=== PATIENT | female | born 1960 | race Caucasian/White ===

== ENCOUNTER 2017-01-11 11:29 | Inpatient (IN) | payer MEDICARE, MEDICAID ==
[~2017-01-11] VITALS: Ht 162.6 cm; Wt 76.8 kg
[~2017-01-11 11:29] MED LIST: AMYL1CAP45 PO; ARIP10TA14 PO; DULO60CA44 PO; GABA-531 PO; INSU100V12 SQ; LISI40TA4 PO; LOPE2 PO; OMEP20 PO
[2017-01-11] MEDS ORDERED: CLON.5 PO (11:43)
[2017-01-11] MEDS ORDERED: SODIUM CHLORIDE 0.9% 1,000 ML IV ONE (11:45)
[2017-01-11 12:40] LABS: APPEARANCE,URINE CLEAR (CLEAR); GLUCOSE, URINE (UA) >=1000 mg/dL (NEGATIVE); KETONES,URINE NEGATIVE (NEGATIVE); LEUKOCYTE ESTERASE ,URINE NEGATIVE (NEGATIVE); OCCULT BLOOD,URINE NEGATIVE (NEGATIVE); PH,URINE 5.5 (5.0-8.0); PROTEIN,URINE NEGATIVE (NEGATIVE)
[2017-01-11 12:42] LABS: ADD UA MICROSCOPIC YES
[2017-01-11 12:50] LABS: RBC,URINE 0-2 /HPF (0-2); SQUAMOUS EPITHELIAL CELL,UR Few /LPF (None Seen); WBC,URINE 0-2 /HPF (0-5)
[2017-01-11 13:03] LABS: BASOPHILS # (AUTO) 0.02 K/uL (0.00-0.20); BASOPHILS % (AUTO) 0.5 % (0.0-2.0); EOSINOPHILS # (AUTO) 0.04 K/uL (0.00-0.70); EOSINOPHILS % (AUTO) 1.09 % (1.0-6.0); HEMOGLOBIN 9.5 g/dL (12.0-16.0); LYMPHOCYTES # (AUTO) 1.4 K/uL (1.0-4.8); LYMPHOCYTES % (AUTO) 35.4 % (22.0-44.0); MEAN CORPUSCULAR HEMOGLOBIN 27.4 pg (26.0-34.0); MEAN CORPUSCULAR HGB CONC 32.9 G/dL (31.0-37.0); MEAN CORPUSCULAR VOLUME 83 fL (80-100); MONOCYTES # (AUTO) 0.5 K/uL (0.1-1.0); PLATELET COUNT (AUTO) 244 K/uL (150-450); RED BLOOD CELL COUNT(AUTO) 3.47 MIL/uL (4.00-5.20); RED CELL DISTRIBUTION WIDTH 15.7 % (11.5-14.5)
[2017-01-11 13:24] LABS: ANION GAP 7 mmol/L (8-16); CALCIUM, TOTAL 9.3 mg/dL (8.8-10.5); CARBON DIOXIDE 27 mmol/L (22-29); CHLORIDE 103 mmol/L (98-107); CREATININE 1.75 mg/dL (0.60-1.30); GLOMERULAR FILTR. RATE CALC 30 mL/min (>60); POTASSIUM 4.4 mmol/L (3.5-5.1); SODIUM SERUM 137 mmol/L (136-145); UREA NITROGEN, BLOOD 29 mg/dL (7-18)
[2017-01-11 13:30] LABS: ALANINE AMINOTRANSFERASE 38 U/L (12-78); ASPARTATE AMINOTRANSFERASE 72 U/L (15-37); BILIRUBIN,TOTAL 0.3 mg/dL (0.1-1.0); TOTAL PROTEIN, SERUM 7.1 g/dL (6.4-8.2)
[2017-01-11 13:40] LABS: ACETAMINOPHEN < 2 mcg/mL (10-30)
[2017-01-11 13:43] LABS: SALICYLATE < 2.8 mg/dL (2.8-20.0)
[2017-01-11 15:50] LABS: SALICYLATE < 2.8 mg/dL (2.8-20.0)
[2017-01-11 16:08] LABS: ACETAMINOPHEN < 2 mcg/mL (10-30)
[2017-01-11] MEDS ORDERED: ZOLPIDEM TARTRATE 10 MG TABLET PO PRN (18:15)
[2017-01-11] MEDS ORDERED: LORazepam 2 MG TABLET PO PRN (18:15)
[2017-01-11] MEDS ORDERED: QUEtiapine FUMARATE 100 MG TABLET PO PRN (18:15)
[2017-01-11] MEDS: GABAPENTIN 300 MG CAPSULE PO SCH (20:51)
[2017-01-11 20:57] LABS: GLUCOSE COMMENT 1 Received Meds; GLUCOSE,POINT OF CARE 387 MG/DL (70-110)
[2017-01-11] MEDS ORDERED: PNEUMOCOCCAL VACCINE POLYVALENT 0.5 ML VIAL [PPSV23] IM ONE (21:45)
[2017-01-11] MEDS ORDERED: INFLUENZA VIRUS VACCINE QVS 2016-17 (3YR+)/PF 60 MCG/0.5 ML SYRINGE IM ONE (21:45)
[2017-01-11 21:49] VITALS: BP 155/85
[2017-01-11] MEDS ORDERED: GLUCAGON,HUMAN RECOMBINANT 1 MG VIAL IM PRN (22:00)
[2017-01-11] MEDS ORDERED: ACETAMINOPHEN 325 MG TABLET PO PRN (22:00)
[2017-01-11] MEDS: LISINOPRIL 20 MG TABLET PO SCH (22:14)
[2017-01-11] MEDS ORDERED: INSULIN ASPART 100 UNITS/ML SQ ONE (22:15)
[2017-01-12] MEDS ORDERED: INSULIN GLARGINE,HUM.REC.ANLOG 100 UNITS/ML SQ ONE (05:30)
[2017-01-12 06:30] VITALS: BP 116/67
[2017-01-12] MEDS: INSULIN ASPART 100 UNITS/ML SQ PRN ×4 (07:07→20:42)
[2017-01-12 07:12] LABS: GLUCOSE,POINT OF CARE 272 MG/DL (70-110)
[2017-01-12 08:22] VITALS: BP 107/70
[2017-01-12] MEDS ORDERED: INSULIN DETEMIR 100 UNITS/ML SQ SCH (09:00)
[2017-01-12] MEDS: ARIPiprazole 10 MG TABLET PO SCH (09:43)
[2017-01-12] MEDS: OMEPRAZOLE 20 MG CAPSULE PO SCH ×2 (09:44→16:48)
[2017-01-12] MEDS: LISINOPRIL 20 MG TABLET PO SCH (09:44)
[2017-01-12] MEDS: AMYLASE/LIPASE/PROTEASE 30/6/19 MU DR CAPSULE PO SCH (09:44)
[2017-01-12] MEDS: DULoxetine HCL 20 MG CAPSULE PO SCH (09:44)
[2017-01-12] MEDS: MULTIVITAMINS WITH IRON TABLET PO SCH (09:45)
[2017-01-12] MEDS: GABAPENTIN 300 MG CAPSULE PO SCH ×4 (09:47→20:43)
[2017-01-12 10:57] LABS: GLUCOSE,POINT OF CARE 386 MG/DL (70-110)
[2017-01-12 16:54] VITALS: BP 110/66
[2017-01-12] MEDS ORDERED: INSULIN GLARGINE,HUM.REC.ANLOG 100 UNITS/ML SQ SCH (21:00)
[2017-01-13 00:10] VITALS: BP 101/66
[2017-01-13] MEDS: INSULIN ASPART 100 UNITS/ML SQ PRN ×4 (07:01→20:46)
[2017-01-13 08:24] LABS: HEMOGLOBIN A1C 11.8 % (4.5-6.2)
[2017-01-13 08:34] LABS: CHOL/HDL RATIO 2.8 (3.9-5.7); THYROID STIMULATING HORMONE 0.59 uIU/mL (0.36-3.74)
[2017-01-13 08:53] VITALS: BP 116/71
[2017-01-13 09:22] LABS: GLUCOSE,POINT OF CARE 229 MG/DL (70-110)
[2017-01-13 09:22] LABS: GLUCOSE,POINT OF CARE 254 MG/DL (70-110)
[2017-01-13 09:22] LABS: GLUCOSE,POINT OF CARE 269 MG/DL (70-110)
[2017-01-13] MEDS: ARIPiprazole 10 MG TABLET PO SCH (09:27)
[2017-01-13] MEDS: LISINOPRIL 20 MG TABLET PO SCH (09:27)
[2017-01-13] MEDS: GABAPENTIN 300 MG CAPSULE PO SCH ×4 (09:27→20:36)
[2017-01-13] MEDS: OMEPRAZOLE 20 MG CAPSULE PO SCH ×2 (09:27→16:37)
[2017-01-13] MEDS: MULTIVITAMINS WITH IRON TABLET PO SCH (09:27)
[2017-01-13] MEDS: DULoxetine HCL 20 MG CAPSULE PO SCH (09:27)
[2017-01-13] MEDS: AMYLASE/LIPASE/PROTEASE 30/6/19 MU DR CAPSULE PO SCH (09:28)
[2017-01-13] MEDS: INSULIN DETEMIR 100 UNITS/ML SQ SCH (09:52)
[2017-01-13 10:01] LABS: GLUCOSE,POINT OF CARE 318 MG/DL (70-110)
[2017-01-13 11:32] LABS: GLUCOSE,POINT OF CARE 339 MG/DL (70-110)
[2017-01-13] MEDS: GEMFIBROZIL 600 MG TABLET PO SCH (16:37)
[2017-01-13 16:38] VITALS: BP 106/73
[2017-01-13 16:52] LABS: GLUCOSE,POINT OF CARE 383 MG/DL (70-110)
[2017-01-13 20:52] LABS: GLUCOSE,POINT OF CARE 303 MG/DL (70-110)
[2017-01-14 06:12] VITALS: BP 140/76
[2017-01-14] MEDS: GEMFIBROZIL 600 MG TABLET PO SCH ×2 (06:41→16:11)
[2017-01-14] MEDS: INSULIN ASPART 100 UNITS/ML SQ PRN ×3 (06:43→16:30)
[2017-01-14] MEDS ORDERED: FERROUS SULFATE 325 MG EC TABLET PO SCH (07:00)
[2017-01-14 09:00] VITALS: BP 132/75
[2017-01-14] MEDS: GABAPENTIN 300 MG CAPSULE PO SCH ×3 (09:32→16:36)
[2017-01-14] MEDS: LISINOPRIL 20 MG TABLET PO SCH (09:32)
[2017-01-14] MEDS: MULTIVITAMINS WITH IRON TABLET PO SCH (09:32)
[2017-01-14] MEDS: ARIPiprazole 10 MG TABLET PO SCH (09:32)
[2017-01-14] MEDS: OMEPRAZOLE 20 MG CAPSULE PO SCH ×2 (09:32→16:36)
[2017-01-14] MEDS: DULoxetine HCL 20 MG CAPSULE PO SCH (09:33)
[2017-01-14] MEDS: AMYLASE/LIPASE/PROTEASE 30/6/19 MU DR CAPSULE PO SCH (09:33)
[2017-01-14] MEDS: INSULIN DETEMIR 100 UNITS/ML SQ SCH (09:44)
[2017-01-14 10:27] LABS: GLUCOSE,POINT OF CARE 271 MG/DL (70-110)
[2017-01-14 11:37] LABS: GLUCOSE,POINT OF CARE 294 MG/DL (70-110)
[2017-01-14 11:37] LABS: GLUCOSE,POINT OF CARE 271 MG/DL (70-110)
[2017-01-14] MEDS ORDERED: ACETAMINOPHEN 325 MG TABLET PO PRN (12:45)
[2017-01-14] MEDS ORDERED: PROMETHAZINE HCL 25 MG TABLET PO PRN (12:45)
[2017-01-14] MEDS ORDERED: MAGNESIUM HYDROXIDE SUSPENSION 30 ML UDCUP PO PRN (12:45)
[2017-01-14] MEDS ORDERED: MAG HYDROX/AL HYDROX/SIMETH ES 30 ML SUSPENSION UDCUP PO PRN (12:45)
[2017-01-14] MEDS ORDERED: LOPERAMIDE HCL 2 MG CAPSULE PO PRN (12:45)
[2017-01-14] MEDS ORDERED: DULO20CA30 PO (14:38)
[2017-01-14] MEDS ORDERED: GABA-531 PO (14:38)
[2017-01-14] MEDS ORDERED: ARIP10TA14 PO (14:38)
[2017-01-14] MEDS ORDERED: MVITFE PO (14:55)
[2017-01-14] MEDS ORDERED: GEMF600T3 PO (14:55)
[2017-01-14] MEDS ORDERED: FERR-89 PO (14:55)
[2017-01-14 16:24] LABS: GLUCOSE,POINT OF CARE 370 MG/DL (70-110)
[2017-01-14 16:36] VITALS: BP 136/83
[2017-01-15 14:37] LABS: HEPATITIS Bs ANTIGEN SCREEN P Negative (Negative); HEPATITIS C AB SCREEN 0.1 s/co ratio (0.0-0.9)
== END 2017-01-14 17:15 | disposition home or self-care (01) | DRG 885 ==
LOC: EMS 11:33 → B2S 19:30 → B2X 01-14 11:20
PROVIDERS: ADMIT Psychiatry & Neurology Psychiatry; ATTEND Psychiatry & Neurology Psychiatry
DX: F33.3 Major depressive disorder, recurrent, severe with psychotic symptoms (principal); D64.9 Anemia, unspecified; E11.42 Type 2 diabetes mellitus with diabetic polyneuropathy; E78.5 Hyperlipidemia, unspecified; F20.9 Schizophrenia, unspecified; I10 Essential (primary) hypertension; K21.9 Gastro-esophageal reflux disease without esophagitis; E11.649 Type 2 diabetes mellitus with hypoglycemia without coma; T42.4X1A Poisoning by benzodiazepines, accidental (unintentional), initial encounter; Z91.19 Patient's noncompliance with other medical treatment and regimen; Y92.89 Other specified places as the place of occurrence of the external cause; Y93.89 Activity, other specified; Y99.8 Other external cause status; Z88.5 Allergy status to narcotic agent; Z90.49 Acquired absence of other specified parts of digestive tract; Z90.710 Acquired absence of both cervix and uterus; Z79.899 Other long term (current) drug therapy; Z98.890 Other specified postprocedural states; Z28.21 Immunization not carried out because of patient refusal; Z84.89 Family history of other specified conditions; Z83.3 Family history of diabetes mellitus
CPT/HCPCS: 70450; 80074; 82962; 83036; 84439; 84443; 87081; 93005; 96360; 99285; G0480; G0481; J1815; J7030

== ENCOUNTER 2017-07-09 21:20 | Emergency (ER) | payer MEDICARE, MEDICAID ==
[~2017-07-09] VITALS: Ht 162.6 cm; Wt 68.0 kg
[~2017-07-09 21:20] MED LIST changes: +DULO20CA30 PO; -DULO60CA44 PO; +FERR-89 PO; +GEMF600T3 PO; -LOPE2 PO; +MVITFE PO
[2017-07-09] MEDS ORDERED: INSU100C14 SQ (21:22)
[2017-07-09 21:51] LABS: BASOPHILS % (AUTO) 0.8 % (0.0-2.0); EOSINOPHILS % (AUTO) 0.4 % (1.0-6.0); HEMATOCRIT 30.8 % (36-46); HEMOGLOBIN 10.1 g/dL (12.0-16.0); LYMPHOCYTES # (AUTO) 2.2 K/uL (1.0-4.8); LYMPHOCYTES % (AUTO) 52.6 % (22.0-44.0); MEAN CORPUSCULAR HEMOGLOBIN 26.3 pg (26.0-34.0); MEAN CORPUSCULAR HGB CONC 32.7 G/dL (31.0-37.0); MEAN CORPUSCULAR VOLUME 81 fL (80-100); MONOCYTES # (AUTO) 0.4 K/uL (0.1-1.0); MONOCYTES % (AUTO) 9.3 % (2.0-9.0); NEUTROPHILS # (AUTO) 1.6 K/uL (1.8-7.7); NEUTROPHILS % (AUTO) 36.9 % (40.0-70.0); PLATELET COUNT (AUTO) 201 K/uL (150-450); RED BLOOD CELL COUNT(AUTO) 3.83 MIL/uL (4.00-5.20); WHITE BLOOD COUNT (AUTO) 4.2 K/uL (4.5-11.0)
[2017-07-09 22:06] LABS: APPEARANCE,URINE CLEAR (CLEAR); GLUCOSE, URINE (UA) >=1000 mg/dL (NEGATIVE); KETONES,URINE NEGATIVE (NEGATIVE); LEUKOCYTE ESTERASE ,URINE NEGATIVE (NEGATIVE); OCCULT BLOOD,URINE NEGATIVE (NEGATIVE); PROTEIN,URINE NEGATIVE (NEGATIVE)
[2017-07-09 22:08] LABS: BILIRUBIN,TOTAL 0.5 mg/dL (0.1-1.0); CALCIUM, TOTAL 9.7 mg/dL (8.8-10.5); CREATININE 2.09 mg/dL (0.60-1.30); POTASSIUM 4.1 mmol/L (3.5-5.1); TOTAL PROTEIN, SERUM 8.1 g/dL (6.4-8.2)
[2017-07-09 22:10] LABS: ADD UA MICROSCOPIC YES
[2017-07-09 22:13] LABS: GLUCOSE,POINT OF CARE > 600 MG/DL (70-110)
[2017-07-09] MEDS ORDERED: SODIUM CHLORIDE 0.9% 1,000 ML IV ONE (22:15)
[2017-07-09 22:16] LABS: RBC MORPHOLOGY COMMENT ABNORMAL RBC MORPH
[2017-07-09 22:18] LABS: RBC,URINE 0-2 /HPF (0-2); SQUAMOUS EPITHELIAL CELL,UR Few /LPF (None Seen); WBC,URINE 0-2 /HPF (0-5)
[2017-07-09 23:32] LABS: GLUCOSE,POINT OF CARE 551 MG/DL (70-110)
[2017-07-10] MEDS ORDERED: ACETAMINOPHEN 500 MG TABLET PO ONE
[2017-07-10] MEDS ORDERED: SODIUM CHLORIDE 0.9% 2,000 ML IV ONE
[2017-07-10] MEDS ORDERED: INSULIN REGULAR, HUMAN 100 UNITS/ML IVP ONE
[2017-07-10] MEDS ORDERED: ONDANSETRON HCL 4 MG/2 ML VIAL IVP ONE
[2017-07-10] MEDS ORDERED: DIPHENOXYLATE/ATROP 2.5-0.025 MG TABLET PO ONE
[2017-07-10 01:17] LABS: GLUCOSE,POINT OF CARE 210 MG/DL (70-110)
[2017-07-10 02:32] LABS: GLUCOSE,POINT OF CARE 169 MG/DL (70-110)
[2017-07-10 03:17] VITALS: BP 157/78
== END 2017-07-10 04:00 | disposition home or self-care (01) ==
LOC: EMS 21:23
DX: K52.9 Noninfective gastroenteritis and colitis, unspecified (principal); E11.65 Type 2 diabetes mellitus with hyperglycemia; E86.0 Dehydration; F17.210 Nicotine dependence, cigarettes, uncomplicated; Z79.4 Long term (current) use of insulin; Z88.5 Allergy status to narcotic agent; Z88.6 Allergy status to analgesic agent
CPT/HCPCS: 36415; 80053; 81001; 82009; 82150; 82962; 85025; 96361; 96374; 96375; 99285; 99406; J1815; J2405; J7030

== ENCOUNTER → 2017-10-22 | Outpatient (CLI) | payer MEDICARE, OTHER ==
[~2017-10-22] MED LIST changes: -ARIP10TA14 PO; +ARIP10TA8 PO; +INSU100C14 SQ
== END | disposition home or self-care (01) ==
LOC: RADPV 15:06
PROVIDERS: ATTEND Internal Medicine Geriatric Medicine
DX: M47.812 Spondylosis without myelopathy or radiculopathy, cervical region (principal); M43.12 Spondylolisthesis, cervical region; M43.16 Spondylolisthesis, lumbar region; M54.6 Pain in thoracic spine
CPT/HCPCS: 72040; 72070; 72100

== ENCOUNTER → 2017-11-15 | Outpatient (CLI) | payer MEDICARE, OTHER | END | disposition home or self-care (01) | LOC: RADPV 12:55 | PROVIDERS: ATTEND Internal Medicine Geriatric Medicine | DX: M41.84 Other forms of scoliosis, thoracic region (principal); M43.16 Spondylolisthesis, lumbar region; M46.82 Other specified inflammatory spondylopathies, cervical region; M25.78 Osteophyte, vertebrae | CPT/HCPCS: 72040; 72072; 72100 ==

== ENCOUNTER 2018-03-14 11:59 | Inpatient (IN) | payer MEDICARE, OTHER ==
[~2018-03-14] VITALS: Ht 162.6 cm; Wt 67.3 kg
[2018-03-14] MEDS ORDERED: LISI-662 PO (12:26)
[2018-03-14] MEDS ORDERED: CALC-1017 PO (12:26)
[2018-03-14] MEDS ORDERED: PREG50 PO (12:26)
[2018-03-14] MEDS ORDERED: OMEP20 PO (12:26)
[2018-03-14] MEDS ORDERED: CARI350 PO (12:26)
[2018-03-14] MEDS ORDERED: DULO60CA44 PO (12:26)
[2018-03-14 12:33] LABS: GLUCOSE,POINT OF CARE 404 MG/DL (70-110)
[2018-03-14] MEDS ORDERED: SODIUM CHLORIDE 0.9% 1,000 ML IV ONE ×2 (13:15→13:30)
[2018-03-14] MEDS ORDERED: MAGNESIUM HYDROXIDE SUSPENSION 30 ML UDCUP PO PRN (13:30)
[2018-03-14] MEDS ORDERED: IPRATROPIUM BROMIDE 0.5 MG/2.5 ML NEB SOLUTION NEB PRN (13:30)
[2018-03-14] MEDS ORDERED: BISACODYL 10 MG RECTAL RECTAL SUPPOSITORY PR PRN (13:30)
[2018-03-14] MEDS ORDERED: DEXTROSE 50%-WATER 25 GM/50 ML SYRINGE IVP PRN ×2 (13:30→17:45)
[2018-03-14] MEDS ORDERED: ONDANSETRON HCL 4 MG/2 ML VIAL IVP PRN (13:30)
[2018-03-14] MEDS ORDERED: ALBUTEROL SULFATE 2.5 MG/0.5 ML NEB SOLUTION NEB PRN (13:30)
[2018-03-14] MEDS ORDERED: ZOLPIDEM TARTRATE 5 MG TABLET PO PRN (13:30)
[2018-03-14] MEDS ORDERED: INSULIN LISPRO 100 UNITS/ML SQ PRN (13:30)
[2018-03-14] MEDS ORDERED: HYDROmorphone 2 MG/ML SYRINGE IVP PRN (13:30)
[2018-03-14 13:41] LABS: BASOPHILS % (AUTO) 0.8 % (0.0-2.0); EOSINOPHILS % (AUTO) 0.6 % (1.0-6.0); HEMATOCRIT 32.9 % (36-46); HEMOGLOBIN 10.7 g/dL (12.0-16.0); LYMPHOCYTES # (AUTO) 1.4 K/uL (1.0-4.8); LYMPHOCYTES % (AUTO) 42.1 % (22.0-44.0); MEAN CORPUSCULAR HEMOGLOBIN 27.1 pg (26.0-34.0); MEAN CORPUSCULAR HGB CONC 32.6 G/dL (31.0-37.0); MEAN CORPUSCULAR VOLUME 83 fL (80-100); MONOCYTES # (AUTO) 0.3 K/uL (0.1-1.0); MONOCYTES % (AUTO) 8.1 % (2.0-9.0); NEUTROPHILS # (AUTO) 1.6 K/uL (1.8-7.7); NEUTROPHILS % (AUTO) 48.4 % (40.0-70.0); PLATELET COUNT (AUTO) 186 K/uL (150-450); RED BLOOD CELL COUNT(AUTO) 3.96 MIL/uL (4.00-5.20); RED CELL DISTRIBUTION WIDTH 15.2 % (11.5-14.5)
[2018-03-14 14:11] LABS: ALBUMIN 3.8 g/dL (3.4-5.0); BILIRUBIN,TOTAL 0.4 mg/dL (0.1-1.0); CALCIUM, TOTAL 10.2 mg/dL (8.8-10.5); CREATININE 1.66 mg/dL (0.60-1.30); POTASSIUM 3.8 mmol/L (3.5-5.1); TOTAL PROTEIN, SERUM 8.3 g/dL (6.4-8.2)
[2018-03-14] MEDS: HEPARIN SODIUM,PORCINE 5,000 UNITS/ML VIAL SQ SCH (14:12)
[2018-03-14 14:16] LABS: BILIRUBIN,URINE NEGATIVE (NEGATIVE); GLUCOSE, URINE (UA) >=1000 mg/dL (NEGATIVE); KETONES,URINE TRACE mg/dL (NEGATIVE); LEUKOCYTE ESTERASE ,URINE NEGATIVE (NEGATIVE); NITRATE,URINE NEGATIVE (NEGATIVE); OCCULT BLOOD,URINE NEGATIVE (NEGATIVE); PROTEIN,URINE NEGATIVE (NEGATIVE); UROBILINOGEN,URINE 0.2 mg/dL (<=1.0)
[2018-03-14] MEDS: SODIUM CHLORIDE 0.45% 1,000 ML IV SCH (14:34)
[2018-03-14 14:56] LABS: APPEARANCE,URINE HAZY (CLEAR); BACTERIA,URINE None Seen /HPF (None Seen); RBC,URINE None Seen /HPF (0-2); SQUAMOUS EPITHELIAL CELL,UR Many /LPF (None Seen); WBC,URINE None Seen /HPF (0-5)
[2018-03-14] MEDS ORDERED: INSULIN LISPRO 100 UNITS/ML SQ SCH (15:00)
[2018-03-14 15:33] LABS: GLUCOMETER DEV NAME(LOC) 6N 2D; GLUCOSE,POINT OF CARE 350 MG/DL (70-110)
[2018-03-14 15:36] VITALS: BP 135/79
[2018-03-14] MEDS: HYDROmorphone 2 MG/ML SYRINGE IVP PRN ×2 (17:01→23:59)
[2018-03-14 17:23] LABS: GLUCOMETER DEV NAME(LOC) 6N 2D; GLUCOSE,POINT OF CARE 322 MG/DL (70-110)
[2018-03-14] MEDS: ONDANSETRON HCL 4 MG/2 ML VIAL IVP PRN (17:42)
[2018-03-14] MEDS: INSULIN LISPRO 100 UNITS/ML SQ PRN (18:00)
[2018-03-14] MEDS ORDERED: PNEUMOCOCCAL VACCINE POLYVALENT 0.5 ML VIAL [PPSV23] IM ONE (18:45)
[2018-03-14 20:20] VITALS: BP 160/75
[2018-03-14] MEDS: DULoxetine HCL 60 MG CAPSULE PO SCH (20:36)
[2018-03-14] MEDS: PREGABALIN 75 MG CAPSULE PO SCH (20:36)
[2018-03-14] MEDS ORDERED: PREGABALIN 50 MG CAPSULE PO SCH (21:00)
[2018-03-14] MEDS: LISINOPRIL 20 MG TABLET PO SCH (21:08)
[2018-03-14] MEDS ORDERED: CloNIDine HCL 0.1 MG TABLET PO PRN (21:30)
[2018-03-14 22:22] LABS: GLUCOMETER DEV NAME(LOC) 6N 1E; GLUCOSE,POINT OF CARE 95 MG/DL (70-110)
[2018-03-14] MEDS: INSULIN GLARGINE,HUM.REC.ANLOG 100 UNITS/ML SQ SCH (22:49)
[2018-03-14] MEDS: CIPROFLOXACIN 400 MG/D5% WATER 200 ML IV SCH (22:55)
[2018-03-14 23:37] VITALS: BP 164/95
[2018-03-15] VITALS (7 sets, daily range): BP systolic 94–159; BP diastolic 59–85
[2018-03-15] MEDS: MetroNIDAZOLE 500 MG/NACL 100 ML IV SCH ×3 (00:04→15:23)
[2018-03-15] MEDS: ONDANSETRON HCL 4 MG/2 ML VIAL IVP PRN ×3 (00:14→18:04)
[2018-03-15] MEDS: HEPARIN SODIUM,PORCINE 5,000 UNITS/ML VIAL SQ SCH ×2 (02:56→15:23)
[2018-03-15 05:52] LABS: GLUCOMETER DEV NAME(LOC) 6N 1E; GLUCOSE,POINT OF CARE 207 MG/DL (70-110)
[2018-03-15] MEDS: INSULIN LISPRO 100 UNITS/ML SQ PRN ×3 (06:20→17:53)
[2018-03-15 06:42] LABS: BASOPHILS % (AUTO) 0.6 % (0.0-2.0); EOSINOPHILS % (AUTO) 0.3 % (1.0-6.0); HEMATOCRIT 29.7 % (36-46); HEMOGLOBIN 9.6 g/dL (12.0-16.0); LYMPHOCYTES # (AUTO) 1.9 K/uL (1.0-4.8); MEAN CORPUSCULAR HEMOGLOBIN 27.1 pg (26.0-34.0); MEAN CORPUSCULAR HGB CONC 32.2 G/dL (31.0-37.0); MEAN CORPUSCULAR VOLUME 84 fL (80-100); MONOCYTES # (AUTO) 0.3 K/uL (0.1-1.0); MONOCYTES % (AUTO) 6.5 % (2.0-9.0); NEUTROPHILS # (AUTO) 2.5 K/uL (1.8-7.7); NEUTROPHILS % (AUTO) 52.6 % (40.0-70.0); PLATELET COUNT (AUTO) 190 K/uL (150-450); RED BLOOD CELL COUNT(AUTO) 3.53 MIL/uL (4.00-5.20); RED CELL DISTRIBUTION WIDTH 15.3 % (11.5-14.5)
[2018-03-15 07:28] LABS: AMYLASE 63 U/L (25-115); ANION GAP 7 mmol/L (8-16); CALCIUM, TOTAL 9.3 mg/dL (8.8-10.5); CARBON DIOXIDE 28 mmol/L (22-29); CHLORIDE 100 mmol/L (98-107); CHOL/HDL RATIO 2.9 (3.9-5.7); CHOLESTEROL 209 mg/dL (131-200); CREATINE KINASE, TOTAL 72 U/L (26-192); CREATININE 1.42 mg/dL (0.60-1.30); FREE T4 (FREE THYROXINE) 1.02 ng/dL (0.76-1.46); GLOMERULAR FILTR. RATE CALC 38 mL/min (>60); GLUCOSE,RANDOM 219 mg/dL (70-110); HDL CHOLESTEROL 73 mg/dL (40-60); LDL CHOL (CALC.) 99 mg/dL (0-130); LIPASE 169 U/L (73-393); POTASSIUM 3.8 mmol/L (3.5-5.1); SODIUM SERUM 135 mmol/L (136-145); THYROID STIMULATING HORMONE 5.18 uIU/mL (0.36-3.74); TRIGLYCERIDES 186 mg/dL (15-150); UREA NITROGEN, BLOOD 21 mg/dL (7-18)
[2018-03-15 07:34] LABS: LACTIC ACID 0.9 mmol/L (0.4-2.0)
[2018-03-15 07:44] LABS: HEMOGLOBIN A1C 10.9 % (4.5-6.2)
[2018-03-15] MEDS: PANTOPRAZOLE SODIUM 40 MG/VIAL IVP SCH (08:00)
[2018-03-15] MEDS: DULoxetine HCL 60 MG CAPSULE PO SCH ×2 (08:01→21:38)
[2018-03-15] MEDS: PREGABALIN 75 MG CAPSULE PO SCH ×2 (08:01→21:38)
[2018-03-15] MEDS: LISINOPRIL 20 MG TABLET PO SCH (08:01)
[2018-03-15 09:27] LABS: FOLATE SERUM 11.4 ng/mL (5.4-)
[2018-03-15] MEDS: CIPROFLOXACIN 400 MG/D5% WATER 200 ML IV SCH ×2 (10:37→23:35)
[2018-03-15] MEDS: SODIUM CHLORIDE 0.45% 1,000 ML IV SCH ×2 (10:45→18:06)
[2018-03-15] MEDS ORDERED: MAGNESIUM SULFATE 2 GM in DEXTROSE 5%-WATER 50 ML IV ONE (10:45)
[2018-03-15] MEDS: HYDROmorphone 2 MG/ML SYRINGE IVP PRN ×2 (11:03→18:04)
[2018-03-15 11:57] LABS: GLUCOMETER DEV NAME(LOC) 6N 2D; GLUCOSE,POINT OF CARE 205 MG/DL (70-110)
[2018-03-15 13:40] LABS: CREATININE,URINE RANDOM 66.5 mg/dL (30.0-125.0)
[2018-03-15 19:37] LABS: GLUCOMETER DEV NAME(LOC) 6N 1E; GLUCOSE,POINT OF CARE 154 MG/DL (70-110)
[2018-03-15] MEDS: INSULIN GLARGINE,HUM.REC.ANLOG 100 UNITS/ML SQ SCH (21:00)
[2018-03-15 23:07] LABS: GLUCOMETER DEV NAME(LOC) 6N 2D; GLUCOSE,POINT OF CARE 142 MG/DL (70-110)
[2018-03-16] VITALS (7 sets, daily range): BP systolic 99–133; BP diastolic 56–79
[2018-03-16] MEDS: MetroNIDAZOLE 500 MG/NACL 100 ML IV SCH ×4 (00:45→23:16)
[2018-03-16] MEDS: HEPARIN SODIUM,PORCINE 5,000 UNITS/ML VIAL SQ SCH ×3 (00:46→23:14)
[2018-03-16] MEDS: HYDROmorphone 2 MG/ML SYRINGE IVP PRN ×3 (03:43→19:50)
[2018-03-16] MEDS: ONDANSETRON HCL 4 MG/2 ML VIAL IVP PRN ×3 (03:47→19:50)
[2018-03-16] MEDS: INSULIN LISPRO 100 UNITS/ML SQ PRN ×4 (05:08→20:22)
[2018-03-16 05:54] LABS: BASOPHILS % (AUTO) 0.7 % (0.0-2.0); EOSINOPHILS % (AUTO) 0.5 % (1.0-6.0); HEMATOCRIT 27.8 % (36-46); HEMOGLOBIN 9.2 g/dL (12.0-16.0); LYMPHOCYTES # (AUTO) 1.5 K/uL (1.0-4.8); LYMPHOCYTES % (AUTO) 33.3 % (22.0-44.0); MEAN CORPUSCULAR HEMOGLOBIN 27.8 pg (26.0-34.0); MEAN CORPUSCULAR VOLUME 84 fL (80-100); MONOCYTES # (AUTO) 0.3 K/uL (0.1-1.0); MONOCYTES % (AUTO) 6.7 % (2.0-9.0); NEUTROPHILS # (AUTO) 2.7 K/uL (1.8-7.7); NEUTROPHILS % (AUTO) 58.8 % (40.0-70.0); PLATELET COUNT (AUTO) 184 K/uL (150-450); RED CELL DISTRIBUTION WIDTH 15.4 % (11.5-14.5)
[2018-03-16 06:15] LABS: PROTHROMBIN TIME 10.2 SEC (9.4-11.6)
[2018-03-16 06:21] LABS: CALCIUM, TOTAL 9.2 mg/dL (8.8-10.5); CREATININE 2.14 mg/dL (0.60-1.30); MAGNESIUM 1.9 mg/dL (1.80-2.40); POTASSIUM 3.6 mmol/L (3.5-5.1)
[2018-03-16 06:28] LABS: GLUCOMETER DEV NAME(LOC) 6N 1E; GLUCOSE,POINT OF CARE 180 MG/DL (70-110)
[2018-03-16 06:43] LABS: PHOSPHORUS 3.9 mg/dL (2.5-4.9)
[2018-03-16] MEDS: PREGABALIN 75 MG CAPSULE PO SCH ×2 (08:07→19:49)
[2018-03-16] MEDS: LISINOPRIL 20 MG TABLET PO SCH (08:07)
[2018-03-16] MEDS: DULoxetine HCL 60 MG CAPSULE PO SCH ×2 (08:07→20:21)
[2018-03-16] MEDS: CARISOPRODOL 350 MG TABLET PO PRN (08:08)
[2018-03-16] MEDS: PANTOPRAZOLE SODIUM 40 MG/VIAL IVP SCH (08:08)
[2018-03-16] MEDS: CIPROFLOXACIN 400 MG/D5% WATER 200 ML IV SCH ×2 (11:13→23:14)
[2018-03-16] MEDS: SODIUM CHLORIDE 0.45% 1,000 ML IV SCH (11:15)
[2018-03-16 11:53] LABS: GLUCOMETER DEV NAME(LOC) 6N 1E; GLUCOSE,POINT OF CARE 214 MG/DL (70-110)
[2018-03-16 18:12] LABS: GLUCOMETER DEV NAME(LOC) 6N 1E; GLUCOSE,POINT OF CARE 199 MG/DL (70-110)
[2018-03-16] MEDS: INSULIN GLARGINE,HUM.REC.ANLOG 100 UNITS/ML SQ SCH (20:22)
[2018-03-16 23:37] LABS: GLUCOMETER DEV NAME(LOC) 6N 2D; GLUCOSE,POINT OF CARE 189 MG/DL (70-110)
[2018-03-17 04:10] VITALS: BP 143/82
[2018-03-17] MEDS: CARISOPRODOL 350 MG TABLET PO PRN (04:32)
[2018-03-17] MEDS: INSULIN LISPRO 100 UNITS/ML SQ PRN ×3 (05:57→17:04)
[2018-03-17] MEDS: SODIUM CHLORIDE 0.45% 1,000 ML IV SCH ×2 (05:57→23:22)
[2018-03-17 06:20] LABS: BASOPHILS % (AUTO) 0.9 % (0.0-2.0); EOSINOPHILS % (AUTO) 2.3 % (1.0-6.0); HEMATOCRIT 25.6 % (36-46); HEMOGLOBIN 8.5 g/dL (12.0-16.0); LYMPHOCYTES # (AUTO) 0.9 K/uL (1.0-4.8); LYMPHOCYTES % (AUTO) 32.5 % (22.0-44.0); MEAN CORPUSCULAR HEMOGLOBIN 27.9 pg (26.0-34.0); MEAN CORPUSCULAR HGB CONC 33.2 G/dL (31.0-37.0); MEAN CORPUSCULAR VOLUME 84 fL (80-100); MONOCYTES # (AUTO) 0.3 K/uL (0.1-1.0); NEUTROPHILS # (AUTO) 1.5 K/uL (1.8-7.7); NEUTROPHILS % (AUTO) 52.3 % (40.0-70.0); PLATELET COUNT (AUTO) 152 K/uL (150-450); RED BLOOD CELL COUNT(AUTO) 3.05 MIL/uL (4.00-5.20)
[2018-03-17 06:26] LABS: BILIRUBIN,TOTAL 0.3 mg/dL (0.1-1.0); CALCIUM, TOTAL 9.1 mg/dL (8.8-10.5); CREATININE 2.26 mg/dL (0.60-1.30); POTASSIUM 3.6 mmol/L (3.5-5.1); TOTAL PROTEIN, SERUM 6.5 g/dL (6.4-8.2)
[2018-03-17 06:37] LABS: GLUCOMETER DEV NAME(LOC) 6N 1E; GLUCOSE,POINT OF CARE 132 MG/DL (70-110)
[2018-03-17] MEDS: HYDROmorphone 2 MG/ML SYRINGE IVP PRN ×3 (07:49→20:00)
[2018-03-17] MEDS: PREGABALIN 75 MG CAPSULE PO SCH ×2 (07:55→23:23)
[2018-03-17] MEDS: ONDANSETRON HCL 4 MG/2 ML VIAL IVP PRN ×3 (07:55→20:01)
[2018-03-17] MEDS: MetroNIDAZOLE 500 MG/NACL 100 ML IV SCH ×2 (07:55→15:48)
[2018-03-17] MEDS: DULoxetine HCL 60 MG CAPSULE PO SCH ×2 (07:55→23:22)
[2018-03-17] MEDS: PANTOPRAZOLE SODIUM 40 MG/VIAL IVP SCH (07:55)
[2018-03-17 08:00] VITALS: BP 137/71
[2018-03-17] MEDS: CIPROFLOXACIN 400 MG/D5% WATER 200 ML IV SCH ×2 (11:06→23:23)
[2018-03-17 11:20] VITALS: BP 147/83
[2018-03-17] MEDS ORDERED: HYDROmorphone 2 MG/ML SYRINGE IVP PRN ×2 (13:30)
[2018-03-17] MEDS: HEPARIN SODIUM,PORCINE 5,000 UNITS/ML VIAL SQ SCH ×2 (14:19→23:23)
[2018-03-17 15:26] VITALS: BP 135/82
[2018-03-17 18:03] LABS: GLUCOMETER DEV NAME(LOC) 6N 1E; GLUCOSE,POINT OF CARE 136 MG/DL (70-110)
[2018-03-17 19:41] VITALS: BP 117/71
[2018-03-17] MEDS: INSULIN GLARGINE,HUM.REC.ANLOG 100 UNITS/ML SQ SCH (21:00)
[2018-03-18 00:08] LABS: GLUCOMETER DEV NAME(LOC) 6N 1E; GLUCOSE,POINT OF CARE 130 MG/DL (70-110)
[2018-03-18] MEDS: MetroNIDAZOLE 500 MG/NACL 100 ML IV SCH ×4 (00:28→23:53)
[2018-03-18 00:49] VITALS: BP 122/72
[2018-03-18] MEDS: ONDANSETRON HCL 4 MG/2 ML VIAL IVP PRN ×2 (03:08→12:15)
[2018-03-18] MEDS: HYDROmorphone 2 MG/ML SYRINGE IVP PRN ×4 (03:08→19:31)
[2018-03-18] MEDS: SODIUM CHLORIDE 0.45% 1,000 ML IV SCH ×2 (03:18→17:36)
[2018-03-18 05:02] LABS: GLUCOMETER DEV NAME(LOC) 6N 2D; GLUCOSE,POINT OF CARE 136 MG/DL (70-110)
[2018-03-18 05:11] VITALS: BP 105/63
[2018-03-18 05:57] LABS: GLUCOMETER DEV NAME(LOC) 6N 2D; GLUCOSE,POINT OF CARE 186 MG/DL (70-110)
[2018-03-18 07:20] VITALS: BP 114/73
[2018-03-18 08:07] LABS: % IRON SATURATION 16.2 % (22-44)
[2018-03-18] MEDS: PANTOPRAZOLE SODIUM 40 MG/VIAL IVP SCH (08:34)
[2018-03-18] MEDS: DULoxetine HCL 60 MG CAPSULE PO SCH ×2 (08:34→19:32)
[2018-03-18] MEDS: HEPARIN SODIUM,PORCINE 5,000 UNITS/ML VIAL SQ SCH ×2 (08:34→19:31)
[2018-03-18] MEDS: PREGABALIN 75 MG CAPSULE PO SCH ×2 (08:34→19:31)
[2018-03-18] MEDS ORDERED: SODIUM CHLORIDE 0.9% 1,000 ML IV ONE ×2 (11:28→14:30)
[2018-03-18] MEDS: CIPROFLOXACIN 400 MG/D5% WATER 200 ML IV SCH ×2 (11:29→22:17)
[2018-03-18 11:37] VITALS: BP 120/73
[2018-03-18] MEDS ORDERED: SOD FERRIC GLUC COMPLX/SUCROSE 125 MG in SODIUM CHLORIDE 0.9% 100 ML IV SCH (12:00)
[2018-03-18 13:43] LABS: GLUCOMETER DEV NAME(LOC) 6N 1E; GLUCOSE,POINT OF CARE 188 MG/DL (70-110)
[2018-03-18 17:27] LABS: GLUCOMETER DEV NAME(LOC) PV 4E2; GLUCOSE,POINT OF CARE 161 MG/DL (70-110)
[2018-03-18] MEDS: INSULIN LISPRO 100 UNITS/ML SQ PRN ×2 (17:39→19:51)
[2018-03-18] MEDS: CARISOPRODOL 350 MG TABLET PO PRN (19:32)
[2018-03-18] MEDS: INSULIN GLARGINE,HUM.REC.ANLOG 100 UNITS/ML SQ SCH (19:51)
[2018-03-18 19:52] VITALS: BP 106/68
[2018-03-18 23:50] VITALS: BP 105/62
[2018-03-19 03:57] LABS: GLUCOMETER DEV NAME(LOC) PV 4E2; GLUCOSE,POINT OF CARE 162 MG/DL (70-110)
[2018-03-19] MEDS: HYDROmorphone 2 MG/ML SYRINGE IVP PRN ×2 (04:55→09:45)
[2018-03-19] MEDS: INSULIN LISPRO 100 UNITS/ML SQ PRN (05:00)
[2018-03-19 05:03] LABS: GLUCOMETER DEV NAME(LOC) PV 4E2; GLUCOSE,POINT OF CARE 123 MG/DL (70-110)
[2018-03-19 05:11] VITALS: BP 128/74
[2018-03-19 06:28] LABS: BASOPHILS % (AUTO) 1.4 % (0.0-2.0); EOSINOPHILS % (AUTO) 4.8 % (1.0-6.0); HEMATOCRIT 25.5 % (36-46); HEMOGLOBIN 8.5 g/dL (12.0-16.0); LYMPHOCYTES # (AUTO) 0.9 K/uL (1.0-4.8); LYMPHOCYTES % (AUTO) 38.3 % (22.0-44.0); MEAN CORPUSCULAR HEMOGLOBIN 28.2 pg (26.0-34.0); MEAN CORPUSCULAR HGB CONC 33.5 G/dL (31.0-37.0); MEAN CORPUSCULAR VOLUME 84 fL (80-100); MONOCYTES # (AUTO) 0.4 K/uL (0.1-1.0); NEUTROPHILS # (AUTO) 0.9 K/uL (1.8-7.7); NEUTROPHILS % (AUTO) 39.5 % (40.0-70.0); PLATELET COUNT (AUTO) 157 K/uL (150-450); RED BLOOD CELL COUNT(AUTO) 3.04 MIL/uL (4.00-5.20)
[2018-03-19 07:12] LABS: CALCIUM, TOTAL 9.1 mg/dL (8.8-10.5); CREATININE 2.17 mg/dL (0.60-1.30); MAGNESIUM 1.6 mg/dL (1.80-2.40); PHOSPHORUS 3.3 mg/dL (2.5-4.9); POTASSIUM 3.9 mmol/L (3.5-5.1)
[2018-03-19 07:50] VITALS: BP 118/63
[2018-03-19] MEDS: MetroNIDAZOLE 500 MG/NACL 100 ML IV SCH (08:00)
[2018-03-19] MEDS ORDERED: MAGNESIUM SULFATE 3 GM in DEXTROSE 5%-WATER 100 ML IV ONE (09:30)
[2018-03-19] MEDS: SODIUM CHLORIDE 0.45% 1,000 ML IV SCH (09:33)
[2018-03-19] MEDS: DULoxetine HCL 60 MG CAPSULE PO SCH (09:33)
[2018-03-19] MEDS: PREGABALIN 75 MG CAPSULE PO SCH (09:33)
[2018-03-19] MEDS: PANTOPRAZOLE SODIUM 40 MG/VIAL IVP SCH (09:33)
[2018-03-19] MEDS: HEPARIN SODIUM,PORCINE 5,000 UNITS/ML VIAL SQ SCH (09:33)
[2018-03-19] MEDS: ONDANSETRON HCL 4 MG/2 ML VIAL IVP PRN (09:45)
[2018-03-19 11:33] VITALS: BP 98/59
[2018-03-19] MEDS ORDERED: PANT40TA25 PO (11:57)
[2018-03-19] MEDS ORDERED: CIPR-278 PO (11:58)
[2018-03-19] MEDS ORDERED: METR500 PO (11:58)
== END 2018-03-19 13:05 | disposition home or self-care (01) | DRG 682 ==
LOC: EMS 12:00 → 6N 13:52 → 4E 03-18 07:58
PROVIDERS: ADMIT Internal Medicine Geriatric Medicine; ATTEND Internal Medicine Geriatric Medicine
PROC: 0DB68ZX Excision of Stomach, Via Natural or Artificial Opening Endoscopic, Diagnostic (ICD-10-PCS; principal; 2018-03-18 15:30)
DX: N17.9 Acute kidney failure, unspecified (principal); E11.00 Type 2 diabetes mellitus with hyperosmolarity without nonketotic hyperglycemic-hyperosmolar coma (NKHHC); F11.20 Opioid dependence, uncomplicated; E11.22 Type 2 diabetes mellitus with diabetic chronic kidney disease; F25.9 Schizoaffective disorder, unspecified; E83.42 Hypomagnesemia; F33.9 Major depressive disorder, recurrent, unspecified; K52.9 Noninfective gastroenteritis and colitis, unspecified; I12.9 Hypertensive chronic kidney disease with stage 1 through stage 4 chronic kidney disease, or unspecified chronic kidney disease; K29.70 Gastritis, unspecified, without bleeding; N18.9 Chronic kidney disease, unspecified; D50.9 Iron deficiency anemia, unspecified; G89.29 Other chronic pain; D72.819 Decreased white blood cell count, unspecified; F43.10 Post-traumatic stress disorder, unspecified; F17.210 Nicotine dependence, cigarettes, uncomplicated; Z91.19 Patient's noncompliance with other medical treatment and regimen; Z90.49 Acquired absence of other specified parts of digestive tract; Z90.710 Acquired absence of both cervix and uterus; Z88.8 Allergy status to other drugs, medicaments and biological substances; Z88.6 Allergy status to analgesic agent; Z79.899 Other long term (current) drug therapy; Z79.4 Long term (current) use of insulin; Z98.891 History of uterine scar from previous surgery; Z80.0 Family history of malignant neoplasm of digestive organs; Z83.3 Family history of diabetes mellitus
CPT/HCPCS: 74176; 76700; 80074; 82270; 82306; 82570; 82607; 82728; 82746; 83036; 83540; 83550; 83605; 83735; 84100; 84156; 84300; 84439; 84443; 84540; 88305; 88312; 93005; 96360; 96361; 96372; 99285; C9113; J0744; J1170; J1644; J1815; J2405; J2916; J3475; J3490; J7030; J7050; J7060

== ENCOUNTER 2018-04-13 21:17 | Inpatient (IN) | payer MEDICARE, OTHER ==
[~2018-04-13] VITALS: Ht 165.1 cm; Wt 67.2 kg
[~2018-04-13 21:17] MED LIST changes: -AMYL1CAP45 PO; -ARIP10TA8 PO; +CALC-1017 PO; +CARI350 PO; +CIPR-278 PO; -DULO20CA30 PO; +DULO60CA44 PO; -FERR-89 PO; -GABA-531 PO; -GEMF600T3 PO; -INSU100C14 SQ; -INSU100V12 SQ; +LISI-662 PO; -LISI40TA4 PO; +METR500 PO; -MVITFE PO; -OMEP20 PO; +PANT40TA25 PO; +PREG50 PO
[2018-04-13 22:43] LABS: GLUCOSE,POINT OF CARE 396 MG/DL (70-110)
[2018-04-13 22:48] LABS: BASOPHILS % (AUTO) 0.8 % (0.0-2.0); EOSINOPHILS % (AUTO) 0.9 % (1.0-6.0); HEMATOCRIT 29.5 % (36-46); HEMOGLOBIN 9.5 g/dL (12.0-16.0); LYMPHOCYTES # (AUTO) 1.6 K/uL (1.0-4.8); LYMPHOCYTES % (AUTO) 40.5 % (22.0-44.0); MEAN CORPUSCULAR HEMOGLOBIN 27.4 pg (26.0-34.0); MEAN CORPUSCULAR HGB CONC 32.3 G/dL (31.0-37.0); MEAN CORPUSCULAR VOLUME 85 fL (80-100); MONOCYTES # (AUTO) 0.4 K/uL (0.1-1.0); MONOCYTES % (AUTO) 8.9 % (2.0-9.0); NEUTROPHILS % (AUTO) 48.9 % (40.0-70.0); PLATELET COUNT (AUTO) 151 K/uL (150-450); RED BLOOD CELL COUNT(AUTO) 3.47 MIL/uL (4.00-5.20)
[2018-04-13] MEDS ORDERED: INSU100V12 SQ (23:01)
[2018-04-13] MEDS ORDERED: INSLAN SQ (23:01)
[2018-04-13 23:04] LABS: ALANINE AMINOTRANSFERASE 39 U/L (12-78); ALBUMIN 3.6 g/dL (3.4-5.0); ALKALINE PHOSPHATASE 327 U/L (46-116); ANION GAP 5 mmol/L (8-16); BILIRUBIN,TOTAL 0.3 mg/dL (0.1-1.0); CALCIUM, TOTAL 9.2 mg/dL (8.8-10.5); CARBON DIOXIDE 27 mmol/L (22-29); CHLORIDE 102 mmol/L (98-107); GLOMERULAR FILTR. RATE CALC 17 mL/min (>60); POTASSIUM 5.9 mmol/L (3.5-5.1); SODIUM SERUM 134 mmol/L (136-145); TOTAL PROTEIN, SERUM 7.9 g/dL (6.4-8.2); UREA NITROGEN, BLOOD 42 mg/dL (7-18)
[2018-04-13 23:09] LABS: GLUCOSE,RANDOM 453 mg/dL (70-110)
[2018-04-13 23:18] LABS: ASPARTATE AMINOTRANSFERASE 36 U/L (15-37)
[2018-04-13] MEDS ORDERED: 0.9% SODIUM CHLORIDE 10 ML SYRINGE IVP PRN (23:30)
[2018-04-13] MEDS ORDERED: IPRATROPIUM BROMIDE 0.5 MG/2.5 ML NEB SOLUTION NEB PRN (23:30)
[2018-04-13] MEDS ORDERED: ONDANSETRON HCL 4 MG/2 ML VIAL IVP PRN ×2 (23:30)
[2018-04-13] MEDS ORDERED: ACETAMINOPHEN 325 MG TABLET PO PRN (23:30)
[2018-04-13] MEDS ORDERED: DEXTROSE 50%-WATER 25 GM/50 ML SYRINGE IVP PRN (23:30)
[2018-04-13] MEDS ORDERED: HEPARIN SODIUM,PORCINE 5,000 UNITS/ML VIAL SQ SCH (23:30)
[2018-04-13] MEDS ORDERED: BISACODYL 10 MG RECTAL RECTAL SUPPOSITORY PR PRN (23:30)
[2018-04-13] MEDS ORDERED: INSULIN GLARGINE,HUM.REC.ANLOG 100 UNITS/ML SQ ONE (23:30)
[2018-04-13] MEDS ORDERED: MAGNESIUM HYDROXIDE SUSPENSION 30 ML UDCUP PO PRN (23:30)
[2018-04-13] MEDS ORDERED: ZOLPIDEM TARTRATE 5 MG TABLET PO PRN (23:30)
[2018-04-13] MEDS ORDERED: ALBUTEROL SULFATE 2.5 MG/0.5 ML NEB SOLUTION NEB PRN (23:30)
[2018-04-13] MEDS ORDERED: SODIUM BICARBONATE [ADULT] 8.4% 50 MEQ/50 ML SYRINGE IVP ONE (23:30)
[2018-04-13] MEDS ORDERED: INSULIN REGULAR, HUMAN 100 UNITS/ML IVP ONE (23:30)
[2018-04-13] MEDS ORDERED: SODIUM POLYSTYRENE SULFONATE 15 GM/60 ML SUSPENSION BOTTLE PO ONE (23:30)
[2018-04-14] VITALS (7 sets, daily range): BP systolic 108–167; BP diastolic 60–98
[2018-04-14] MEDS: INSULIN LISPRO 100 UNITS/ML SQ PRN ×4 (05:42→20:56)
[2018-04-14 06:08] LABS: BASOPHILS % (AUTO) 0.5 % (0.0-2.0); EOSINOPHILS % (AUTO) 0.9 % (1.0-6.0); HEMATOCRIT 27.4 % (36-46); HEMOGLOBIN 9.2 g/dL (12.0-16.0); LYMPHOCYTES # (AUTO) 2.4 K/uL (1.0-4.8); LYMPHOCYTES % (AUTO) 50.1 % (22.0-44.0); MEAN CORPUSCULAR HEMOGLOBIN 28.1 pg (26.0-34.0); MEAN CORPUSCULAR HGB CONC 33.4 G/dL (31.0-37.0); MEAN CORPUSCULAR VOLUME 84 fL (80-100); MONOCYTES # (AUTO) 0.4 K/uL (0.1-1.0); MONOCYTES % (AUTO) 8.4 % (2.0-9.0); NEUTROPHILS # (AUTO) 1.9 K/uL (1.8-7.7); NEUTROPHILS % (AUTO) 40.1 % (40.0-70.0); PLATELET COUNT (AUTO) 140 K/uL (150-450); RED BLOOD CELL COUNT(AUTO) 3.26 MIL/uL (4.00-5.20); RED CELL DISTRIBUTION WIDTH 14.7 % (11.5-14.5)
[2018-04-14 06:56] LABS: ALANINE AMINOTRANSFERASE 42 U/L (12-78); ALBUMIN 3.3 g/dL (3.4-5.0); ALKALINE PHOSPHATASE 214 U/L (46-116); AMYLASE 128 U/L (25-115); ANION GAP 8 mmol/L (8-16); BILIRUBIN,TOTAL 0.3 mg/dL (0.1-1.0); CALCIUM, TOTAL 8.9 mg/dL (8.8-10.5); CARBON DIOXIDE 27 mmol/L (22-29); CHLORIDE 106 mmol/L (98-107); CHOL/HDL RATIO 3.3 (3.9-5.7); CHOLESTEROL 195 mg/dL (131-200); CREATINE KINASE, TOTAL 89 U/L (26-192); CREATININE 2.44 mg/dL (0.60-1.30); FREE T4 (FREE THYROXINE) 0.94 ng/dL (0.76-1.46); GLOMERULAR FILTR. RATE CALC 20 mL/min (>60); GLUCOSE,RANDOM 272 mg/dL (70-110); HDL CHOLESTEROL 59 mg/dL (40-60); LDL CHOL (CALC.) 81 mg/dL (0-130); LIPASE 1003 U/L (73-393); POTASSIUM 4.3 mmol/L (3.5-5.1); SODIUM SERUM 141 mmol/L (136-145); TOTAL PROTEIN, SERUM 7.2 g/dL (6.4-8.2); TRIGLYCERIDES 276 mg/dL (15-150); UREA NITROGEN, BLOOD 38 mg/dL (7-18)
[2018-04-14 07:15] LABS: ASPARTATE AMINOTRANSFERASE 53 U/L (15-37)
[2018-04-14] MEDS ORDERED: LORazepam 1 MG TABLET PO PRN (09:00)
[2018-04-14] MEDS: DULoxetine HCL 60 MG CAPSULE PO SCH ×2 (09:31→23:00)
[2018-04-14] MEDS: HEPARIN SODIUM,PORCINE 5,000 UNITS/ML VIAL SQ SCH ×2 (09:32→20:50)
[2018-04-14] MEDS: PANTOPRAZOLE SODIUM 40 MG DR TABLET PO SCH (09:32)
[2018-04-14] MEDS: SOD FERRIC GLUC COMPLX/SUCROSE 125 MG in SODIUM CHLORIDE 0.9% 100 ML IV SCH (12:00)
[2018-04-14] MEDS ORDERED: MAGNESIUM SULFATE 3 GM in DEXTROSE 5%-WATER 100 ML IV ONE (12:00)
[2018-04-14] MEDS: SODIUM CHLORIDE 0.9% 1,000 ML IV SCH (12:25)
[2018-04-14 14:09] LABS: APPEARANCE,URINE CLEAR (CLEAR); BILIRUBIN,URINE NEGATIVE (NEGATIVE); GLUCOSE, URINE (UA) >=1000 mg/dL (NEGATIVE); KETONES,URINE NEGATIVE (NEGATIVE); LEUKOCYTE ESTERASE ,URINE NEGATIVE (NEGATIVE); NITRATE,URINE NEGATIVE (NEGATIVE); OCCULT BLOOD,URINE NEGATIVE (NEGATIVE); PROTEIN,URINE TRACE (NEGATIVE); UROBILINOGEN,URINE 0.2 mg/dL (<=1.0)
[2018-04-14 14:10] LABS: CREATININE,URINE RANDOM 44.6 mg/dL (30.0-125.0); SODIUM,URINE RANDOM 106 mmol/l (20-110); UREA NITROGEN,URINE RANDOM 386 mg/dL (350-1000)
[2018-04-14 14:17] LABS: BACTERIA,URINE None Seen /HPF (None Seen); RBC,URINE None Seen /HPF (0-2); SQUAMOUS EPITHELIAL CELL,UR Rare /LPF (None Seen); WBC,URINE 0-2 /HPF (0-5)
[2018-04-14 15:13] LABS: GLUCOMETER DEV NAME(LOC) 6N 1E; GLUCOSE,POINT OF CARE 299 MG/DL (70-110)
[2018-04-14 15:13] LABS: GLUCOMETER DEV NAME(LOC) 6N 2D; GLUCOSE,POINT OF CARE 282 MG/DL (70-110)
[2018-04-14] MEDS: LORazepam 2 MG TABLET PO PRN (17:55)
[2018-04-14 20:12] LABS: GLUCOMETER DEV NAME(LOC) 6N 2D; GLUCOSE,POINT OF CARE 342 MG/DL (70-110)
[2018-04-14] MEDS: PREGABALIN 25 MG CAPSULE PO SCH (20:50)
[2018-04-14] MEDS ORDERED: INSULIN GLARGINE,HUM.REC.ANLOG 100 UNITS/ML SQ SCH (21:00)
[2018-04-14 22:08] LABS: GLUCOMETER DEV NAME(LOC) 6N 2D; GLUCOSE,POINT OF CARE 345 MG/DL (70-110)
[2018-04-15 04:45] VITALS: BP 137/77
[2018-04-15] MEDS: INSULIN LISPRO 100 UNITS/ML SQ PRN ×4 (05:38→22:41)
[2018-04-15 06:21] LABS: GLUCOMETER DEV NAME(LOC) 6N 2D; GLUCOSE,POINT OF CARE 249 MG/DL (70-110)
[2018-04-15 08:20] LABS: BASOPHILS % (AUTO) 0.8 % (0.0-2.0); EOSINOPHILS % (AUTO) 1.4 % (1.0-6.0); HEMATOCRIT 27.5 % (36-46); HEMOGLOBIN 9.2 g/dL (12.0-16.0); LYMPHOCYTES # (AUTO) 1.9 K/uL (1.0-4.8); LYMPHOCYTES % (AUTO) 65.2 % (22.0-44.0); MEAN CORPUSCULAR HGB CONC 33.4 G/dL (31.0-37.0); MEAN CORPUSCULAR VOLUME 84 fL (80-100); MONOCYTES # (AUTO) 0.2 K/uL (0.1-1.0); MONOCYTES % (AUTO) 8.4 % (2.0-9.0); NEUTROPHILS # (AUTO) 0.7 K/uL (1.8-7.7); NEUTROPHILS % (AUTO) 24.2 % (40.0-70.0); PLATELET COUNT (AUTO) 141 K/uL (150-450); RED BLOOD CELL COUNT(AUTO) 3.27 MIL/uL (4.00-5.20); RED CELL DISTRIBUTION WIDTH 14.4 % (11.5-14.5)
[2018-04-15] MEDS: PANTOPRAZOLE SODIUM 40 MG DR TABLET PO SCH (08:39)
[2018-04-15] MEDS: HEPARIN SODIUM,PORCINE 5,000 UNITS/ML VIAL SQ SCH ×2 (08:39→22:36)
[2018-04-15 08:40] LABS: CREATININE 1.79 mg/dL (0.60-1.30); POTASSIUM 4.4 mmol/L (3.5-5.1)
[2018-04-15] MEDS: LORazepam 2 MG TABLET PO PRN (08:44)
[2018-04-15] MEDS: DULoxetine HCL 60 MG CAPSULE PO SCH ×2 (09:31→22:36)
[2018-04-15] MEDS: PREGABALIN 25 MG CAPSULE PO SCH ×3 (09:32→22:36)
[2018-04-15 09:49] VITALS: BP 135/85
[2018-04-15 11:35] VITALS: BP 133/77
[2018-04-15] MEDS: SOD FERRIC GLUC COMPLX/SUCROSE 125 MG in SODIUM CHLORIDE 0.9% 100 ML IV SCH (11:53)
[2018-04-15 12:08] LABS: GLUCOMETER DEV NAME(LOC) 6N 1E; GLUCOSE,POINT OF CARE 242 MG/DL (70-110)
[2018-04-15 16:00] VITALS: BP 158/91
[2018-04-15] MEDS: CARISOPRODOL 350 MG TABLET PO PRN ×2 (16:12→23:52)
[2018-04-15 17:18] LABS: GLUCOMETER DEV NAME(LOC) 6N 1E; GLUCOSE,POINT OF CARE 276 MG/DL (70-110)
[2018-04-15] MEDS: SODIUM CHLORIDE 0.9% 1,000 ML IV SCH (18:08)
[2018-04-15 20:38] VITALS: BP 160/95
[2018-04-15 23:43] VITALS: BP 147/86
[2018-04-16] LABS: GLUCOMETER DEV NAME(LOC) 6N 1E; GLUCOSE,POINT OF CARE 142 MG/DL (70-110)
[2018-04-16 04:51] VITALS: BP 116/70
[2018-04-16] MEDS: INSULIN LISPRO 100 UNITS/ML SQ PRN ×3 (06:14→20:42)
[2018-04-16 06:30] LABS: BASOPHILS % (AUTO) 0.6 % (0.0-2.0); EOSINOPHILS % (AUTO) 0.9 % (1.0-6.0); HEMATOCRIT 24.9 % (36-46); HEMOGLOBIN 8.6 g/dL (12.0-16.0); LYMPHOCYTES # (AUTO) 1.6 K/uL (1.0-4.8); LYMPHOCYTES % (AUTO) 48.7 % (22.0-44.0); MEAN CORPUSCULAR HEMOGLOBIN 29.2 pg (26.0-34.0); MEAN CORPUSCULAR HGB CONC 34.6 G/dL (31.0-37.0); MEAN CORPUSCULAR VOLUME 84 fL (80-100); MONOCYTES # (AUTO) 0.3 K/uL (0.1-1.0); MONOCYTES % (AUTO) 8.6 % (2.0-9.0); NEUTROPHILS # (AUTO) 1.4 K/uL (1.8-7.7); NEUTROPHILS % (AUTO) 41.2 % (40.0-70.0); PLATELET COUNT (AUTO) 122 K/uL (150-450); RED BLOOD CELL COUNT(AUTO) 2.96 MIL/uL (4.00-5.20); RED CELL DISTRIBUTION WIDTH 14.4 % (11.5-14.5)
[2018-04-16 06:47] LABS: CALCIUM, TOTAL 8.7 mg/dL (8.8-10.5); CREATININE 1.61 mg/dL (0.60-1.30); POTASSIUM 3.9 mmol/L (3.5-5.1)
[2018-04-16 07:08] LABS: GLUCOMETER DEV NAME(LOC) 6N 2D; GLUCOSE,POINT OF CARE 344 MG/DL (70-110)
[2018-04-16 07:13] VITALS: BP 129/78
[2018-04-16] MEDS: PANTOPRAZOLE SODIUM 40 MG DR TABLET PO SCH (08:25)
[2018-04-16] MEDS: HEPARIN SODIUM,PORCINE 5,000 UNITS/ML VIAL SQ SCH ×2 (08:25→20:22)
[2018-04-16] MEDS: DULoxetine HCL 60 MG CAPSULE PO SCH ×2 (08:25→20:22)
[2018-04-16] MEDS: PREGABALIN 25 MG CAPSULE PO SCH ×3 (08:25→20:21)
[2018-04-16] MEDS: INSULIN GLARGINE,HUM.REC.ANLOG 100 UNITS/ML SQ SCH (08:26)
[2018-04-16 11:53] LABS: GLUCOMETER DEV NAME(LOC) 6N 2D; GLUCOSE,POINT OF CARE 254 MG/DL (70-110)
[2018-04-16] MEDS: LORazepam 2 MG TABLET PO PRN ×2 (11:55→20:22)
[2018-04-16] MEDS: SOD FERRIC GLUC COMPLX/SUCROSE 125 MG in SODIUM CHLORIDE 0.9% 100 ML IV SCH (11:55)
[2018-04-16 12:49] VITALS: BP 122/80
[2018-04-16] MEDS ORDERED: PREG25 PO (13:23)
[2018-04-16 15:15] VITALS: BP 136/83
[2018-04-16 16:58] LABS: GLUCOMETER DEV NAME(LOC) 6N 1E; GLUCOSE,POINT OF CARE 100 MG/DL (70-110)
[2018-04-16 20:06] VITALS: BP 139/83
[2018-04-16 20:43] LABS: GLUCOMETER DEV NAME(LOC) 6N 1E; GLUCOSE,POINT OF CARE 182 MG/DL (70-110)
[2018-04-17 00:16] VITALS: BP 124/76
[2018-04-17 04:30] VITALS: BP 131/79
[2018-04-17] MEDS: INSULIN LISPRO 100 UNITS/ML SQ PRN ×3 (06:23→17:42)
[2018-04-17 06:49] LABS: AMYLASE 80 U/L (25-115); LIPASE 541 U/L (73-393)
[2018-04-17 06:57] LABS: GLUCOMETER DEV NAME(LOC) 6N 2D; GLUCOSE,POINT OF CARE 300 MG/DL (70-110)
[2018-04-17 07:09] VITALS: BP 127/77
[2018-04-17] MEDS ORDERED: GADOBUTROL 1 MMOL/ML 10 ML VIAL IVP ONE (08:36)
[2018-04-17] MEDS: HEPARIN SODIUM,PORCINE 5,000 UNITS/ML VIAL SQ SCH (09:23)
[2018-04-17] MEDS: DULoxetine HCL 60 MG CAPSULE PO SCH (09:23)
[2018-04-17] MEDS: PREGABALIN 25 MG CAPSULE PO SCH ×2 (09:23→16:00)
[2018-04-17] MEDS: PANTOPRAZOLE SODIUM 40 MG DR TABLET PO SCH (09:23)
[2018-04-17] MEDS: LORazepam 2 MG TABLET PO PRN (09:28)
[2018-04-17] MEDS: INSULIN GLARGINE,HUM.REC.ANLOG 100 UNITS/ML SQ SCH (09:31)
[2018-04-17] MEDS: SOD FERRIC GLUC COMPLX/SUCROSE 125 MG in SODIUM CHLORIDE 0.9% 100 ML IV SCH (11:17)
[2018-04-17 11:28] LABS: GLUCOMETER DEV NAME(LOC) 6N 1E; GLUCOSE,POINT OF CARE 296 MG/DL (70-110)
[2018-04-17 12:08] VITALS: BP 129/73
[2018-04-17] MEDS: CARISOPRODOL 350 MG TABLET PO PRN (12:12)
[2018-04-17 15:11] VITALS: BP 125/86
[2018-04-17 19:43] LABS: GLUCOMETER DEV NAME(LOC) 6N 2D; GLUCOSE,POINT OF CARE 249 MG/DL (70-110)
== END 2018-04-17 19:40 | disposition home or self-care (01) | DRG 637 ==
LOC: EMS 21:17 → 6N 23:57 → UNDOADMIN 23:58 → 5N 23:58
PROVIDERS: ADMIT Internal Medicine; ATTEND Internal Medicine Geriatric Medicine
DX: E11.65 Type 2 diabetes mellitus with hyperglycemia (principal); K85.90 Acute pancreatitis without necrosis or infection, unspecified; N17.9 Acute kidney failure, unspecified; D61.818 Other pancytopenia; N18.9 Chronic kidney disease, unspecified; I12.9 Hypertensive chronic kidney disease with stage 1 through stage 4 chronic kidney disease, or unspecified chronic kidney disease; E87.5 Hyperkalemia; E83.42 Hypomagnesemia; E11.22 Type 2 diabetes mellitus with diabetic chronic kidney disease; F31.9 Bipolar disorder, unspecified; S20.219A Contusion of unspecified front wall of thorax, initial encounter; S40.012A Contusion of left shoulder, initial encounter; E78.00 Pure hypercholesterolemia, unspecified; F25.9 Schizoaffective disorder, unspecified; F43.10 Post-traumatic stress disorder, unspecified; S50.812A Abrasion of left forearm, initial encounter; S80.212A Abrasion, left knee, initial encounter; X58.XXXA Exposure to other specified factors, initial encounter; Z59.0 Homelessness; Z91.19 Patient's noncompliance with other medical treatment and regimen; Z90.710 Acquired absence of both cervix and uterus; F17.210 Nicotine dependence, cigarettes, uncomplicated; Z79.899 Other long term (current) drug therapy; Z79.4 Long term (current) use of insulin; Z88.5 Allergy status to narcotic agent; Z88.8 Allergy status to other drugs, medicaments and biological substances; Z91.5 Personal history of self-harm; Y93.89 Activity, other specified; Y92.89 Other specified places as the place of occurrence of the external cause; Y99.8 Other external cause status
CPT/HCPCS: 71101; 74183; 76700; 82306; 82570; 82607; 82746; 83036; 83735; 84300; 84439; 84540; 87081; 96372; 96374; 96375; 99285; 99406; A9585; G0480; J1644; J1815; J2916; J3475; J3490; J7030; J7050; J7060

== ENCOUNTER → 2018-04-18 | Outpatient (CLI) | payer MEDICARE, OTHER ==
[~2018-04-18] MED LIST changes: -CALC-1017 PO; -CARI350 PO; -CIPR-278 PO; +INSLAN SQ; -LISI-662 PO; -METR500 PO; +PREG25 PO; -PREG50 PO
== END | disposition home or self-care (01) ==
LOC: RADPV 11:28
PROVIDERS: ATTEND Internal Medicine Geriatric Medicine
DX: M47.894 Other spondylosis, thoracic region (principal); M50.823 Other cervical disc disorders at C6-C7 level; M47.896 Other spondylosis, lumbar region
CPT/HCPCS: 72040; 72070; 72100

== ENCOUNTER → 2018-07-09 | Outpatient (CLI) | payer MEDICARE, OTHER | END | disposition home or self-care (01) | LOC: RADPV 15:13 | PROVIDERS: ATTEND Internal Medicine Geriatric Medicine | DX: M47.894 Other spondylosis, thoracic region (principal); I10 Essential (primary) hypertension; E11.9 Type 2 diabetes mellitus without complications | CPT/HCPCS: 72070; 72100 ==

== ENCOUNTER 2019-04-04 09:18 | Emergency (ER) | payer MEDICARE, OTHER ==
[~2019-04-04] VITALS: Ht 162.6 cm; Wt 47.7 kg
[~2019-04-04 09:18] MED LIST changes: +CARI350 PO; -PANT40TA25 PO; -PREG25 PO
[2019-04-04] MEDS ORDERED: AMLO-511 PO (09:32)
[2019-04-04 09:44] LABS: GLUCOSE,POINT OF CARE 292 MG/DL (70-110)
[2019-04-04 10:00] VITALS: BP 143/99
[2019-04-04] MEDS ORDERED: OxyCODONE HCL/ACETAMINOPHEN 5-325 MG TABLET PO ONE (10:00)
== END 2019-04-04 10:29 | disposition home or self-care (01) ==
LOC: EMS 09:20
DX: H66.91 Otitis media, unspecified, right ear (principal); E11.9 Type 2 diabetes mellitus without complications; F32.9 Major depressive disorder, single episode, unspecified; F20.9 Schizophrenia, unspecified; F17.210 Nicotine dependence, cigarettes, uncomplicated; Z88.5 Allergy status to narcotic agent; Z88.6 Allergy status to analgesic agent; Z79.4 Long term (current) use of insulin
CPT/HCPCS: 99406

== ENCOUNTER 2019-05-19 13:26 | Emergency (ER) | payer MEDICARE, OTHER ==
[~2019-05-19] VITALS: Ht 160 cm; Wt 61.4 kg
[~2019-05-19 13:26] MED LIST changes: +AMLO5TAB9 PO; -CARI350 PO
[2019-05-19] MEDS ORDERED: TRAZ150 PO (14:17)
[2019-05-19] MEDS ORDERED: INSU100V12 SQ (14:17)
[2019-05-19] MEDS ORDERED: CARI350 PO (14:17)
[2019-05-19 14:19] LABS: GLUCOSE,POINT OF CARE 311 MG/DL (70-110)
[2019-05-19 15:34] LABS: BASOPHILS % (AUTO) 0.7 % (0.0-2.0); EOSINOPHILS % (AUTO) 0.6 % (1.0-6.0); HEMATOCRIT 29.3 % (36-46); HEMOGLOBIN 9.5 g/dL (12.0-16.0); LYMPHOCYTES # (AUTO) 1.1 K/uL (1.0-4.8); LYMPHOCYTES % (AUTO) 37.8 % (22.0-44.0); MEAN CORPUSCULAR HEMOGLOBIN 28.8 pg (26.0-34.0); MEAN CORPUSCULAR HGB CONC 32.4 G/dL (31.0-37.0); MEAN CORPUSCULAR VOLUME 89 fL (80-100); MONOCYTES # (AUTO) 0.3 K/uL (0.1-1.0); MONOCYTES % (AUTO) 9.7 % (2.0-9.0); NEUTROPHILS # (AUTO) 1.4 K/uL (1.8-7.7); NEUTROPHILS % (AUTO) 51.2 % (40.0-70.0); PLATELET COUNT (AUTO) 147 K/uL (150-450); RED CELL DISTRIBUTION WIDTH 13.8 % (11.5-14.5)
[2019-05-19 15:36] LABS: ANION GAP 6 mmol/L (8-16); CALCIUM, TOTAL 9.6 mg/dL (8.8-10.5); CARBON DIOXIDE 26 mmol/L (22-29); CHLORIDE 103 mmol/L (98-107); CREATININE 1.81 mg/dL (0.60-1.30); GLOMERULAR FILTR. RATE CALC 29 mL/min (>60); GLUCOSE,RANDOM 302 mg/dL (70-110); POTASSIUM 3.1 mmol/L (3.5-5.1); SODIUM SERUM 135 mmol/L (136-145); UREA NITROGEN, BLOOD 18 mg/dL (7-18)
[2019-05-19 15:45] LABS: ALANINE AMINOTRANSFERASE 28 U/L (12-78); ALBUMIN 3.2 g/dL (3.4-5.0); ALKALINE PHOSPHATASE 125 U/L (46-116); ASPARTATE AMINOTRANSFERASE 25 U/L (15-37); BILIRUBIN,TOTAL 0.3 mg/dL (0.1-1.0); TOTAL PROTEIN, SERUM 7.3 g/dL (6.4-8.2)
[2019-05-19 15:50] LABS: SALICYLATE < 2.8 mg/dL (2.8-20.0)
[2019-05-19 16:02] LABS: ACETAMINOPHEN < 2 mcg/mL (10-30)
[2019-05-19 16:29] VITALS: BP 151/85
== END 2019-05-19 16:45 | disposition home or self-care (01) ==
LOC: EMS 13:32
DX: F32.9 Major depressive disorder, single episode, unspecified (principal); E11.9 Type 2 diabetes mellitus without complications; F20.9 Schizophrenia, unspecified; F17.210 Nicotine dependence, cigarettes, uncomplicated; Z90.49 Acquired absence of other specified parts of digestive tract; Z90.710 Acquired absence of both cervix and uterus; Z88.6 Allergy status to analgesic agent; Z88.5 Allergy status to narcotic agent; Z79.4 Long term (current) use of insulin
CPT/HCPCS: 36415; 80053; 82962; 85025; 99284; 99406; G0480; G0481

== ENCOUNTER 2019-08-25 11:16 | Emergency (ER) | payer MEDICARE, OTHER ==
[~2019-08-25] VITALS: Ht 162.6 cm; Wt 54.5 kg
[~2019-08-25 11:16] MED LIST changes: +CARI350T26 PO; +INSU100V12 SQ; +TRAZ150 PO
[2019-08-25 11:31] LABS: GLUCOSE,POINT OF CARE 134 MG/DL (70-110)
[2019-08-25] MEDS ORDERED: METOCLOPRAMIDE HCL 5 MG/ML 2 ML VIAL IVP ONE (12:00)
[2019-08-25] MEDS ORDERED: DICYCLOMINE HCL 20 MG TABLET PO ONE (12:00)
[2019-08-25 12:49] LABS: BASOPHILS % (AUTO) 0.8 % (0.0-2.0); EOSINOPHILS % (AUTO) 0.8 % (1.0-6.0); HEMOGLOBIN 10.1 g/dL (12.0-16.0); LYMPHOCYTES # (AUTO) 1.8 K/uL (1.0-4.8); LYMPHOCYTES % (AUTO) 48.9 % (22.0-44.0); MEAN CORPUSCULAR HEMOGLOBIN 28.3 pg (26.0-34.0); MEAN CORPUSCULAR HGB CONC 32.6 G/dL (31.0-37.0); MEAN CORPUSCULAR VOLUME 87 fL (80-100); MONOCYTES # (AUTO) 0.3 K/uL (0.1-1.0); MONOCYTES % (AUTO) 9.6 % (2.0-9.0); NEUTROPHILS # (AUTO) 1.4 K/uL (1.8-7.7); NEUTROPHILS % (AUTO) 39.9 % (40.0-70.0); PLATELET COUNT (AUTO) 201 K/uL (150-450); RED BLOOD CELL COUNT(AUTO) 3.57 MIL/uL (4.00-5.20); RED CELL DISTRIBUTION WIDTH 14.7 % (11.5-14.5)
[2019-08-25 12:50] LABS: CALCIUM, TOTAL 9.5 mg/dL (8.8-10.5); CREATININE 1.84 mg/dL (0.60-1.30); POTASSIUM 4.6 mmol/L (3.5-5.1)
[2019-08-25] MEDS ORDERED: SODIUM CHLORIDE 0.9% 0 ML ONE (12:55)
[2019-08-25 12:56] LABS: ALBUMIN 3.3 g/dL (3.4-5.0); BILIRUBIN,TOTAL 0.5 mg/dL (0.1-1.0); TOTAL PROTEIN, SERUM 7.4 g/dL (6.4-8.2)
[2019-08-25] MEDS ORDERED: IOVERSOL 320 MG/ML 100 ML VIAL ONE (12:56)
[2019-08-25] MEDS ORDERED: CIPROFLOXACIN HCL 500 MG PO ONE (13:45)
[2019-08-25] MEDS ORDERED: MetroNIDAZOLE 250 MG TABLET PO ONE (13:45)
[2019-08-25] MEDS ORDERED: CIPROFLOXACIN HCL 250 MG TABLET PO ONE (14:00)
[2019-08-25 14:06] VITALS: BP 124/74
== END 2019-08-25 14:12 | disposition home or self-care (01) ==
LOC: EMS 11:17
DX: K52.9 Noninfective gastroenteritis and colitis, unspecified (principal); E11.22 Type 2 diabetes mellitus with diabetic chronic kidney disease; N18.9 Chronic kidney disease, unspecified; F32.9 Major depressive disorder, single episode, unspecified; F20.9 Schizophrenia, unspecified; F17.210 Nicotine dependence, cigarettes, uncomplicated; Z90.710 Acquired absence of both cervix and uterus; Z90.49 Acquired absence of other specified parts of digestive tract; Z88.6 Allergy status to analgesic agent; Z88.5 Allergy status to narcotic agent; Z88.8 Allergy status to other drugs, medicaments and biological substances; Z79.4 Long term (current) use of insulin
CPT/HCPCS: 36415; 74176; 80053; 82962; 83690; 84484; 85025; 93005; 96374; 99284; J2765; J7050

== ENCOUNTER 2019-08-28 10:42 | Inpatient (IN) | payer MEDICARE, OTHER ==
[~2019-08-28] VITALS: Ht 165.1 cm; Wt 56.8 kg
[2019-08-28] MEDS ORDERED: LISI-660 PO (10:58)
[2019-08-28] MEDS ORDERED: CIPR-278 PO (10:58)
[2019-08-28] MEDS ORDERED: METR500 PO (10:58)
[2019-08-28] MEDS ORDERED: SODIUM CHLORIDE 0.9% 1,000 ML IV ONE (11:15)
[2019-08-28] MEDS ORDERED: ONDANSETRON HCL 4 MG/2 ML VIAL IVP ONE (11:15)
[2019-08-28] MEDS ORDERED: FAMOTIDINE 10 MG/ML 2 ML VIAL IVP ONE (11:15)
[2019-08-28] MEDS ORDERED: ACETAMINOPHEN 1000 MG/ISO-OSM 100 ML IV ONE (11:15)
[2019-08-28 11:16] LABS: GLUCOSE,POINT OF CARE 116 MG/DL (70-110)
[2019-08-28] MEDS ORDERED: CIPROFLOXACIN 400 MG/D5% WATER 200 ML IV ONE (11:30)
[2019-08-28] MEDS ORDERED: MetroNIDAZOLE 500 MG/NACL 100 ML IV ONE (11:30)
[2019-08-28 11:40] LABS: BASOPHILS % (AUTO) 1.3 % (0.0-2.0); EOSINOPHILS % (AUTO) 1.4 % (1.0-6.0); HEMATOCRIT 30.1 % (36-46); HEMOGLOBIN 9.9 g/dL (12.0-16.0); LYMPHOCYTES # (AUTO) 0.9 K/uL (1.0-4.8); LYMPHOCYTES % (AUTO) 38.9 % (22.0-44.0); MEAN CORPUSCULAR HEMOGLOBIN 28.6 pg (26.0-34.0); MEAN CORPUSCULAR HGB CONC 32.7 G/dL (31.0-37.0); MEAN CORPUSCULAR VOLUME 87 fL (80-100); MONOCYTES # (AUTO) 0.3 K/uL (0.1-1.0); MONOCYTES % (AUTO) 15.2 % (2.0-9.0); NEUTROPHILS % (AUTO) 43.2 % (40.0-70.0); PLATELET COUNT (AUTO) 173 K/uL (150-450); RED BLOOD CELL COUNT(AUTO) 3.44 MIL/uL (4.00-5.20)
[2019-08-28 11:50] LABS: ANION GAP 11 mmol/L (8-16); CALCIUM, TOTAL 9.4 mg/dL (8.8-10.5); CARBON DIOXIDE 26 mmol/L (22-29); CHLORIDE 104 mmol/L (98-107); CREATININE 3.18 mg/dL (0.60-1.30); GLOMERULAR FILTR. RATE CALC 15 mL/min (>60); GLUCOSE,RANDOM 117 mg/dL (70-110); POTASSIUM 3.8 mmol/L (3.5-5.1); SODIUM SERUM 141 mmol/L (136-145); UREA NITROGEN, BLOOD 29 mg/dL (7-18)
[2019-08-28 11:54] LABS: INR 1.1 (0.9-1.1); PROTHROMBIN TIME 10.7 SEC (9.4-11.6)
[2019-08-28 11:56] LABS: ALANINE AMINOTRANSFERASE 25 U/L (12-78); ALBUMIN 3.9 g/dL (3.4-5.0); ALKALINE PHOSPHATASE 87 U/L (46-116); ASPARTATE AMINOTRANSFERASE 24 U/L (15-37); BILIRUBIN,TOTAL 0.5 mg/dL (0.1-1.0)
[2019-08-28 12:04] LABS: LIPASE 4016 U/L (73-393)
[2019-08-28 12:11] LABS: APPEARANCE,URINE CLEAR (CLEAR); BILIRUBIN,URINE NEGATIVE (NEGATIVE); GLUCOSE, URINE (UA) NEGATIVE (NEGATIVE); KETONES,URINE NEGATIVE (NEGATIVE); LEUKOCYTE ESTERASE ,URINE TRACE (NEGATIVE); NITRATE,URINE NEGATIVE (NEGATIVE); OCCULT BLOOD,URINE NEGATIVE (NEGATIVE); PROTEIN,URINE NEGATIVE (NEGATIVE); UROBILINOGEN,URINE 0.2 mg/dL (<=1.0)
[2019-08-28] MEDS ORDERED: MORPHINE SULFATE 4 MG/ML SYRINGE IVP ONE (12:15)
[2019-08-28 12:23] LABS: AMPHET/METH SCREEN,URINE NEGATIVE (NEGATIVE); BARBITURATE SCREEN, URINE NEGATIVE (NEGATIVE); BENZODIAZEPINES SCREEN,URINE NEGATIVE (NEGATIVE); CANNABINOID SCREEN,URINE POSITIVE (NEGATIVE); COCAINE SCREEN,URINE NEGATIVE (NEGATIVE); METHADONE SCREEN, URINE NEGATIVE (NEGATIVE); OPIATE SCREEN,URINE NEGATIVE (NEGATIVE)
[2019-08-28 12:26] LABS: PHENCYCLIDINE SCREEN,URINE NEGATIVE (NEGATIVE)
[2019-08-28 12:37] LABS: BACTERIA,URINE None Seen /HPF (None Seen); RBC,URINE None Seen /HPF (0-2); SQUAMOUS EPITHELIAL CELL,UR Few /LPF (None Seen); WBC,URINE 0-2 /HPF (0-5)
[2019-08-28 12:38] LABS: CALCIUM OXALATE CRYSTALS,UR Rare /LPF (None Seen)
[2019-08-28] MEDS ORDERED: 0.9% SODIUM CHLORIDE 10 ML SYRINGE IVP PRN (13:00)
[2019-08-28] MEDS ORDERED: ACETAMINOPHEN 325 MG TABLET PO PRN (13:00)
[2019-08-28] MEDS ORDERED: BISACODYL 10 MG RECTAL RECTAL SUPPOSITORY PR PRN (13:30)
[2019-08-28] MEDS ORDERED: MAGNESIUM HYDROXIDE SUSPENSION 30 ML UDCUP PO PRN (13:30)
[2019-08-28] MEDS ORDERED: DEXTROSE 50%-WATER 25 GM/50 ML SYRINGE IVP PRN (13:30)
[2019-08-28] MEDS ORDERED: IPRATROPIUM BROMIDE 0.5 MG/2.5 ML NEB SOLUTION NEB PRN (13:30)
[2019-08-28] MEDS ORDERED: ZOLPIDEM TARTRATE 5 MG TABLET PO PRN (13:30)
[2019-08-28] MEDS ORDERED: ALBUTEROL SULFATE 2.5 MG/0.5 ML NEB SOLUTION NEB PRN (13:30)
[2019-08-28] MEDS ORDERED: LORazepam 2 MG/ML VIAL IVP PRN (13:45)
[2019-08-28] MEDS: SODIUM CHLORIDE 0.45% 1,000 ML IV SCH (13:55)
[2019-08-28] MEDS ORDERED: METOCLOPRAMIDE HCL 5 MG/ML 2 ML VIAL IVP ONE (14:30)
[2019-08-28] MEDS: HYDROmorphone 2 MG/ML SYRINGE IVP PRN ×2 (14:45→21:02)
[2019-08-28 16:34] VITALS: BP 138/81
[2019-08-28 18:37] LABS: GLUCOMETER DEV NAME(LOC) 6N.2; GLUCOSE,POINT OF CARE 111 MG/DL (70-110)
[2019-08-28 20:25] VITALS: BP 105/63
[2019-08-28] MEDS: DULoxetine HCL 60 MG CAPSULE PO SCH (20:56)
[2019-08-28] MEDS: HEPARIN SODIUM,PORCINE 5,000 UNITS/ML VIAL SQ SCH (20:56)
[2019-08-28] MEDS: MetroNIDAZOLE 500 MG/NACL 100 ML IV SCH (20:57)
[2019-08-28] MEDS ORDERED: INSULIN GLARGINE,HUM.REC.ANLOG 100 UNITS/ML SQ SCH (21:00)
[2019-08-28] MEDS: ONDANSETRON HCL 4 MG/2 ML VIAL IVP PRN (21:04)
[2019-08-28] MEDS: CIPROFLOXACIN 200 MG/D5% WATER 100 ML IV SCH (23:46)
[2019-08-29] MEDS ORDERED: CIPROFLOXACIN 400 MG/D5% WATER 200 ML IV SCH
[2019-08-29 00:04] VITALS: BP 93/57
[2019-08-29 01:55] LABS: GLUCOMETER DEV NAME(LOC) 6N.2; GLUCOSE,POINT OF CARE 124 MG/DL (70-110)
[2019-08-29] MEDS: MetroNIDAZOLE 500 MG/NACL 100 ML IV SCH ×3 (05:20→20:02)
[2019-08-29 05:43] VITALS: BP 104/67
[2019-08-29] MEDS: ONDANSETRON HCL 4 MG/2 ML VIAL IVP PRN ×2 (05:58→16:47)
[2019-08-29] MEDS: HYDROmorphone 2 MG/ML SYRINGE IVP PRN ×3 (05:59→17:45)
[2019-08-29 06:31] LABS: GLUCOMETER DEV NAME(LOC) 4E.2; GLUCOSE,POINT OF CARE 96 MG/DL (70-110)
[2019-08-29 07:48] LABS: BASOPHILS % (AUTO) 0.9 % (0.0-2.0); EOSINOPHILS % (AUTO) 1.1 % (1.0-6.0); HEMATOCRIT 25.8 % (36-46); HEMOGLOBIN 8.5 g/dL (12.0-16.0); LYMPHOCYTES # (AUTO) 1.1 K/uL (1.0-4.8); MEAN CORPUSCULAR HEMOGLOBIN 29.2 pg (26.0-34.0); MEAN CORPUSCULAR HGB CONC 32.9 G/dL (31.0-37.0); MEAN CORPUSCULAR VOLUME 89 fL (80-100); MONOCYTES # (AUTO) 0.3 K/uL (0.1-1.0); MONOCYTES % (AUTO) 12.4 % (2.0-9.0); NEUTROPHILS # (AUTO) 1.2 K/uL (1.8-7.7); NEUTROPHILS % (AUTO) 45.6 % (40.0-70.0); PLATELET COUNT (AUTO) 144 K/uL (150-450); RED BLOOD CELL COUNT(AUTO) 2.91 MIL/uL (4.00-5.20); RED CELL DISTRIBUTION WIDTH 15.3 % (11.5-14.5)
[2019-08-29 07:55] LABS: HEMOGLOBIN A1C 9.7 % (4.5-6.2)
[2019-08-29 07:59] VITALS: BP 94/53
[2019-08-29] MEDS: DULoxetine HCL 60 MG CAPSULE PO SCH ×2 (08:32→20:02)
[2019-08-29] MEDS: HEPARIN SODIUM,PORCINE 5,000 UNITS/ML VIAL SQ SCH ×2 (08:32→20:10)
[2019-08-29] MEDS: FAMOTIDINE 10 MG/ML 2 ML VIAL IVP SCH (08:32)
[2019-08-29 08:34] LABS: ALBUMIN 3.2 g/dL (3.4-5.0); BILIRUBIN,TOTAL 0.4 mg/dL (0.1-1.0); CALCIUM, TOTAL 8.8 mg/dL (8.8-10.5); CHOL/HDL RATIO 1.9 (3.9-5.7); CREATININE 2.74 mg/dL (0.60-1.30); FREE T4 (FREE THYROXINE) 1.25 ng/dL (0.76-1.46); MAGNESIUM 1.4 mg/dL (1.80-2.40); POTASSIUM 4.1 mmol/L (3.5-5.1); THYROID STIMULATING HORMONE 1.14 uIU/mL (0.36-3.74); TOTAL PROTEIN, SERUM 6.4 g/dL (6.4-8.2)
[2019-08-29] MEDS: CIPROFLOXACIN 200 MG/D5% WATER 100 ML IV SCH ×2 (11:39→23:21)
[2019-08-29 11:53] VITALS: BP 105/67
[2019-08-29] MEDS ORDERED: MAGNESIUM SULFATE 2 GM/WATER 50 ML IV ONE (12:15)
[2019-08-29 14:51] LABS: GLUCOMETER DEV NAME(LOC) 6N.2; GLUCOSE,POINT OF CARE 100 MG/DL (70-110)
[2019-08-29 15:35] VITALS: BP 109/56
[2019-08-29] MEDS ORDERED: PEG 3350/NA SULF,BICARB,CL/KCL 4000 ML SOLUTION PO ONE (16:00)
[2019-08-29 17:07] LABS: GLUCOMETER DEV NAME(LOC) 6N.2; GLUCOSE,POINT OF CARE 104 MG/DL (70-110)
[2019-08-29] MEDS: SODIUM CHLORIDE 0.45% 1,000 ML IV SCH (20:00)
[2019-08-29] MEDS: BREXPIPRAZOLE 1 MG TABLET PO SCH (20:02)
[2019-08-29 20:04] VITALS: BP 108/65
[2019-08-29 20:56] LABS: GLUCOMETER DEV NAME(LOC) 6N.2; GLUCOSE,POINT OF CARE 136 MG/DL (70-110)
[2019-08-30] VITALS (7 sets, daily range): BP systolic 103–148; BP diastolic 68–84
[2019-08-30] MEDS: HYDROmorphone 2 MG/ML SYRINGE IVP PRN ×5 (02:21→20:19)
[2019-08-30] MEDS: ONDANSETRON HCL 4 MG/2 ML VIAL IVP PRN ×2 (02:25→11:27)
[2019-08-30] MEDS: SODIUM CHLORIDE 0.45% 1,000 ML IV SCH (03:17)
[2019-08-30] MEDS: MetroNIDAZOLE 500 MG/NACL 100 ML IV SCH ×2 (05:04→12:55)
[2019-08-30 06:31] LABS: GLUCOMETER DEV NAME(LOC) 4E.2; GLUCOSE,POINT OF CARE 128 MG/DL (70-110)
[2019-08-30 07:23] LABS: BASOPHILS % (AUTO) 0.6 % (0.0-2.0); EOSINOPHILS % (AUTO) 0.7 % (1.0-6.0); HEMATOCRIT 25.2 % (36-46); HEMOGLOBIN 8.5 g/dL (12.0-16.0); LYMPHOCYTES % (AUTO) 36.2 % (22.0-44.0); MEAN CORPUSCULAR HEMOGLOBIN 29.9 pg (26.0-34.0); MEAN CORPUSCULAR VOLUME 88 fL (80-100); MONOCYTES # (AUTO) 0.3 K/uL (0.1-1.0); MONOCYTES % (AUTO) 9.8 % (2.0-9.0); NEUTROPHILS # (AUTO) 1.4 K/uL (1.8-7.7); NEUTROPHILS % (AUTO) 52.7 % (40.0-70.0); PLATELET COUNT (AUTO) 136 K/uL (150-450); RED BLOOD CELL COUNT(AUTO) 2.86 MIL/uL (4.00-5.20); RED CELL DISTRIBUTION WIDTH 15.2 % (11.5-14.5)
[2019-08-30 07:29] LABS: CREATININE 2.58 mg/dL (0.60-1.30); MAGNESIUM 1.8 mg/dL (1.80-2.40); POTASSIUM 3.7 mmol/L (3.5-5.1)
[2019-08-30] MEDS: FAMOTIDINE 10 MG/ML 2 ML VIAL IVP SCH (08:26)
[2019-08-30] MEDS: HEPARIN SODIUM,PORCINE 5,000 UNITS/ML VIAL SQ SCH ×2 (08:27→20:10)
[2019-08-30] MEDS ORDERED: SODIUM CHLORIDE 0.9% 1,000 ML IV ONE (09:16)
[2019-08-30] MEDS ORDERED: MIDAZOLAM HCL 5 MG/ML VIAL ONE (10:00)
[2019-08-30] MEDS ORDERED: FentaNYL CITRATE-PF 100 MCG/2 ML VIAL ONE (10:00)
[2019-08-30] MEDS: CIPROFLOXACIN 200 MG/D5% WATER 100 ML IV SCH (11:20)
[2019-08-30] MEDS: DULoxetine HCL 60 MG CAPSULE PO SCH ×2 (11:20→20:10)
[2019-08-30 11:51] LABS: GLUCOMETER DEV NAME(LOC) 6N.2; GLUCOSE,POINT OF CARE 94 MG/DL (70-110)
[2019-08-30] MEDS: BREXPIPRAZOLE 1 MG TABLET PO SCH (20:10)
[2019-08-30] MEDS: TraZODone HCL 150 MG TABLET PO PRN (20:10)
[2019-08-30 21:36] LABS: GLUCOMETER DEV NAME(LOC) 6N.2; GLUCOSE,POINT OF CARE 133 MG/DL (70-110)
[2019-08-31] MEDS ORDERED: LIDOCAINE/PF 2% 5 ML VIAL IM ONE (01:02)
[2019-08-31] MEDS ORDERED: PROPOFOL 1% 20 ML VIAL IVP ONE (01:02)
[2019-08-31 04:00] VITALS: BP 109/55
[2019-08-31 05:53] LABS: BASOPHILS % (AUTO) 0.7 % (0.0-2.0); EOSINOPHILS % (AUTO) 2.2 % (1.0-6.0); HEMATOCRIT 22.1 % (36-46); HEMOGLOBIN 7.3 g/dL (12.0-16.0); LYMPHOCYTES # (AUTO) 1.4 K/uL (1.0-4.8); LYMPHOCYTES % (AUTO) 51.2 % (22.0-44.0); MEAN CORPUSCULAR HEMOGLOBIN 28.6 pg (26.0-34.0); MEAN CORPUSCULAR HGB CONC 32.9 G/dL (31.0-37.0); MEAN CORPUSCULAR VOLUME 87 fL (80-100); MONOCYTES # (AUTO) 0.4 K/uL (0.1-1.0); NEUTROPHILS # (AUTO) 0.8 K/uL (1.8-7.7); NEUTROPHILS % (AUTO) 29.9 % (40.0-70.0); PLATELET COUNT (AUTO) 118 K/uL (150-450); RED BLOOD CELL COUNT(AUTO) 2.54 MIL/uL (4.00-5.20); RED CELL DISTRIBUTION WIDTH 14.9 % (11.5-14.5)
[2019-08-31 06:12] LABS: CALCIUM, TOTAL 8.3 mg/dL (8.8-10.5); CREATININE 2.18 mg/dL (0.60-1.30); POTASSIUM 3.9 mmol/L (3.5-5.1)
[2019-08-31 07:36] VITALS: BP 109/55
[2019-08-31 07:41] LABS: GLUCOMETER DEV NAME(LOC) 4E.2; GLUCOSE,POINT OF CARE 101 MG/DL (70-110)
[2019-08-31] MEDS: DULoxetine HCL 60 MG CAPSULE PO SCH ×2 (08:11→20:38)
[2019-08-31] MEDS: HEPARIN SODIUM,PORCINE 5,000 UNITS/ML VIAL SQ SCH ×2 (08:12→20:39)
[2019-08-31] MEDS: FAMOTIDINE 10 MG/ML 2 ML VIAL IVP SCH (08:12)
[2019-08-31 11:30] VITALS: BP 129/71
[2019-08-31] MEDS: ONDANSETRON HCL 4 MG/2 ML VIAL IVP PRN (11:41)
[2019-08-31] MEDS: HYDROmorphone 2 MG/ML SYRINGE IVP PRN ×2 (11:41→17:14)
[2019-08-31 13:06] LABS: HIV 1-2 SCREEN 4TH GEN W/RFLX Non Reactive (Non Reactive)
[2019-08-31 16:11] VITALS: BP 142/73
[2019-08-31 20:16] VITALS: BP 121/74
[2019-08-31] MEDS: BREXPIPRAZOLE 1 MG TABLET PO SCH (20:38)
[2019-08-31] MEDS: TraZODone HCL 150 MG TABLET PO PRN (20:47)
[2019-08-31 23:02] LABS: GLUCOMETER DEV NAME(LOC) 4E.2; GLUCOSE,POINT OF CARE 133 MG/DL (70-110)
[2019-08-31 23:02] LABS: GLUCOMETER DEV NAME(LOC) 6N.2; GLUCOSE,POINT OF CARE 128 MG/DL (70-110)
[2019-08-31 23:02] LABS: GLUCOMETER DEV NAME(LOC) 6N.2; GLUCOSE,POINT OF CARE 112 MG/DL (70-110)
[2019-08-31 23:02] LABS: GLUCOMETER DEV NAME(LOC) 4E.2; GLUCOSE,POINT OF CARE 102 MG/DL (70-110)
[2019-08-31 23:58] VITALS: BP 124/73
[2019-09-01] MEDS: ONDANSETRON HCL 4 MG/2 ML VIAL IVP PRN ×2 (02:59→15:55)
[2019-09-01] MEDS: HYDROmorphone 2 MG/ML SYRINGE IVP PRN ×3 (03:00→17:37)
[2019-09-01 03:02] VITALS: BP 147/77
[2019-09-01 06:56] LABS: BASOPHILS % (AUTO) 0.6 % (0.0-2.0); HEMATOCRIT 26.7 % (36-46); HEMOGLOBIN 8.8 g/dL (12.0-16.0); LYMPHOCYTES # (AUTO) 1.1 K/uL (1.0-4.8); LYMPHOCYTES % (AUTO) 30.4 % (22.0-44.0); MEAN CORPUSCULAR HEMOGLOBIN 28.8 pg (26.0-34.0); MEAN CORPUSCULAR HGB CONC 33.1 G/dL (31.0-37.0); MEAN CORPUSCULAR VOLUME 87 fL (80-100); MONOCYTES # (AUTO) 0.5 K/uL (0.1-1.0); MONOCYTES % (AUTO) 12.2 % (2.0-9.0); NEUTROPHILS # (AUTO) 2.1 K/uL (1.8-7.7); NEUTROPHILS % (AUTO) 55.8 % (40.0-70.0); PLATELET COUNT (AUTO) 131 K/uL (150-450); RED BLOOD CELL COUNT(AUTO) 3.06 MIL/uL (4.00-5.20); RED CELL DISTRIBUTION WIDTH 14.9 % (11.5-14.5)
[2019-09-01 07:10] VITALS: BP 134/77
[2019-09-01 07:22] LABS: POTASSIUM 3.6 mmol/L (3.5-5.1)
[2019-09-01 07:23] LABS: CALCIUM, TOTAL 8.9 mg/dL (8.8-10.5)
[2019-09-01 07:32] LABS: GLUCOMETER DEV NAME(LOC) 4E.2; GLUCOSE,POINT OF CARE 115 MG/DL (70-110)
[2019-09-01] MEDS: HEPARIN SODIUM,PORCINE 5,000 UNITS/ML VIAL SQ SCH ×2 (09:21→20:36)
[2019-09-01] MEDS: DULoxetine HCL 60 MG CAPSULE PO SCH ×2 (09:22→20:36)
[2019-09-01] MEDS: FAMOTIDINE 10 MG/ML 2 ML VIAL IVP SCH (09:22)
[2019-09-01] MEDS: SODIUM CHLORIDE 0.45% 1,000 ML IV SCH (11:35)
[2019-09-01 12:10] VITALS: BP 139/89
[2019-09-01 16:59] VITALS: BP 131/88
[2019-09-01 19:22] LABS: GLUCOMETER DEV NAME(LOC) 6N.2; GLUCOSE,POINT OF CARE 114 MG/DL (70-110)
[2019-09-01 19:47] VITALS: BP 138/79
[2019-09-01] MEDS: BREXPIPRAZOLE 1 MG TABLET PO SCH (20:36)
[2019-09-01] MEDS: TraZODone HCL 150 MG TABLET PO PRN (20:36)
[2019-09-01 21:07] LABS: GLUCOMETER DEV NAME(LOC) 4E.2; GLUCOSE,POINT OF CARE 130 MG/DL (70-110)
[2019-09-01 21:07] LABS: GLUCOMETER DEV NAME(LOC) 4E.2; GLUCOSE,POINT OF CARE 95 MG/DL (70-110)
[2019-09-01 23:57] VITALS: BP 127/80
[2019-09-02] MEDS: HYDROmorphone 2 MG/ML SYRINGE IVP PRN ×4 (00:53→20:56)
[2019-09-02] MEDS: SODIUM CHLORIDE 0.45% 1,000 ML IV SCH ×2 (00:53→13:35)
[2019-09-02 04:00] VITALS: BP 142/81
[2019-09-02 06:16] LABS: GLUCOMETER DEV NAME(LOC) 6N.2; GLUCOSE,POINT OF CARE 117 MG/DL (70-110)
[2019-09-02 07:24] VITALS: BP 155/79
[2019-09-02] MEDS: HEPARIN SODIUM,PORCINE 5,000 UNITS/ML VIAL SQ SCH ×2 (07:57→20:14)
[2019-09-02] MEDS: FAMOTIDINE 10 MG/ML 2 ML VIAL IVP SCH (07:57)
[2019-09-02] MEDS: DULoxetine HCL 60 MG CAPSULE PO SCH ×2 (07:57→20:13)
[2019-09-02 08:03] LABS: AMYLASE 116 U/L (25-115); LIPASE 885 U/L (73-393)
[2019-09-02] MEDS: ONDANSETRON HCL 4 MG/2 ML VIAL IVP PRN ×2 (08:04→13:36)
[2019-09-02 11:24] VITALS: BP 109/68
[2019-09-02 12:23] LABS: GLUCOMETER DEV NAME(LOC) 6N.2; GLUCOSE,POINT OF CARE 120 MG/DL (70-110)
[2019-09-02] MEDS ORDERED: HYDROmorphone 2 MG/ML SYRINGE IVP PRN (13:30)
[2019-09-02 15:28] VITALS: BP 156/86
[2019-09-02] MEDS ORDERED: PREGABALIN 50 MG CAPSULE PO PRN (17:15)
[2019-09-02] MEDS ORDERED: PREGABALIN 25 MG CAPSULE PO ONE ×2 (17:15→18:00)
[2019-09-02] MEDS ORDERED: PREGABALIN 25 MG CAPSULE PO PRN (17:15)
[2019-09-02 18:16] LABS: GLUCOMETER DEV NAME(LOC) 6N.2; GLUCOSE,POINT OF CARE 91 MG/DL (70-110)
[2019-09-02 19:52] VITALS: BP 148/81
[2019-09-02] MEDS: PREGABALIN 25 MG CAPSULE PO SCH (20:13)
[2019-09-02 20:36] LABS: GLUCOMETER DEV NAME(LOC) 4E.2; GLUCOSE,POINT OF CARE 114 MG/DL (70-110)
[2019-09-02] MEDS: TraZODone HCL 150 MG TABLET PO PRN (23:14)
[2019-09-03 00:08] VITALS: BP 112/71
[2019-09-03] MEDS: SODIUM CHLORIDE 0.45% 1,000 ML IV SCH ×2 (00:55→13:26)
[2019-09-03] MEDS: HYDROmorphone 2 MG/ML SYRINGE IVP PRN ×6 (00:55→22:37)
[2019-09-03 04:26] VITALS: BP 138/71
[2019-09-03 05:26] LABS: GLUCOMETER DEV NAME(LOC) 4E.2; GLUCOSE,POINT OF CARE 119 MG/DL (70-110)
[2019-09-03 05:41] LABS: EOSINOPHILS % (AUTO) 2.1 % (1.0-6.0); HEMATOCRIT 23.9 % (36-46); LYMPHOCYTES # (AUTO) 2.3 K/uL (1.0-4.8); LYMPHOCYTES % (AUTO) 56.3 % (22.0-44.0); MEAN CORPUSCULAR HEMOGLOBIN 28.9 pg (26.0-34.0); MEAN CORPUSCULAR HGB CONC 33.3 G/dL (31.0-37.0); MEAN CORPUSCULAR VOLUME 87 fL (80-100); MONOCYTES # (AUTO) 0.4 K/uL (0.1-1.0); MONOCYTES % (AUTO) 10.6 % (2.0-9.0); NEUTROPHILS # (AUTO) 1.2 K/uL (1.8-7.7); PLATELET COUNT (AUTO) 136 K/uL (150-450); RED BLOOD CELL COUNT(AUTO) 2.75 MIL/uL (4.00-5.20); RED CELL DISTRIBUTION WIDTH 14.7 % (11.5-14.5)
[2019-09-03 06:01] LABS: ALBUMIN 2.8 g/dL (3.4-5.0); BILIRUBIN,TOTAL 0.3 mg/dL (0.1-1.0); CALCIUM, TOTAL 8.2 mg/dL (8.8-10.5); CREATININE 1.88 mg/dL (0.60-1.30); POTASSIUM 3.5 mmol/L (3.5-5.1); TOTAL PROTEIN, SERUM 5.8 g/dL (6.4-8.2)
[2019-09-03 07:07] VITALS: BP 128/77
[2019-09-03] MEDS: LURASIDONE HCL 40 MG TABLET PO SCH (08:00)
[2019-09-03 08:17] LABS: CHOL/HDL RATIO 2.7 (3.9-5.7)
[2019-09-03] MEDS: HEPARIN SODIUM,PORCINE 5,000 UNITS/ML VIAL SQ SCH ×2 (09:28→20:34)
[2019-09-03] MEDS: FAMOTIDINE 10 MG/ML 2 ML VIAL IVP SCH (09:28)
[2019-09-03] MEDS: DULoxetine HCL 60 MG CAPSULE PO SCH ×2 (09:29→20:34)
[2019-09-03] MEDS: PREGABALIN 25 MG CAPSULE PO SCH ×3 (09:29→20:35)
[2019-09-03] MEDS: INSULIN LISPRO 100 UNITS/ML SQ PRN ×2 (11:39→17:22)
[2019-09-03 11:58] VITALS: BP 134/75
[2019-09-03] MEDS: ONDANSETRON HCL 4 MG/2 ML VIAL IVP PRN (13:26)
[2019-09-03 16:12] VITALS: BP 158/83
[2019-09-03 20:18] VITALS: BP 126/85
[2019-09-03] MEDS: TraZODone HCL 150 MG TABLET PO PRN (21:08)
[2019-09-03 21:16] LABS: GLUCOMETER DEV NAME(LOC) 6N.2; GLUCOSE,POINT OF CARE 101 MG/DL (70-110)
[2019-09-03 21:16] LABS: GLUCOMETER DEV NAME(LOC) 6N.2; GLUCOSE,POINT OF CARE 89 MG/DL (70-110)
[2019-09-03 21:16] LABS: GLUCOMETER DEV NAME(LOC) 6N.2; GLUCOSE,POINT OF CARE 164 MG/DL (70-110)
[2019-09-04 00:24] VITALS: BP 105/63
[2019-09-04 04:41] VITALS: BP 118/52
[2019-09-04] MEDS: HYDROmorphone 2 MG/ML SYRINGE IVP PRN ×3 (05:04→14:20)
[2019-09-04 06:13] LABS: BASOPHILS % (AUTO) 0.5 % (0.0-2.0); EOSINOPHILS % (AUTO) 1.5 % (1.0-6.0); HEMATOCRIT 24.8 % (36-46); HEMOGLOBIN 8.5 g/dL (12.0-16.0); LYMPHOCYTES # (AUTO) 1.3 K/uL (1.0-4.8); LYMPHOCYTES % (AUTO) 36.9 % (22.0-44.0); MEAN CORPUSCULAR HGB CONC 34.2 G/dL (31.0-37.0); MEAN CORPUSCULAR VOLUME 88 fL (80-100); MONOCYTES # (AUTO) 0.4 K/uL (0.1-1.0); NEUTROPHILS # (AUTO) 1.7 K/uL (1.8-7.7); NEUTROPHILS % (AUTO) 49.1 % (40.0-70.0); PLATELET COUNT (AUTO) 140 K/uL (150-450); RED BLOOD CELL COUNT(AUTO) 2.82 MIL/uL (4.00-5.20); RED CELL DISTRIBUTION WIDTH 14.9 % (11.5-14.5)
[2019-09-04 06:23] LABS: CALCIUM, TOTAL 8.8 mg/dL (8.8-10.5); CREATININE 2.02 mg/dL (0.60-1.30); MAGNESIUM 1.3 mg/dL (1.80-2.40); PHOSPHORUS 3.1 mg/dL (2.5-4.9); POTASSIUM 3.6 mmol/L (3.5-5.1)
[2019-09-04 07:15] VITALS: BP 147/77
[2019-09-04] MEDS: PREGABALIN 25 MG CAPSULE PO SCH ×2 (08:11→15:50)
[2019-09-04] MEDS: DULoxetine HCL 60 MG CAPSULE PO SCH (08:11)
[2019-09-04] MEDS: LURASIDONE HCL 40 MG TABLET PO SCH (08:11)
[2019-09-04] MEDS: FAMOTIDINE 10 MG/ML 2 ML VIAL IVP SCH (08:11)
[2019-09-04] MEDS: HEPARIN SODIUM,PORCINE 5,000 UNITS/ML VIAL SQ SCH (08:12)
[2019-09-04] MEDS: SODIUM CHLORIDE 0.45% 1,000 ML IV SCH (08:12)
[2019-09-04] MEDS: ONDANSETRON HCL 4 MG/2 ML VIAL IVP PRN (09:35)
[2019-09-04] MEDS ORDERED: MAGNESIUM SULFATE 3 GM in DEXTROSE 5%-WATER 100 ML IV ONE (09:45)
[2019-09-04] MEDS ORDERED: MAGNESIUM SULFATE 2 GM/WATER 50 ML IV PRN (10:30)
[2019-09-04] MEDS ORDERED: MAGNESIUM SULFATE 4 GM/WATER 100 ML IV PRN (10:30)
[2019-09-04] MEDS ORDERED: MAGNESIUM OXIDE 400 MG TABLET PO PRN (10:30)
[2019-09-04 11:18] VITALS: BP 152/80
[2019-09-04] MEDS: INSULIN LISPRO 100 UNITS/ML SQ PRN ×2 (12:01→17:09)
[2019-09-04 12:11] LABS: GLUCOMETER DEV NAME(LOC) 6N.2; GLUCOSE,POINT OF CARE 115 MG/DL (70-110)
[2019-09-04 15:34] VITALS: BP 125/73
[2019-09-04 19:26] LABS: GLUCOMETER DEV NAME(LOC) 4E.2; GLUCOSE,POINT OF CARE 159 MG/DL (70-110)
[2019-09-04 20:46] LABS: GLUCOMETER DEV NAME(LOC) 6N.2; GLUCOSE,POINT OF CARE 207 MG/DL (70-110)
== END 2019-09-04 19:20 | disposition home or self-care (01) | DRG 682 ==
LOC: EMS 10:45 → 4E 15:22
PROVIDERS: ADMIT Internal Medicine Geriatric Medicine; ATTEND Internal Medicine Geriatric Medicine
PROC: 0DBB8ZX Excision of Ileum, Via Natural or Artificial Opening Endoscopic, Diagnostic (ICD-10-PCS; principal; 2019-08-30 10:00)
DX: N17.9 Acute kidney failure, unspecified (principal); K85.90 Acute pancreatitis without necrosis or infection, unspecified; D61.818 Other pancytopenia; F33.2 Major depressive disorder, recurrent severe without psychotic features; K50.90 Crohn's disease, unspecified, without complications; K52.9 Noninfective gastroenteritis and colitis, unspecified; N18.4 Chronic kidney disease, stage 4 (severe); E11.65 Type 2 diabetes mellitus with hyperglycemia; F41.9 Anxiety disorder, unspecified; D72.819 Decreased white blood cell count, unspecified; D64.9 Anemia, unspecified; E86.0 Dehydration; E11.22 Type 2 diabetes mellitus with diabetic chronic kidney disease; E11.42 Type 2 diabetes mellitus with diabetic polyneuropathy; E83.42 Hypomagnesemia; F12.90 Cannabis use, unspecified, uncomplicated; F25.9 Schizoaffective disorder, unspecified; G89.4 Chronic pain syndrome; I12.9 Hypertensive chronic kidney disease with stage 1 through stage 4 chronic kidney disease, or unspecified chronic kidney disease; Z79.899 Other long term (current) drug therapy; Z81.8 Family history of other mental and behavioral disorders; Z82.49 Family history of ischemic heart disease and other diseases of the circulatory system; Z83.3 Family history of diabetes mellitus; Z90.49 Acquired absence of other specified parts of digestive tract; Z90.710 Acquired absence of both cervix and uterus; Z88.8 Allergy status to other drugs, medicaments and biological substances; Z88.6 Allergy status to analgesic agent
CPT/HCPCS: 74176; 74181; 76705; 82784; 83036; 83516; 83605; 83735; 84100; 84145; 84439; 84443; 87045; 87389; 88305; 89055; 93005; G0378; G0480; J0131; J0744; J1170; J1644; J1815; J2250; J2270; J2405; J2704; J2765; J3010; J3475; J3490; J7030; J7060

== ENCOUNTER 2019-09-22 13:54 | Inpatient (IN) | payer MEDICARE, MEDICAID ==
[~2019-09-22] VITALS: Ht 162.6 cm; Wt 54.8 kg
[~2019-09-22 13:54] MED LIST changes: -CARI350T26 PO; -INSU100V12 SQ; +LISI-660 PO
[2019-09-22 14:08] VITALS: BP 122/71
[2019-09-22] MEDS ORDERED: ACETAMINOPHEN 1000 MG/ISO-OSM 100 ML IV ONE (15:45)
[2019-09-22] MEDS ORDERED: SODIUM CHLORIDE 0.9% 1,000 ML IV ONE (15:45)
[2019-09-22] MEDS ORDERED: ONDANSETRON HCL 4 MG/2 ML VIAL IVP ONE (15:45)
[2019-09-22 15:54] LABS: HEMATOCRIT 26.9 % (36-46); HEMOGLOBIN 8.7 g/dL (12.0-16.0); LYMPHOCYTES # (AUTO) 0.9 K/uL (1.0-4.8); LYMPHOCYTES % (AUTO) 28.9 % (22.0-44.0); MEAN CORPUSCULAR HEMOGLOBIN 28.7 pg (26.0-34.0); MEAN CORPUSCULAR HGB CONC 32.2 G/dL (31.0-37.0); MEAN CORPUSCULAR VOLUME 89 fL (80-100); MONOCYTES # (AUTO) 0.2 K/uL (0.1-1.0); MONOCYTES % (AUTO) 7.8 % (2.0-9.0); NEUTROPHILS # (AUTO) 1.9 K/uL (1.8-7.7); NEUTROPHILS % (AUTO) 61.3 % (40.0-70.0); PLATELET COUNT (AUTO) 152 K/uL (150-450); RED BLOOD CELL COUNT(AUTO) 3.02 MIL/uL (4.00-5.20)
[2019-09-22 16:03] LABS: ANION GAP 4 mmol/L (8-16); CALCIUM, TOTAL 9.4 mg/dL (8.8-10.5); CARBON DIOXIDE 31 mmol/L (22-29); CHLORIDE 101 mmol/L (98-107); CREATININE 2.18 mg/dL (0.60-1.30); GLOMERULAR FILTR. RATE CALC 23 mL/min (>60); GLUCOSE,RANDOM 198 mg/dL (70-110); POTASSIUM 5.5 mmol/L (3.5-5.1); SODIUM SERUM 136 mmol/L (136-145); UREA NITROGEN, BLOOD 36 mg/dL (7-18)
[2019-09-22 16:09] LABS: ALANINE AMINOTRANSFERASE 24 U/L (12-78); ALBUMIN 3.6 g/dL (3.4-5.0); ALKALINE PHOSPHATASE 86 U/L (46-116); ASPARTATE AMINOTRANSFERASE 24 U/L (15-37); BILIRUBIN,TOTAL 0.3 mg/dL (0.1-1.0); LIPASE 900 U/L (73-393); TOTAL PROTEIN, SERUM 7.3 g/dL (6.4-8.2)
[2019-09-22 16:23] LABS: ACETAMINOPHEN < 2 mcg/mL (10-30); SALICYLATE < 2.8 mg/dL (2.8-20.0)
[2019-09-22] MEDS ORDERED: ACETAMINOPHEN 325 MG TABLET PO PRN (18:15)
[2019-09-22] MEDS ORDERED: LOPERAMIDE HCL 2 MG CAPSULE PO PRN (18:15)
[2019-09-22] MEDS ORDERED: QUEtiapine FUMARATE 100 MG TABLET PO PRN (18:15)
[2019-09-22] MEDS ORDERED: PROMETHAZINE HCL 25 MG TABLET PO PRN (18:15)
[2019-09-22] MEDS ORDERED: MAG HYDROX/AL HYDROX/SIMETH ES 30 ML SUSPENSION UDCUP PO PRN (18:15)
[2019-09-22] MEDS ORDERED: GuaiFENesin/D-METHORPHAN [SUGAR-FREE] 200-20MG/10 ML SYRUP UDCUP PO PRN (18:15)
[2019-09-22] MEDS ORDERED: HydrOXYzine PAMOATE 50 MG CAPSULE PO PRN (18:15)
[2019-09-22] MEDS ORDERED: TUBERCULIN, PURIFIED PROTEIN DERIVATIVE 5 TU/0.1 ML SYRINGE ID ONE (18:15)
[2019-09-22 20:31] VITALS: BP 109/80
[2019-09-22] MEDS: DULoxetine HCL 60 MG CAPSULE PO SCH (20:51)
[2019-09-22] MEDS: PREGABALIN 50 MG CAPSULE PO SCH (20:51)
[2019-09-22] MEDS: THIAMINE HCL 100 MG TABLET PO SCH (20:51)
[2019-09-22] MEDS: LORazepam 2 MG TABLET PO PRN (21:16)
[2019-09-22] MEDS ORDERED: GLUCAGON,HUMAN RECOMBINANT 1 MG VIAL IM PRN (21:45)
[2019-09-22 22:45] LABS: GLUCOMETER DEV NAME(LOC) BV2X.; GLUCOSE,POINT OF CARE 142 MG/DL (70-110)
[2019-09-23 06:30] LABS: GLUCOMETER DEV NAME(LOC) BV2X.; GLUCOSE,POINT OF CARE 84 MG/DL (70-110)
[2019-09-23 06:49] VITALS: BP 110/68
[2019-09-23] MEDS: LURASIDONE HCL 40 MG TABLET PO SCH (06:59)
[2019-09-23 08:16] VITALS: BP 140/77
[2019-09-23 08:16] LABS: BASOPHILS % (AUTO) 0.9 % (0.0-2.0); EOSINOPHILS % (AUTO) 1.5 % (1.0-6.0); HEMATOCRIT 26.4 % (36-46); HEMOGLOBIN 8.5 g/dL (12.0-16.0); LYMPHOCYTES # (AUTO) 1.4 K/uL (1.0-4.8); LYMPHOCYTES % (AUTO) 54.6 % (22.0-44.0); MEAN CORPUSCULAR HEMOGLOBIN 28.8 pg (26.0-34.0); MEAN CORPUSCULAR HGB CONC 32.2 G/dL (31.0-37.0); MEAN CORPUSCULAR VOLUME 90 fL (80-100); MONOCYTES # (AUTO) 0.3 K/uL (0.1-1.0); NEUTROPHILS # (AUTO) 0.8 K/uL (1.8-7.7); PLATELET COUNT (AUTO) 146 K/uL (150-450); RED BLOOD CELL COUNT(AUTO) 2.95 MIL/uL (4.00-5.20); RED CELL DISTRIBUTION WIDTH 14.9 % (11.5-14.5)
[2019-09-23 08:36] LABS: HEMOGLOBIN A1C 7.9 % (4.5-6.2)
[2019-09-23] MEDS: MULTIVITAMINS WITH MINERALS, THERAPEUTIC TABLET PO SCH (08:54)
[2019-09-23] MEDS: DULoxetine HCL 60 MG CAPSULE PO SCH ×2 (08:54→17:00)
[2019-09-23] MEDS: LISINOPRIL 5 MG TABLET PO SCH (08:55)
[2019-09-23 08:57] LABS: ALBUMIN 3.1 g/dL (3.4-5.0); BILIRUBIN,TOTAL 0.2 mg/dL (0.1-1.0); CALCIUM, TOTAL 9.2 mg/dL (8.8-10.5); CHOL/HDL RATIO 3.1 (3.9-5.7); CREATININE 1.72 mg/dL (0.60-1.30); FREE T4 (FREE THYROXINE) 0.92 ng/dL (0.76-1.46); POTASSIUM 4.8 mmol/L (3.5-5.1); THYROID STIMULATING HORMONE 0.73 uIU/mL (0.36-3.74); TOTAL PROTEIN, SERUM 6.7 g/dL (6.4-8.2)
[2019-09-23] MEDS: PREGABALIN 50 MG CAPSULE PO SCH ×3 (09:00→17:00)
[2019-09-23] MEDS: AmLODIPine BESYLATE 10 MG TABLET PO SCH (09:05)
[2019-09-23] MEDS: FOLIC ACID 1 MG TABLET PO SCH (09:05)
[2019-09-23] MEDS: NALTREXONE HCL 50 MG TABLET PO SCH (09:05)
[2019-09-23] MEDS: LORazepam 2 MG TABLET PO PRN (09:15)
[2019-09-23] MEDS: THIAMINE HCL 100 MG TABLET PO SCH ×2 (09:15→17:00)
[2019-09-23 15:02] LABS: GLUCOMETER DEV NAME(LOC) BV2X.; GLUCOSE,POINT OF CARE 129 MG/DL (70-110)
[2019-09-23 16:38] VITALS: BP 111/75
[2019-09-23] MEDS ORDERED: CARISOPRODOL 350 MG TABLET PO PRN ×2 (19:15)
[2019-09-23] MEDS ORDERED: INSULIN GLARGINE,HUM.REC.ANLOG 100 UNITS/ML SQ SCH (21:00)
[2019-09-23 22:09] VITALS: BP 93/65
[2019-09-23] MEDS: INSULIN GLARGINE,HUM.REC.ANLOG 100 UNITS/ML SQ SCH (22:13)
[2019-09-23] MEDS: INSULIN LISPRO 100 UNITS/ML SQ PRN (22:13)
[2019-09-23 22:22] LABS: GLUCOMETER DEV NAME(LOC) BV2X.; GLUCOSE,POINT OF CARE 163 MG/DL (70-110)
[2019-09-24 00:30] VITALS: BP 111/68
[2019-09-24 06:13] LABS: GLUCOMETER DEV NAME(LOC) BV2X.; GLUCOSE,POINT OF CARE 101 MG/DL (70-110)
[2019-09-24] MEDS: LURASIDONE HCL 40 MG TABLET PO SCH (06:45)
[2019-09-24 08:31] VITALS: BP 121/68
[2019-09-24] MEDS: THIAMINE HCL 100 MG TABLET PO SCH ×2 (10:00→16:35)
[2019-09-24] MEDS: FOLIC ACID 1 MG TABLET PO SCH (10:00)
[2019-09-24] MEDS: AmLODIPine BESYLATE 10 MG TABLET PO SCH (10:00)
[2019-09-24] MEDS: MULTIVITAMINS WITH MINERALS, THERAPEUTIC TABLET PO SCH (10:00)
[2019-09-24] MEDS: LISINOPRIL 5 MG TABLET PO SCH (10:01)
[2019-09-24] MEDS: NALTREXONE HCL 50 MG TABLET PO SCH (10:01)
[2019-09-24] MEDS: PREGABALIN 50 MG CAPSULE PO SCH ×3 (10:01→16:35)
[2019-09-24] MEDS: DULoxetine HCL 60 MG CAPSULE PO SCH ×2 (10:01→16:35)
[2019-09-24] MEDS ORDERED: LORazepam 2 MG TABLET PO PRN (15:45)
[2019-09-24] MEDS ORDERED: LORazepam 2 MG TABLET PO ONE (15:45)
[2019-09-24 16:14] VITALS: BP 120/67
[2019-09-24 16:25] LABS: GLUCOMETER DEV NAME(LOC) BV2X.; GLUCOSE,POINT OF CARE 268 MG/DL (70-110)
[2019-09-24] MEDS: INSULIN LISPRO 100 UNITS/ML SQ PRN ×2 (16:45→20:45)
[2019-09-24 20:28] LABS: GLUCOMETER DEV NAME(LOC) BV2X.; GLUCOSE,POINT OF CARE 215 MG/DL (70-110)
[2019-09-24] MEDS: INSULIN GLARGINE,HUM.REC.ANLOG 100 UNITS/ML SQ SCH (20:46)
[2019-09-25 02:08] VITALS: BP 124/84
[2019-09-25] MEDS: ZOLPIDEM TARTRATE 10 MG TABLET PO PRN (02:18)
[2019-09-25 06:47] LABS: GLUCOMETER DEV NAME(LOC) BV2X.; GLUCOSE,POINT OF CARE 117 MG/DL (70-110)
[2019-09-25] MEDS: LURASIDONE HCL 40 MG TABLET PO SCH (07:07)
[2019-09-25 08:41] VITALS: BP 112/75
[2019-09-25] MEDS: MULTIVITAMINS WITH MINERALS, THERAPEUTIC TABLET PO SCH (09:38)
[2019-09-25] MEDS: FOLIC ACID 1 MG TABLET PO SCH (09:38)
[2019-09-25] MEDS: PREGABALIN 50 MG CAPSULE PO SCH ×2 (09:38→13:55)
[2019-09-25] MEDS: NALTREXONE HCL 50 MG TABLET PO SCH (09:38)
[2019-09-25] MEDS: DULoxetine HCL 60 MG CAPSULE PO SCH ×2 (09:38→17:00)
[2019-09-25] MEDS: THIAMINE HCL 100 MG TABLET PO SCH ×2 (09:38→16:59)
[2019-09-25] MEDS: LISINOPRIL 5 MG TABLET PO SCH (09:38)
[2019-09-25] MEDS: AmLODIPine BESYLATE 10 MG TABLET PO SCH (09:38)
[2019-09-25] MEDS: INSULIN LISPRO 100 UNITS/ML SQ PRN ×3 (11:47→20:52)
[2019-09-25 11:55] LABS: GLUCOMETER DEV NAME(LOC) BV2X.; GLUCOSE,POINT OF CARE 233 MG/DL (70-110)
[2019-09-25] MEDS: LORazepam 2 MG TABLET PO PRN (13:55)
[2019-09-25 16:13] VITALS: BP 119/79
[2019-09-25 16:22] LABS: GLUCOMETER DEV NAME(LOC) BV2X.; GLUCOSE,POINT OF CARE 201 MG/DL (70-110)
[2019-09-25] MEDS: PREGABALIN 75 MG CAPSULE PO SCH (16:59)
[2019-09-25 20:20] LABS: GLUCOMETER DEV NAME(LOC) BV2X.; GLUCOSE,POINT OF CARE 224 MG/DL (70-110)
[2019-09-25] MEDS: TraZODone HCL 150 MG TABLET PO SCH (20:29)
[2019-09-25] MEDS: INSULIN GLARGINE,HUM.REC.ANLOG 100 UNITS/ML SQ SCH (20:52)
[2019-09-26 02:09] VITALS: BP 105/76
[2019-09-26 06:33] LABS: GLUCOMETER DEV NAME(LOC) BV2X.; GLUCOSE,POINT OF CARE 86 MG/DL (70-110)
[2019-09-26] MEDS: LURASIDONE HCL 40 MG TABLET PO SCH (07:19)
[2019-09-26] MEDS: LORazepam 2 MG TABLET PO PRN ×3 (08:09→21:12)
[2019-09-26 08:37] VITALS: BP 130/85
[2019-09-26] MEDS: MULTIVITAMINS WITH MINERALS, THERAPEUTIC TABLET PO SCH (09:26)
[2019-09-26] MEDS: DULoxetine HCL 60 MG CAPSULE PO SCH ×2 (09:26→17:08)
[2019-09-26] MEDS: PREGABALIN 75 MG CAPSULE PO SCH ×3 (09:26→17:08)
[2019-09-26] MEDS: FOLIC ACID 1 MG TABLET PO SCH (09:41)
[2019-09-26] MEDS: AmLODIPine BESYLATE 10 MG TABLET PO SCH (09:41)
[2019-09-26] MEDS: NALTREXONE HCL 50 MG TABLET PO SCH (09:42)
[2019-09-26] MEDS: LISINOPRIL 5 MG TABLET PO SCH (09:42)
[2019-09-26] MEDS: THIAMINE HCL 100 MG TABLET PO SCH ×2 (09:42→17:08)
[2019-09-26] MEDS: INSULIN LISPRO 100 UNITS/ML SQ PRN ×3 (12:03→20:48)
[2019-09-26 12:04] LABS: GLUCOMETER DEV NAME(LOC) BV2X.; GLUCOSE,POINT OF CARE 265 MG/DL (70-110)
[2019-09-26 16:08] VITALS: BP 113/73
[2019-09-26 16:41] LABS: GLUCOMETER DEV NAME(LOC) BV2X.; GLUCOSE,POINT OF CARE 153 MG/DL (70-110)
[2019-09-26] MEDS: TraZODone HCL 150 MG TABLET PO SCH (20:45)
[2019-09-26] MEDS: MAGNESIUM HYDROXIDE SUSPENSION 30 ML UDCUP PO PRN (20:46)
[2019-09-26] MEDS: INSULIN GLARGINE,HUM.REC.ANLOG 100 UNITS/ML SQ SCH (20:48)
[2019-09-26 21:35] LABS: GLUCOMETER DEV NAME(LOC) BV2X.; GLUCOSE,POINT OF CARE 273 MG/DL (70-110)
[2019-09-27 06:35] LABS: GLUCOMETER DEV NAME(LOC) BV2X.; GLUCOSE,POINT OF CARE 174 MG/DL (70-110)
[2019-09-27 06:36] VITALS: BP 107/64
[2019-09-27] MEDS: LURASIDONE HCL 40 MG TABLET PO SCH (06:49)
[2019-09-27] MEDS: INSULIN LISPRO 100 UNITS/ML SQ PRN ×4 (06:51→20:27)
[2019-09-27] MEDS: LORazepam 2 MG TABLET PO PRN ×2 (06:59→16:54)
[2019-09-27 08:19] VITALS: BP 103/69
[2019-09-27] MEDS: DULoxetine HCL 60 MG CAPSULE PO SCH ×2 (08:28→16:13)
[2019-09-27] MEDS: FOLIC ACID 1 MG TABLET PO SCH (08:28)
[2019-09-27] MEDS: AmLODIPine BESYLATE 10 MG TABLET PO SCH (08:28)
[2019-09-27] MEDS: THIAMINE HCL 100 MG TABLET PO SCH ×2 (08:28→16:13)
[2019-09-27] MEDS: MULTIVITAMINS WITH MINERALS, THERAPEUTIC TABLET PO SCH (08:28)
[2019-09-27] MEDS: NALTREXONE HCL 50 MG TABLET PO SCH (08:28)
[2019-09-27] MEDS: PREGABALIN 75 MG CAPSULE PO SCH ×3 (08:28→16:13)
[2019-09-27] MEDS: LISINOPRIL 5 MG TABLET PO SCH (08:28)
[2019-09-27 11:46] LABS: GLUCOMETER DEV NAME(LOC) BV2X.; GLUCOSE,POINT OF CARE 196 MG/DL (70-110)
[2019-09-27 16:08] VITALS: BP 110/72
[2019-09-27 17:07] LABS: GLUCOMETER DEV NAME(LOC) BV2X.; GLUCOSE,POINT OF CARE 185 MG/DL (70-110)
[2019-09-27] MEDS: TraZODone HCL 150 MG TABLET PO SCH (20:23)
[2019-09-27 20:25] LABS: GLUCOMETER DEV NAME(LOC) BV2X.; GLUCOSE,POINT OF CARE 266 MG/DL (70-110)
[2019-09-27] MEDS: MAGNESIUM HYDROXIDE SUSPENSION 30 ML UDCUP PO PRN (20:25)
[2019-09-27] MEDS: ZOLPIDEM TARTRATE 10 MG TABLET PO PRN (20:25)
[2019-09-27] MEDS: INSULIN GLARGINE,HUM.REC.ANLOG 100 UNITS/ML SQ SCH (20:28)
[2019-09-28 04:11] VITALS: BP 108/70
[2019-09-28 06:20] LABS: GLUCOMETER DEV NAME(LOC) BV2X.; GLUCOSE,POINT OF CARE 102 MG/DL (70-110)
[2019-09-28] MEDS: LURASIDONE HCL 40 MG TABLET PO SCH (06:34)
[2019-09-28 08:42] VITALS: BP 120/74
[2019-09-28] MEDS: LISINOPRIL 5 MG TABLET PO SCH (08:54)
[2019-09-28] MEDS: PREGABALIN 75 MG CAPSULE PO SCH ×2 (08:55→13:21)
[2019-09-28] MEDS: THIAMINE HCL 100 MG TABLET PO SCH ×2 (08:55→16:37)
[2019-09-28] MEDS: AmLODIPine BESYLATE 10 MG TABLET PO SCH (08:55)
[2019-09-28] MEDS: MULTIVITAMINS WITH MINERALS, THERAPEUTIC TABLET PO SCH (08:55)
[2019-09-28] MEDS: NALTREXONE HCL 50 MG TABLET PO SCH (08:55)
[2019-09-28] MEDS: DULoxetine HCL 60 MG CAPSULE PO SCH ×2 (08:55→16:37)
[2019-09-28] MEDS: FOLIC ACID 1 MG TABLET PO SCH (08:55)
[2019-09-28 12:00] LABS: GLUCOMETER DEV NAME(LOC) BV2X.; GLUCOSE,POINT OF CARE 172 MG/DL (70-110)
[2019-09-28] MEDS: INSULIN LISPRO 100 UNITS/ML SQ PRN ×3 (13:45→20:53)
[2019-09-28] MEDS: LORazepam 2 MG TABLET PO PRN (13:57)
[2019-09-28] MEDS ORDERED: AMLO10TA7 PO (15:44)
[2019-09-28 16:07] VITALS: BP 125/71
[2019-09-28] MEDS: PREGABALIN 50 MG CAPSULE PO SCH (16:37)
[2019-09-28 16:43] LABS: GLUCOMETER DEV NAME(LOC) BV2X.; GLUCOSE,POINT OF CARE 310 MG/DL (70-110)
[2019-09-28 20:30] LABS: GLUCOMETER DEV NAME(LOC) BV2X.; GLUCOSE,POINT OF CARE 209 MG/DL (70-110)
[2019-09-28] MEDS: TraZODone HCL 100 MG TABLET PO SCH (20:50)
[2019-09-28] MEDS: INSULIN GLARGINE,HUM.REC.ANLOG 100 UNITS/ML SQ SCH (20:52)
[2019-09-29 00:03] VITALS: BP 127/82
[2019-09-29] MEDS: LURASIDONE HCL 40 MG TABLET PO SCH (06:25)
[2019-09-29 06:36] LABS: GLUCOMETER DEV NAME(LOC) BV2X.; GLUCOSE,POINT OF CARE 133 MG/DL (70-110)
[2019-09-29 08:08] VITALS: BP 121/76
[2019-09-29] MEDS: DULoxetine HCL 60 MG CAPSULE PO SCH ×2 (08:45→16:29)
[2019-09-29] MEDS: PREGABALIN 50 MG CAPSULE PO SCH ×3 (08:45→16:48)
[2019-09-29] MEDS: LISINOPRIL 5 MG TABLET PO SCH (08:46)
[2019-09-29] MEDS: AmLODIPine BESYLATE 10 MG TABLET PO SCH (08:46)
[2019-09-29] MEDS: NALTREXONE HCL 50 MG TABLET PO SCH (08:46)
[2019-09-29] MEDS: MULTIVITAMINS WITH MINERALS, THERAPEUTIC TABLET PO SCH (08:46)
[2019-09-29] MEDS: THIAMINE HCL 100 MG TABLET PO SCH ×2 (08:46→16:29)
[2019-09-29] MEDS: FOLIC ACID 1 MG TABLET PO SCH (08:46)
[2019-09-29] MEDS: LORazepam 2 MG TABLET PO PRN ×2 (09:09→18:18)
[2019-09-29] MEDS: INSULIN LISPRO 100 UNITS/ML SQ PRN ×3 (11:40→20:36)
[2019-09-29 11:48] LABS: GLUCOMETER DEV NAME(LOC) BV2X.; GLUCOSE,POINT OF CARE 298 MG/DL (70-110)
[2019-09-29 16:16] LABS: GLUCOMETER DEV NAME(LOC) BV2X.; GLUCOSE,POINT OF CARE 270 MG/DL (70-110)
[2019-09-29 16:19] VITALS: BP 107/66
[2019-09-29 18:17] VITALS: BP 110/71
[2019-09-29 20:22] LABS: GLUCOMETER DEV NAME(LOC) BV2X.; GLUCOSE,POINT OF CARE 315 MG/DL (70-110)
[2019-09-29] MEDS: TraZODone HCL 100 MG TABLET PO SCH (20:31)
[2019-09-29] MEDS: INSULIN GLARGINE,HUM.REC.ANLOG 100 UNITS/ML SQ SCH (20:37)
[2019-09-30 00:03] VITALS: BP 112/71
[2019-09-30 06:16] LABS: GLUCOMETER DEV NAME(LOC) BV2X.; GLUCOSE,POINT OF CARE 184 MG/DL (70-110)
[2019-09-30] MEDS: INSULIN LISPRO 100 UNITS/ML SQ PRN ×4 (06:33→20:45)
[2019-09-30] MEDS: LURASIDONE HCL 40 MG TABLET PO SCH (06:53)
[2019-09-30 08:11] VITALS: BP 124/76
[2019-09-30] MEDS: DULoxetine HCL 60 MG CAPSULE PO SCH ×2 (08:42→17:03)
[2019-09-30] MEDS: PREGABALIN 50 MG CAPSULE PO SCH ×3 (08:42→17:03)
[2019-09-30] MEDS: THIAMINE HCL 100 MG TABLET PO SCH ×2 (08:42→17:03)
[2019-09-30] MEDS: FOLIC ACID 1 MG TABLET PO SCH (08:42)
[2019-09-30] MEDS: AmLODIPine BESYLATE 10 MG TABLET PO SCH (08:42)
[2019-09-30] MEDS: MULTIVITAMINS WITH MINERALS, THERAPEUTIC TABLET PO SCH (08:42)
[2019-09-30] MEDS: NALTREXONE HCL 50 MG TABLET PO SCH (08:42)
[2019-09-30] MEDS: LISINOPRIL 5 MG TABLET PO SCH (08:43)
[2019-09-30] MEDS: LORazepam 2 MG TABLET PO PRN ×2 (08:46→21:13)
[2019-09-30 11:04] LABS: GLUCOMETER DEV NAME(LOC) BV2X.; GLUCOSE,POINT OF CARE 191 MG/DL (70-110)
[2019-09-30] MEDS ORDERED: PREG50 PO (15:16)
[2019-09-30] MEDS ORDERED: NALT50TA PO (15:16)
[2019-09-30] MEDS ORDERED: TRAZ-220 PO (15:16)
[2019-09-30] MEDS ORDERED: DULO60CA44 PO (15:16)
[2019-09-30] MEDS ORDERED: LURA40 PO (15:16)
[2019-09-30 16:09] VITALS: BP 119/80
[2019-09-30 17:27] LABS: GLUCOMETER DEV NAME(LOC) BV2X.; GLUCOSE,POINT OF CARE 267 MG/DL (70-110)
[2019-09-30] MEDS: TraZODone HCL 100 MG TABLET PO SCH (20:07)
[2019-09-30] MEDS: INSULIN GLARGINE,HUM.REC.ANLOG 100 UNITS/ML SQ SCH (20:45)
[2019-09-30 21:03] LABS: GLUCOMETER DEV NAME(LOC) BV2X.; GLUCOSE,POINT OF CARE 211 MG/DL (70-110)
[2019-10-01 01:20] VITALS: BP 120/66
[2019-10-01 06:19] LABS: GLUCOMETER DEV NAME(LOC) BV2X.; GLUCOSE,POINT OF CARE 120 MG/DL (70-110)
[2019-10-01] MEDS: LURASIDONE HCL 40 MG TABLET PO SCH (06:43)
[2019-10-01] MEDS ORDERED: INSLAN SQ (08:06)
[2019-10-01 08:15] VITALS: BP 114/71
[2019-10-01] MEDS: PREGABALIN 50 MG CAPSULE PO SCH ×2 (08:34→12:25)
[2019-10-01] MEDS: DULoxetine HCL 60 MG CAPSULE PO SCH (08:34)
[2019-10-01] MEDS: LISINOPRIL 5 MG TABLET PO SCH (08:35)
[2019-10-01] MEDS: FOLIC ACID 1 MG TABLET PO SCH (08:35)
[2019-10-01] MEDS: MULTIVITAMINS WITH MINERALS, THERAPEUTIC TABLET PO SCH (08:35)
[2019-10-01] MEDS: NALTREXONE HCL 50 MG TABLET PO SCH (08:35)
[2019-10-01] MEDS: THIAMINE HCL 100 MG TABLET PO SCH (08:35)
[2019-10-01] MEDS: AmLODIPine BESYLATE 10 MG TABLET PO SCH (08:39)
[2019-10-01 11:24] LABS: GLUCOMETER DEV NAME(LOC) BV2X.; GLUCOSE,POINT OF CARE 198 MG/DL (70-110)
[2019-10-01] MEDS: INSULIN LISPRO 100 UNITS/ML SQ PRN (11:51)
== END 2019-10-01 14:52 | disposition home or self-care (01) | DRG 885 ==
LOC: EDSTATUS 13:54 → BV PSY EVL 15:16 → B2X 20:09
PROVIDERS: ADMIT Psychiatry & Neurology Psychiatry; ATTEND Psychiatry & Neurology Psychiatry
DX: F31.30 Bipolar disorder, current episode depressed, mild or moderate severity, unspecified (principal); N18.9 Chronic kidney disease, unspecified; N17.9 Acute kidney failure, unspecified; F11.20 Opioid dependence, uncomplicated; K50.90 Crohn's disease, unspecified, without complications; K86.1 Other chronic pancreatitis; R45.851 Suicidal ideations; D64.9 Anemia, unspecified; E11.22 Type 2 diabetes mellitus with diabetic chronic kidney disease; E11.42 Type 2 diabetes mellitus with diabetic polyneuropathy; E87.5 Hyperkalemia; F12.90 Cannabis use, unspecified, uncomplicated; G89.4 Chronic pain syndrome; I12.9 Hypertensive chronic kidney disease with stage 1 through stage 4 chronic kidney disease, or unspecified chronic kidney disease; M79.7 Fibromyalgia; Z82.49 Family history of ischemic heart disease and other diseases of the circulatory system; Z91.19 Patient's noncompliance with other medical treatment and regimen; Z90.710 Acquired absence of both cervix and uterus; Z90.49 Acquired absence of other specified parts of digestive tract; Z83.3 Family history of diabetes mellitus; Z79.899 Other long term (current) drug therapy
CPT/HCPCS: 83036; 84439; 84443; 86592; 87081; 93005; 96365; G0480; G0481; J0131; J1815; J2405; J7030

== ENCOUNTER 2019-09-23 16:55 | Emergency (ER) | payer MEDICARE, OTHER ==
[~2019-09-23] VITALS: Ht 162.6 cm; Wt 57.0 kg
[2019-09-23 17:38] LABS: BASOPHILS % (AUTO) 0.8 % (0.0-2.0); EOSINOPHILS % (AUTO) 0.5 % (1.0-6.0); HEMATOCRIT 27.9 % (36-46); HEMOGLOBIN 9.2 g/dL (12.0-16.0); LYMPHOCYTES # (AUTO) 1.5 K/uL (1.0-4.8); LYMPHOCYTES % (AUTO) 47.6 % (22.0-44.0); MEAN CORPUSCULAR HEMOGLOBIN 29.3 pg (26.0-34.0); MEAN CORPUSCULAR HGB CONC 33.1 G/dL (31.0-37.0); MEAN CORPUSCULAR VOLUME 89 fL (80-100); MONOCYTES # (AUTO) 0.2 K/uL (0.1-1.0); MONOCYTES % (AUTO) 6.7 % (2.0-9.0); NEUTROPHILS # (AUTO) 1.4 K/uL (1.8-7.7); NEUTROPHILS % (AUTO) 44.4 % (40.0-70.0); PLATELET COUNT (AUTO) 166 K/uL (150-450); RED BLOOD CELL COUNT(AUTO) 3.15 MIL/uL (4.00-5.20)
[2019-09-23 18:01] LABS: CALCIUM, TOTAL 9.5 mg/dL (8.8-10.5); CREATININE 1.63 mg/dL (0.60-1.30); POTASSIUM 5.1 mmol/L (3.5-5.1)
[2019-09-23 18:04] LABS: ALBUMIN 3.2 g/dL (3.4-5.0); BILIRUBIN,TOTAL 0.2 mg/dL (0.1-1.0)
[2019-09-23 18:05] LABS: PLATELET MORPHOLOGY COMMENT NORMAL
[2019-09-23 18:28] VITALS: BP 130/75
[2019-09-23] MEDS ORDERED: CARISOPRODOL 350 MG TABLET PO ONE (20:15)
[2019-09-23] MEDS ORDERED: LORazepam 2 MG/ML VIAL IM ONE (20:45)
[2019-09-23] MEDS ORDERED: HALOPERIDOL LACTATE 5 MG/ML VIAL IM ONE (20:45)
[2019-09-23] MEDS ORDERED: DiphenhydrAMINE HCL 50 MG/ML VIAL IM ONE (20:45)
== END 2019-09-23 21:31 | disposition home or self-care (01) ==
LOC: EMS 16:57
DX: F25.9 Schizoaffective disorder, unspecified (principal); K85.90 Acute pancreatitis without necrosis or infection, unspecified; N18.9 Chronic kidney disease, unspecified; E11.9 Type 2 diabetes mellitus without complications; F32.9 Major depressive disorder, single episode, unspecified; Z90.710 Acquired absence of both cervix and uterus; Z98.890 Other specified postprocedural states; Z88.5 Allergy status to narcotic agent; Z79.899 Other long term (current) drug therapy; Z88.8 Allergy status to other drugs, medicaments and biological substances
CPT/HCPCS: 36415; 74176; 80053; 83690; 85025; 96372; 99291; J1200; J1630; J2060

== ENCOUNTER 2020-01-05 10:57 | Inpatient (IN) | payer MEDICARE, OTHER ==
[~2020-01-05] VITALS: Ht 162.6 cm; Wt 58.3 kg
[~2020-01-05 10:57] MED LIST changes: +AMLO10TA7 PO; -AMLO5TAB9 PO; +LURA40 PO; +NALT50TA PO; +PREG50 PO; +TRAZ-257 PO; -TRAZ150 PO
[2020-01-05 11:26] LABS: GLUCOSE,POINT OF CARE 434 MG/DL (70-110)
[2020-01-05] MEDS ORDERED: SODIUM CHLORIDE 0.9% 1,000 ML IV ONE ×4 (13:30→22:45)
[2020-01-05] MEDS ORDERED: MORPHINE SULFATE 4 MG/ML SYRINGE IVP ONE ×2 (13:30→17:00)
[2020-01-05] MEDS ORDERED: ONDANSETRON HCL 4 MG/2 ML VIAL IVP ONE (13:30)
[2020-01-05 13:38] LABS: BASOPHILS % (AUTO) 0.6 % (0.0-2.0); EOSINOPHILS % (AUTO) 1.1 % (1.0-6.0); HEMATOCRIT 28.8 % (36-46); HEMOGLOBIN 9.4 g/dL (12.0-16.0); LYMPHOCYTES # (AUTO) 1.9 K/uL (1.0-4.8); LYMPHOCYTES % (AUTO) 36.9 % (22.0-44.0); MEAN CORPUSCULAR HEMOGLOBIN 28.4 pg (26.0-34.0); MEAN CORPUSCULAR HGB CONC 32.7 G/dL (31.0-37.0); MEAN CORPUSCULAR VOLUME 87 fL (80-100); MONOCYTES # (AUTO) 0.5 K/uL (0.1-1.0); MONOCYTES % (AUTO) 9.5 % (2.0-9.0); NEUTROPHILS # (AUTO) 2.6 K/uL (1.8-7.7); NEUTROPHILS % (AUTO) 51.9 % (40.0-70.0); PLATELET COUNT (AUTO) 155 K/uL (150-450); RED BLOOD CELL COUNT(AUTO) 3.32 MIL/uL (4.00-5.20); RED CELL DISTRIBUTION WIDTH 14.4 % (11.5-14.5)
[2020-01-05 13:50] LABS: CALCIUM, TOTAL 9.1 mg/dL (8.8-10.5); CREATININE 2.13 mg/dL (0.60-1.30); POTASSIUM 4.7 mmol/L (3.5-5.1)
[2020-01-05 13:57] LABS: ALBUMIN 3.6 g/dL (3.4-5.0); BILIRUBIN,TOTAL 0.3 mg/dL (0.1-1.0); TOTAL PROTEIN, SERUM 7.5 g/dL (6.4-8.2)
[2020-01-05 17:52] LABS: APPEARANCE,URINE CLEAR (CLEAR); BILIRUBIN,URINE NEGATIVE (NEGATIVE); GLUCOSE, URINE (UA) 250 mg/dL (NEGATIVE); KETONES,URINE NEGATIVE (NEGATIVE); LEUKOCYTE ESTERASE ,URINE NEGATIVE (NEGATIVE); NITRATE,URINE NEGATIVE (NEGATIVE); OCCULT BLOOD,URINE LARGE (NEGATIVE); PROTEIN,URINE NEGATIVE (NEGATIVE); UROBILINOGEN,URINE 0.2 mg/dL (<=1.0)
[2020-01-05 17:56] LABS: BACTERIA,URINE Rare /HPF (None Seen); RBC,URINE 26-50 /HPF (0-2); SQUAMOUS EPITHELIAL CELL,UR Few /LPF (None Seen); WBC,URINE 0-2 /HPF (0-5)
[2020-01-05] MEDS ORDERED: 0.9% SODIUM CHLORIDE 10 ML SYRINGE IVP PRN (19:15)
[2020-01-05] MEDS ORDERED: ACETAMINOPHEN 325 MG TABLET PO PRN ×2 (19:15→22:45)
[2020-01-05] MEDS ORDERED: ONDANSETRON HCL 4 MG/2 ML VIAL IVP PRN ×2 (19:15→22:45)
[2020-01-05] MEDS ORDERED: TAMSULOSIN HCL 0.4 MG CAPSULE PO ONE (19:30)
[2020-01-05] MEDS ORDERED: ACETAMINOPHEN 325 MG TABLET PO ONE (19:30)
[2020-01-05 20:48] LABS: GLUCOSE,POINT OF CARE 86 MG/DL (70-110)
[2020-01-05 21:55] VITALS: BP 123/93
[2020-01-05] MEDS ORDERED: MAGNESIUM HYDROXIDE SUSPENSION 30 ML UDCUP PO PRN (22:45)
[2020-01-05] MEDS ORDERED: BISACODYL 10 MG RECTAL RECTAL SUPPOSITORY PR PRN (22:45)
[2020-01-05] MEDS ORDERED: ZOLPIDEM TARTRATE 5 MG TABLET PO PRN (22:45)
[2020-01-05] MEDS: INSULIN GLARGINE,HUM.REC.ANLOG 100 UNITS/ML SQ SCH (22:47)
[2020-01-05] MEDS: HEPARIN SODIUM,PORCINE 5,000 UNITS/ML VIAL SQ SCH (23:34)
[2020-01-06 04:27] VITALS: BP 120/62
[2020-01-06 07:19] LABS: BASOPHILS % (AUTO) 0.7 % (0.0-2.0); EOSINOPHILS % (AUTO) 0.7 % (1.0-6.0); HEMATOCRIT 28.8 % (36-46); HEMOGLOBIN 9.4 g/dL (12.0-16.0); LYMPHOCYTES # (AUTO) 1.2 K/uL (1.0-4.8); LYMPHOCYTES % (AUTO) 25.5 % (22.0-44.0); MEAN CORPUSCULAR HEMOGLOBIN 28.6 pg (26.0-34.0); MEAN CORPUSCULAR HGB CONC 32.8 G/dL (31.0-37.0); MEAN CORPUSCULAR VOLUME 87 fL (80-100); MONOCYTES # (AUTO) 0.4 K/uL (0.1-1.0); MONOCYTES % (AUTO) 9.1 % (2.0-9.0); PLATELET COUNT (AUTO) 157 K/uL (150-450); RED CELL DISTRIBUTION WIDTH 14.1 % (11.5-14.5)
[2020-01-06 07:25] VITALS: BP 135/75
[2020-01-06 07:31] LABS: CREATININE 2.23 mg/dL (0.60-1.30); POTASSIUM 4.2 mmol/L (3.5-5.1)
[2020-01-06 07:32] LABS: ALBUMIN 2.9 g/dL (3.4-5.0); BILIRUBIN,TOTAL 0.4 mg/dL (0.1-1.0); CALCIUM, TOTAL 8.7 mg/dL (8.8-10.5); TOTAL PROTEIN, SERUM 6.6 g/dL (6.4-8.2)
[2020-01-06] MEDS: PREGABALIN 50 MG CAPSULE PO SCH ×3 (07:55→20:04)
[2020-01-06] MEDS: LURASIDONE HCL 40 MG TABLET PO SCH (07:55)
[2020-01-06] MEDS: AmLODIPine BESYLATE 10 MG TABLET PO SCH (07:55)
[2020-01-06] MEDS: PANTOPRAZOLE SODIUM 40 MG DR TABLET PO SCH (07:55)
[2020-01-06] MEDS: DOCUSATE SODIUM 100 MG CAPSULE PO SCH ×2 (07:55→20:04)
[2020-01-06] MEDS: DULoxetine HCL 60 MG CAPSULE PO SCH ×2 (07:55→20:03)
[2020-01-06] MEDS: HEPARIN SODIUM,PORCINE 5,000 UNITS/ML VIAL SQ SCH ×2 (07:58→15:40)
[2020-01-06] MEDS ORDERED: LISINOPRIL 5 MG TABLET PO SCH (09:00)
[2020-01-06] MEDS: MORPHINE SULFATE 2 MG/ML SYRINGE IVP PRN ×2 (11:17→20:13)
[2020-01-06 11:28] VITALS: BP 132/83
[2020-01-06] MEDS ORDERED: SODIUM CHLORIDE 0.9% 500 ML IV SCH (13:00)
[2020-01-06] MEDS: SODIUM CHLORIDE 0.9% 1,000 ML IV SCH (15:09)
[2020-01-06 15:36] VITALS: BP 100/64
[2020-01-06 20:03] VITALS: BP 119/69
[2020-01-06] MEDS: TraZODone HCL 100 MG TABLET PO SCH (20:04)
[2020-01-06] MEDS: TAMSULOSIN HCL 0.4 MG CAPSULE PO SCH (20:04)
[2020-01-06] MEDS: INSULIN GLARGINE,HUM.REC.ANLOG 100 UNITS/ML SQ SCH (20:08)
[2020-01-06 23:39] VITALS: BP 154/73
[2020-01-07 04:50] VITALS: BP 128/62
[2020-01-07 06:15] LABS: BASOPHILS % (AUTO) 0.6 % (0.0-2.0); EOSINOPHILS % (AUTO) 0.5 % (1.0-6.0); HEMOGLOBIN 8.2 g/dL (12.0-16.0); LYMPHOCYTES # (AUTO) 1.3 K/uL (1.0-4.8); LYMPHOCYTES % (AUTO) 36.3 % (22.0-44.0); MEAN CORPUSCULAR HEMOGLOBIN 28.4 pg (26.0-34.0); MEAN CORPUSCULAR HGB CONC 32.6 G/dL (31.0-37.0); MEAN CORPUSCULAR VOLUME 87 fL (80-100); MONOCYTES # (AUTO) 0.3 K/uL (0.1-1.0); MONOCYTES % (AUTO) 7.4 % (2.0-9.0); NEUTROPHILS % (AUTO) 55.2 % (40.0-70.0); PLATELET COUNT (AUTO) 143 K/uL (150-450); RED BLOOD CELL COUNT(AUTO) 2.87 MIL/uL (4.00-5.20); RED CELL DISTRIBUTION WIDTH 14.3 % (11.5-14.5)
[2020-01-07 06:45] LABS: ALBUMIN 2.5 g/dL (3.4-5.0); BILIRUBIN,TOTAL 0.3 mg/dL (0.1-1.0); CALCIUM, TOTAL 8.8 mg/dL (8.8-10.5); CHOL/HDL RATIO 2.7 (3.9-5.7); CREATININE 2.15 mg/dL (0.60-1.30); MAGNESIUM 1.4 mg/dL (1.80-2.40); PHOSPHORUS 3.3 mg/dL (2.5-4.9); POTASSIUM 4.3 mmol/L (3.5-5.1); THYROID STIMULATING HORMONE 0.38 uIU/mL (0.36-3.74); TOTAL PROTEIN, SERUM 5.9 g/dL (6.4-8.2)
[2020-01-07 06:46] LABS: % IRON SATURATION 11.9 % (22-44)
[2020-01-07 08:08] VITALS: BP 107/61
[2020-01-07] MEDS ORDERED: MAGNESIUM SULFATE 2 GM in DEXTROSE 5%-WATER 50 ML IV ONE (08:30)
[2020-01-07] MEDS: PREGABALIN 50 MG CAPSULE PO SCH ×3 (08:45→20:40)
[2020-01-07] MEDS: DULoxetine HCL 60 MG CAPSULE PO SCH ×2 (08:45→20:39)
[2020-01-07] MEDS: DOCUSATE SODIUM 100 MG CAPSULE PO SCH ×2 (08:45→20:39)
[2020-01-07] MEDS: LURASIDONE HCL 40 MG TABLET PO SCH (08:45)
[2020-01-07] MEDS: HEPARIN SODIUM,PORCINE 5,000 UNITS/ML VIAL SQ SCH ×3 (08:45→16:04)
[2020-01-07] MEDS: PANTOPRAZOLE SODIUM 40 MG DR TABLET PO SCH (08:45)
[2020-01-07] MEDS: AmLODIPine BESYLATE 10 MG TABLET PO SCH ×2 (08:49→09:20)
[2020-01-07] MEDS: SODIUM CHLORIDE 0.9% 1,000 ML IV SCH ×2 (08:50→23:07)
[2020-01-07] MEDS ORDERED: EPOETIN ALFA 10,000 UNITS/ML VIAL SQ SCH (09:00)
[2020-01-07] MEDS: SOD FERRIC GLUC COMPLX/SUCROSE 125 MG in SODIUM CHLORIDE 0.9% 100 ML IV SCH (09:20)
[2020-01-07] MEDS: MORPHINE SULFATE 2 MG/ML SYRINGE IVP PRN ×2 (09:49→16:53)
[2020-01-07 11:36] VITALS: BP 107/61
[2020-01-07 15:39] VITALS: BP 137/76
[2020-01-07 19:19] LABS: APPEARANCE,URINE CLEAR (CLEAR); BILIRUBIN,URINE NEGATIVE (NEGATIVE); GLUCOSE, URINE (UA) NEGATIVE (NEGATIVE); KETONES,URINE NEGATIVE (NEGATIVE); LEUKOCYTE ESTERASE ,URINE NEGATIVE (NEGATIVE); NITRATE,URINE NEGATIVE (NEGATIVE); OCCULT BLOOD,URINE SMALL (NEGATIVE); PROTEIN,URINE NEGATIVE (NEGATIVE); UROBILINOGEN,URINE 0.2 mg/dL (<=1.0)
[2020-01-07 19:24] LABS: CREATININE,URINE RANDOM 41.4 mg/dL (30.0-125.0); SODIUM,URINE RANDOM 124 mmol/l (20-110); UREA NITROGEN,URINE RANDOM 239 mg/dL (350-1000)
[2020-01-07 19:35] VITALS: BP 87/55
[2020-01-07 19:37] LABS: BACTERIA,URINE Few /HPF (None Seen); RBC,URINE 0-2 /HPF (0-2); SQUAMOUS EPITHELIAL CELL,UR Few /LPF (None Seen); WBC,URINE 0-2 /HPF (0-5)
[2020-01-07] MEDS: TAMSULOSIN HCL 0.4 MG CAPSULE PO SCH (20:39)
[2020-01-07] MEDS: TraZODone HCL 100 MG TABLET PO SCH (20:40)
[2020-01-07] MEDS: INSULIN GLARGINE,HUM.REC.ANLOG 100 UNITS/ML SQ SCH (20:49)
[2020-01-07 21:41] LABS: GLUCOMETER DEV NAME(LOC) 4E.2; GLUCOSE,POINT OF CARE 184 MG/DL (70-110)
[2020-01-07 23:45] VITALS: BP 111/68
[2020-01-08] MEDS: HEPARIN SODIUM,PORCINE 5,000 UNITS/ML VIAL SQ SCH ×2 (00:31→08:24)
[2020-01-08] MEDS: MORPHINE SULFATE 2 MG/ML SYRINGE IVP PRN ×2 (00:36→08:32)
[2020-01-08 04:00] VITALS: BP 108/62
[2020-01-08 06:49] LABS: BASOPHILS % (AUTO) 0.4 % (0.0-2.0); HEMATOCRIT 25.9 % (36-46); HEMOGLOBIN 8.5 g/dL (12.0-16.0); LYMPHOCYTES # (AUTO) 1.2 K/uL (1.0-4.8); LYMPHOCYTES % (AUTO) 29.7 % (22.0-44.0); MEAN CORPUSCULAR HEMOGLOBIN 28.9 pg (26.0-34.0); MEAN CORPUSCULAR HGB CONC 32.8 G/dL (31.0-37.0); MEAN CORPUSCULAR VOLUME 88 fL (80-100); MONOCYTES # (AUTO) 0.4 K/uL (0.1-1.0); MONOCYTES % (AUTO) 10.6 % (2.0-9.0); NEUTROPHILS # (AUTO) 2.4 K/uL (1.8-7.7); NEUTROPHILS % (AUTO) 58.3 % (40.0-70.0); PLATELET COUNT (AUTO) 145 K/uL (150-450); RED BLOOD CELL COUNT(AUTO) 2.94 MIL/uL (4.00-5.20); RED CELL DISTRIBUTION WIDTH 14.3 % (11.5-14.5)
[2020-01-08 06:54] LABS: GLUCOMETER DEV NAME(LOC) 4E.2; GLUCOSE,POINT OF CARE 93 MG/DL (70-110)
[2020-01-08 07:08] LABS: CALCIUM, TOTAL 8.9 mg/dL (8.8-10.5); CREATININE 1.84 mg/dL (0.60-1.30); MAGNESIUM 1.8 mg/dL (1.80-2.40); PHOSPHORUS 2.9 mg/dL (2.5-4.9); POTASSIUM 4.3 mmol/L (3.5-5.1)
[2020-01-08 08:17] VITALS: BP 134/60
[2020-01-08] MEDS: LURASIDONE HCL 40 MG TABLET PO SCH (08:23)
[2020-01-08] MEDS: DOCUSATE SODIUM 100 MG CAPSULE PO SCH (08:24)
[2020-01-08] MEDS: PANTOPRAZOLE SODIUM 40 MG DR TABLET PO SCH (08:24)
[2020-01-08] MEDS: PREGABALIN 50 MG CAPSULE PO SCH (08:24)
[2020-01-08] MEDS: AmLODIPine BESYLATE 10 MG TABLET PO SCH (08:24)
[2020-01-08] MEDS: DULoxetine HCL 60 MG CAPSULE PO SCH (08:24)
[2020-01-08] MEDS: SOD FERRIC GLUC COMPLX/SUCROSE 125 MG in SODIUM CHLORIDE 0.9% 100 ML IV SCH (09:36)
[2020-01-08 11:39] VITALS: BP 142/77
[2020-01-08] MEDS ORDERED: TAMS-13 PO (12:28)
[2020-01-08] MEDS ORDERED: AMLO5TAB9 PO (12:40)
== END 2020-01-08 16:09 | disposition home or self-care (01) | DRG 693 ==
LOC: EMS 11:01 → 4E 23:16
PROVIDERS: ADMIT Internal Medicine; ATTEND Internal Medicine
DX: N13.2 Hydronephrosis with renal and ureteral calculous obstruction (principal); R65.11 Systemic inflammatory response syndrome (SIRS) of non-infectious origin with acute organ dysfunction; K86.1 Other chronic pancreatitis; N17.9 Acute kidney failure, unspecified; E11.22 Type 2 diabetes mellitus with diabetic chronic kidney disease; N18.9 Chronic kidney disease, unspecified; F25.9 Schizoaffective disorder, unspecified; D64.9 Anemia, unspecified; I12.9 Hypertensive chronic kidney disease with stage 1 through stage 4 chronic kidney disease, or unspecified chronic kidney disease; F12.90 Cannabis use, unspecified, uncomplicated; F19.10 Other psychoactive substance abuse, uncomplicated; F32.9 Major depressive disorder, single episode, unspecified; Z90.49 Acquired absence of other specified parts of digestive tract; Z90.710 Acquired absence of both cervix and uterus; Z88.8 Allergy status to other drugs, medicaments and biological substances; Z88.6 Allergy status to analgesic agent; Z79.899 Other long term (current) drug therapy
CPT/HCPCS: 74176; 76770; 82570; 83540; 83550; 83735; 84100; 84300; 84439; 84443; 84540; 96374; 96375; 96376; G0378; J0885; J1644; J1815; J2270; J2405; J2916; J3475; J7030; J7050; J7060

== ENCOUNTER 2020-01-11 17:31 | Emergency (ER) | payer MEDICARE, OTHER ==
[~2020-01-11] VITALS: Ht 163.8 cm; Wt 56.8 kg
[~2020-01-11 17:31] MED LIST changes: -AMLO10TA7 PO; +AMLO5TAB9 PO; -LISI-660 PO; -NALT50TA PO; +TAMS-13 PO
[2020-01-11 17:35] VITALS: BP 106/67
[2020-01-11 17:49] LABS: GLUCOSE,POINT OF CARE 232 MG/DL (70-110)
[2020-01-11] MEDS ORDERED: ACETAMINOPHEN 500 MG TABLET PO ONE (18:30)
[2020-01-11 18:48] LABS: BASOPHILS % (AUTO) 0.8 % (0.0-2.0); EOSINOPHILS % (AUTO) 2.2 % (1.0-6.0); HEMATOCRIT 25.6 % (36-46); HEMOGLOBIN 8.2 g/dL (12.0-16.0); LYMPHOCYTES # (AUTO) 1.3 K/uL (1.0-4.8); LYMPHOCYTES % (AUTO) 27.4 % (22.0-44.0); MEAN CORPUSCULAR HEMOGLOBIN 28.5 pg (26.0-34.0); MEAN CORPUSCULAR HGB CONC 32.2 G/dL (31.0-37.0); MEAN CORPUSCULAR VOLUME 89 fL (80-100); MONOCYTES # (AUTO) 0.6 K/uL (0.1-1.0); MONOCYTES % (AUTO) 12.7 % (2.0-9.0); NEUTROPHILS # (AUTO) 2.7 K/uL (1.8-7.7); NEUTROPHILS % (AUTO) 56.9 % (40.0-70.0); PLATELET COUNT (AUTO) 200 K/uL (150-450); RED BLOOD CELL COUNT(AUTO) 2.88 MIL/uL (4.00-5.20); RED CELL DISTRIBUTION WIDTH 14.5 % (11.5-14.5)
[2020-01-11 18:56] LABS: CALCIUM, TOTAL 9.1 mg/dL (8.8-10.5); CREATININE 2.51 mg/dL (0.60-1.30); POTASSIUM 5.1 mmol/L (3.5-5.1)
[2020-01-11 18:58] LABS: ALBUMIN 3.1 g/dL (3.4-5.0); BILIRUBIN,TOTAL 0.2 mg/dL (0.1-1.0); TOTAL PROTEIN, SERUM 7.5 g/dL (6.4-8.2)
== END 2020-01-11 19:45 | disposition home or self-care (01) ==
LOC: EMS 17:36
DX: I80.8 Phlebitis and thrombophlebitis of other sites (principal); F32.9 Major depressive disorder, single episode, unspecified; E11.9 Type 2 diabetes mellitus without complications; F20.9 Schizophrenia, unspecified; F12.90 Cannabis use, unspecified, uncomplicated; Z88.5 Allergy status to narcotic agent; Z88.8 Allergy status to other drugs, medicaments and biological substances; Z79.4 Long term (current) use of insulin; Z79.899 Other long term (current) drug therapy
CPT/HCPCS: 93971

== ENCOUNTER 2020-01-14 04:05 | Emergency (ER) | payer MEDICARE, OTHER ==
[~2020-01-14] VITALS: Ht 162.6 cm; Wt 56.8 kg
[2020-01-14] MEDS ORDERED: LISI-661 PO (04:26)
[2020-01-14 04:35] LABS: GLUCOSE,POINT OF CARE 199 MG/DL (70-110)
[2020-01-14 05:50] LABS: BASOPHILS % (AUTO) 1.1 % (0.0-2.0); EOSINOPHILS % (AUTO) 2.7 % (1.0-6.0); HEMOGLOBIN 8.4 g/dL (12.0-16.0); LYMPHOCYTES # (AUTO) 1.1 K/uL (1.0-4.8); MEAN CORPUSCULAR HEMOGLOBIN 28.4 pg (26.0-34.0); MEAN CORPUSCULAR HGB CONC 32.2 G/dL (31.0-37.0); MEAN CORPUSCULAR VOLUME 88 fL (80-100); MONOCYTES # (AUTO) 0.4 K/uL (0.1-1.0); MONOCYTES % (AUTO) 11.6 % (2.0-9.0); NEUTROPHILS # (AUTO) 1.6 K/uL (1.8-7.7); NEUTROPHILS % (AUTO) 49.6 % (40.0-70.0); PLATELET COUNT (AUTO) 238 K/uL (150-450); RED BLOOD CELL COUNT(AUTO) 2.94 MIL/uL (4.00-5.20); RED CELL DISTRIBUTION WIDTH 14.7 % (11.5-14.5)
[2020-01-14 05:57] LABS: CALCIUM, TOTAL 9.2 mg/dL (8.8-10.5); CREATININE 1.99 mg/dL (0.60-1.30); POTASSIUM 3.7 mmol/L (3.5-5.1)
[2020-01-14 06:00] VITALS: BP 150/80
[2020-01-14 06:08] LABS: ALBUMIN 3.1 g/dL (3.4-5.0); BILIRUBIN,TOTAL 0.3 mg/dL (0.1-1.0); TOTAL PROTEIN, SERUM 7.4 g/dL (6.4-8.2)
== END 2020-01-14 06:51 | disposition home or self-care (01) ==
LOC: EMS 04:05
DX: N13.30 Unspecified hydronephrosis (principal); E13.22 Other specified diabetes mellitus with diabetic chronic kidney disease; N18.9 Chronic kidney disease, unspecified; F32.9 Major depressive disorder, single episode, unspecified; F20.9 Schizophrenia, unspecified; F17.200 Nicotine dependence, unspecified, uncomplicated; F12.90 Cannabis use, unspecified, uncomplicated; Z88.6 Allergy status to analgesic agent; Z88.5 Allergy status to narcotic agent; Z90.89 Acquired absence of other organs; Z90.710 Acquired absence of both cervix and uterus; Z79.899 Other long term (current) drug therapy; Z79.4 Long term (current) use of insulin
CPT/HCPCS: 74176

== ENCOUNTER 2020-01-31 01:35 | Emergency (ER) | payer MEDICARE, OTHER ==
[~2020-01-31] VITALS: Ht 163.8 cm; Wt 56.8 kg
[~2020-01-31 01:35] MED LIST changes: +LISI-661 PO; -LURA40 PO; +LURA40TA2 PO; -TAMS-13 PO
[2020-01-31 02:04] LABS: GLUCOSE,POINT OF CARE 373 MG/DL (70-110)
[2020-01-31] MEDS ORDERED: INSULIN REGULAR, HUMAN 100 UNITS/ML IVP ONE ×2 (03:00→03:30)
[2020-01-31] MEDS ORDERED: DIPHENOXYLATE/ATROP 2.5-0.025 MG TABLET PO ONE (03:00)
[2020-01-31] MEDS ORDERED: SODIUM CHLORIDE 0.9% 1,000 ML IV ONE (03:00)
[2020-01-31] MEDS ORDERED: ACETAMINOPHEN 500 MG TABLET PO ONE (03:00)
[2020-01-31] MEDS ORDERED: ONDANSETRON HCL 4 MG/2 ML VIAL IVP ONE (03:00)
[2020-01-31 03:10] LABS: BASOPHILS % (AUTO) 1.1 % (0.0-2.0); EOSINOPHILS % (AUTO) 1.4 % (1.0-6.0); HEMATOCRIT 32.1 % (36-46); HEMOGLOBIN 10.3 g/dL (12.0-16.0); LYMPHOCYTES # (AUTO) 2.3 K/uL (1.0-4.8); LYMPHOCYTES % (AUTO) 51.8 % (22.0-44.0); MEAN CORPUSCULAR HEMOGLOBIN 27.9 pg (26.0-34.0); MEAN CORPUSCULAR VOLUME 87 fL (80-100); MONOCYTES # (AUTO) 0.5 K/uL (0.1-1.0); MONOCYTES % (AUTO) 11.2 % (2.0-9.0); NEUTROPHILS # (AUTO) 1.6 K/uL (1.8-7.7); NEUTROPHILS % (AUTO) 34.5 % (40.0-70.0); PLATELET COUNT (AUTO) 180 K/uL (150-450); RED BLOOD CELL COUNT(AUTO) 3.69 MIL/uL (4.00-5.20); RED CELL DISTRIBUTION WIDTH 14.8 % (11.5-14.5)
[2020-01-31 03:27] LABS: ALANINE AMINOTRANSFERASE 25 U/L (12-78); ALBUMIN 3.7 g/dL (3.4-5.0); ALKALINE PHOSPHATASE 228 U/L (46-116); ANION GAP 10 mmol/L (8-16); ASPARTATE AMINOTRANSFERASE 15 U/L (15-37); BILIRUBIN,TOTAL 0.2 mg/dL (0.1-1.0); CALCIUM, TOTAL 10.2 mg/dL (8.8-10.5); CARBON DIOXIDE 26 mmol/L (22-29); CHLORIDE 97 mmol/L (98-107); CREATININE 2.12 mg/dL (0.60-1.30); GLOMERULAR FILTR. RATE CALC 24 mL/min (>60); LIPASE 386 U/L (73-393); SODIUM SERUM 133 mmol/L (136-145); UREA NITROGEN, BLOOD 32 mg/dL (7-18)
[2020-01-31 03:30] LABS: GLUCOSE,RANDOM 437 mg/dL (70-110)
[2020-01-31 03:35] LABS: GLUCOSE,POINT OF CARE 424 MG/DL (70-110)
[2020-01-31 04:48] LABS: GLUCOSE,POINT OF CARE 145 MG/DL (70-110)
[2020-01-31 05:10] VITALS: BP 114/76
== END 2020-01-31 05:20 | disposition home or self-care (01) ==
LOC: EMS 01:37
DX: K52.9 Noninfective gastroenteritis and colitis, unspecified (principal); E11.65 Type 2 diabetes mellitus with hyperglycemia; Z90.49 Acquired absence of other specified parts of digestive tract; F32.9 Major depressive disorder, single episode, unspecified; F12.10 Cannabis abuse, uncomplicated; F17.290 Nicotine dependence, other tobacco product, uncomplicated; Z79.4 Long term (current) use of insulin; Z79.899 Other long term (current) drug therapy; Z88.5 Allergy status to narcotic agent
CPT/HCPCS: 80053; 82962; 83690; 84484; 85025; 93005; 96361; 96374; 96375; 99284; 99406; G0480; J1815; J2405; J7030

== ENCOUNTER 2020-05-19 05:00 | Emergency (ER) | payer MEDICARE, OTHER ==
[~2020-05-19] VITALS: Ht 162.6 cm; Wt 63.6 kg
[2020-05-19 05:04] VITALS: BP 132/89
[2020-05-19 07:36] LABS: GLUCOSE,POINT OF CARE 192 MG/DL (70-110)
== END 2020-05-19 07:09 | disposition home or self-care (01) ==
LOC: EMS 05:00
DX: R60.0 Localized edema (principal); F32.9 Major depressive disorder, single episode, unspecified; E11.9 Type 2 diabetes mellitus without complications; F20.9 Schizophrenia, unspecified; F17.200 Nicotine dependence, unspecified, uncomplicated; Z90.710 Acquired absence of both cervix and uterus; Z90.89 Acquired absence of other organs; Z88.5 Allergy status to narcotic agent; Z88.1 Allergy status to other antibiotic agents; Z88.8 Allergy status to other drugs, medicaments and biological substances; Z79.4 Long term (current) use of insulin; Z79.899 Other long term (current) drug therapy

== ENCOUNTER 2020-07-31 14:27 | Emergency (ER) | payer MEDICARE, OTHER ==
[~2020-07-31] VITALS: Ht 162.6 cm; Wt 63.6 kg
[~2020-07-31 14:27] MED LIST changes: +AMLO-257 PO; -AMLO5TAB9 PO; +DULO-8 PO; -DULO60CA44 PO
[2020-07-31] MEDS ORDERED: INSLAN SQ (14:41)
[2020-07-31] MEDS ORDERED: CARI350T26 PO (14:41)
[2020-07-31] MEDS ORDERED: DULO-8 PO (14:41)
[2020-07-31 16:23] LABS: BASOPHILS % (AUTO) 0.9 % (0.0-2.0); EOSINOPHILS % (AUTO) 0.8 % (1.0-6.0); HEMATOCRIT 28.8 % (36-46); HEMOGLOBIN 9.4 g/dL (12.0-16.0); LYMPHOCYTES # (AUTO) 1.2 K/uL (1.0-4.8); LYMPHOCYTES % (AUTO) 20.5 % (22.0-44.0); MEAN CORPUSCULAR HEMOGLOBIN 28.8 pg (26.0-34.0); MEAN CORPUSCULAR HGB CONC 32.6 G/dL (31.0-37.0); MEAN CORPUSCULAR VOLUME 88 fL (80-100); MONOCYTES # (AUTO) 0.5 K/uL (0.1-1.0); MONOCYTES % (AUTO) 8.7 % (2.0-9.0); NEUTROPHILS # (AUTO) 3.9 K/uL (1.8-7.7); NEUTROPHILS % (AUTO) 69.1 % (40.0-70.0); PLATELET COUNT (AUTO) 186 K/uL (150-450); RED BLOOD CELL COUNT(AUTO) 3.26 MIL/uL (4.00-5.20); RED CELL DISTRIBUTION WIDTH 14.1 % (11.5-14.5)
[2020-07-31 16:35] LABS: CALCIUM, TOTAL 9.6 mg/dL (8.8-10.5); CREATININE 4.21 mg/dL (0.60-1.30); POTASSIUM 5.4 mmol/L (3.5-5.1)
[2020-07-31 16:43] LABS: ALBUMIN 3.8 g/dL (3.4-5.0); BILIRUBIN,TOTAL 0.3 mg/dL (0.1-1.0); TOTAL PROTEIN, SERUM 7.8 g/dL (6.4-8.2)
[2020-07-31 16:56] LABS: APPEARANCE,URINE CLOUDY (CLEAR); GLUCOSE, URINE (UA) NEGATIVE (NEGATIVE); KETONES,URINE NEGATIVE (NEGATIVE); LEUKOCYTE ESTERASE ,URINE TRACE (NEGATIVE); NITRATE,URINE NEGATIVE (NEGATIVE); OCCULT BLOOD,URINE NEGATIVE (NEGATIVE); PROTEIN,URINE NEGATIVE (NEGATIVE); UROBILINOGEN,URINE 0.2 mg/dL (<=1.0)
[2020-07-31 17:02] LABS: BILIRUBIN,URINE PRELIM. POSITIVE (NEGATIVE)
[2020-07-31 17:23] LABS: RBC,URINE None Seen /HPF (0-2)
[2020-07-31 17:24] LABS: BACTERIA,URINE Few /HPF (None Seen); SQUAMOUS EPITHELIAL CELL,UR Moderate /LPF (None Seen)
[2020-07-31 17:25] LABS: CALCIUM OXALATE CRYSTALS,UR Rare /LPF (None Seen)
[2020-07-31 18:59] VITALS: BP 118/78
[2020-07-31 19:03] LABS: GLUCOSE,POINT OF CARE 50 MG/DL (70-110)
[2020-07-31 19:03] LABS: GLUCOSE,POINT OF CARE 85 MG/DL (70-110)
== END 2020-07-31 19:05 | disposition home or self-care (01) ==
LOC: EMS 14:27
DX: N39.0 Urinary tract infection, site not specified (principal); E11.22 Type 2 diabetes mellitus with diabetic chronic kidney disease; N18.9 Chronic kidney disease, unspecified; F20.9 Schizophrenia, unspecified; F12.90 Cannabis use, unspecified, uncomplicated; Z90.89 Acquired absence of other organs; Z90.710 Acquired absence of both cervix and uterus; Z88.5 Allergy status to narcotic agent; Z88.8 Allergy status to other drugs, medicaments and biological substances; Z79.899 Other long term (current) drug therapy; Z79.4 Long term (current) use of insulin
CPT/HCPCS: 87086

== ENCOUNTER 2021-05-31 11:24 | Emergency (ER) | payer MEDICARE, OTHER ==
[~2021-05-31] VITALS: Ht 162.6 cm; Wt 65.9 kg
[~2021-05-31 11:24] MED LIST changes: +CARI350T26 PO; -LISI-661 PO; +LISI-893 PO; -LURA40TA2 PO
[2021-05-31 11:38] VITALS: BP 130/72
[2021-05-31] MEDS ORDERED: LIDOCAINE 5% TRANSDERMAL PATCH TD ONE (12:30)
[2021-05-31] MEDS ORDERED: ACETAMINOPHEN 500 MG TABLET PO ONE (12:30)
== END 2021-05-31 13:45 | disposition left against medical advice (07) ==
LOC: EMS 11:24
DX: S20.212A Contusion of left front wall of thorax, initial encounter (principal); E11.9 Type 2 diabetes mellitus without complications; F32.9 Major depressive disorder, single episode, unspecified; F20.9 Schizophrenia, unspecified; F12.90 Cannabis use, unspecified, uncomplicated; Z88.5 Allergy status to narcotic agent; Z88.8 Allergy status to other drugs, medicaments and biological substances; Z79.899 Other long term (current) drug therapy; V49.49XA Driver injured in collision with other motor vehicles in traffic accident, initial encounter; Y93.89 Activity, other specified; Y92.89 Other specified places as the place of occurrence of the external cause; Y99.8 Other external cause status
CPT/HCPCS: 82962; 99282

== ENCOUNTER → 2021-06-09 | Outpatient (CLI) | payer MEDICARE, OTHER ==
[~2021-06-09] MED LIST changes: -DULO-8 PO; +DULO60CA98 PO
== END | disposition home or self-care (01) ==
LOC: RADPV 10:49
PROVIDERS: ATTEND Internal Medicine Geriatric Medicine
DX: M25.512 Pain in left shoulder (principal)
CPT/HCPCS: 73030-TC

== ENCOUNTER 2021-07-31 23:52 | Emergency (ER) | payer MEDICARE, OTHER ==
[~2021-07-31] VITALS: Ht 163.8 cm; Wt 68.2 kg
[2021-08-01] MEDS ORDERED: INSULIN REGULAR, HUMAN 100 UNITS/ML SQ ONE (02:15)
[2021-08-01] MEDS ORDERED: LIDOCAINE 2%/EPI 1:200,000/PF 10 ML VIAL ID ONE (02:15)
[2021-08-01] MEDS ORDERED: LIDOCAINE 2%/EPI 1:200,000/PF 20 ML VIAL ID ONE (03:00)
[2021-08-01 03:26] VITALS: BP 133/69
== END 2021-08-01 03:30 | disposition home or self-care (01) ==
LOC: EMS 23:53
DX: L02.212 Cutaneous abscess of back [any part, except buttock and flank] (principal); E11.9 Type 2 diabetes mellitus without complications; F32.9 Major depressive disorder, single episode, unspecified; F20.9 Schizophrenia, unspecified; Z90.49 Acquired absence of other specified parts of digestive tract; F12.90 Cannabis use, unspecified, uncomplicated; Z90.710 Acquired absence of both cervix and uterus; Z88.5 Allergy status to narcotic agent; Z88.8 Allergy status to other drugs, medicaments and biological substances; Z79.899 Other long term (current) drug therapy
CPT/HCPCS: 10060; 87070; 87077; 87186; 87205; 96372; 99283; J1815

== ENCOUNTER 2021-08-03 06:16 | Emergency (ER) | payer MEDICARE, OTHER ==
[~2021-08-03] VITALS: Ht 162.6 cm; Wt 77.0 kg
[2021-08-03 06:23] VITALS: BP 125/73
== END 2021-08-03 06:52 | disposition home or self-care (01) ==
LOC: EMS 06:18
DX: L02.212 Cutaneous abscess of back [any part, except buttock and flank] (principal); E11.9 Type 2 diabetes mellitus without complications
CPT/HCPCS: 99282; Z7502

== ENCOUNTER 2021-08-07 08:48 | Emergency (ER) | payer MEDICARE, OTHER ==
[~2021-08-07] VITALS: Ht 162.6 cm; Wt 68.2 kg
[2021-08-07 09:40] VITALS: BP 100/69
== END 2021-08-07 10:13 | disposition home or self-care (01) ==
LOC: EMS 08:48
DX: L02.212 Cutaneous abscess of back [any part, except buttock and flank] (principal); F32.9 Major depressive disorder, single episode, unspecified; F20.9 Schizophrenia, unspecified; F12.90 Cannabis use, unspecified, uncomplicated; E11.9 Type 2 diabetes mellitus without complications; Z79.4 Long term (current) use of insulin; Z88.5 Allergy status to narcotic agent; Z88.6 Allergy status to analgesic agent; Z90.89 Acquired absence of other organs; Z90.710 Acquired absence of both cervix and uterus
CPT/HCPCS: 82962; 99282

== ENCOUNTER → 2022-02-12 | Emergency (ER) | payer MEDICARE, OTHER ==
[~2022-02-12] MED LIST changes: +AMLO10TA55 PO; +ATOR-2 PO; +CARI-493 PO; -CARI350T26 PO; +CARV6.2534 PO; +CEPH-558 PO; +DULO30CA89 PO; +FURO20TA4 PO; +TRAZ-283 PO
== END | disposition left against medical advice (07) ==
LOC: EMS 11:25
DX: R53.83 Other fatigue (principal); Z53.21 Procedure and treatment not carried out due to patient leaving prior to being seen by health care provider

== ENCOUNTER 2022-10-31 18:59 | Emergency (ER) | payer MEDICARE, OTHER ==
[~2022-10-31] VITALS: Ht 162.6 cm; Wt 75.0 kg
[~2022-10-31 18:59] MED LIST changes: -AMLO-257 PO; -AMLO10TA55 PO; +ARIP10TA38 PO; -ATOR-2 PO; -CARI-493 PO; -CEPH-558 PO; +CIPR-279 PO; +DULO-114 PO; -DULO30CA89 PO; -DULO60CA98 PO; -INSLAN SQ; +INSU3INS3 SQ; +LINA5TAB PO; -LISI-893 PO; -PREG50 PO; -TRAZ-257 PO
[2022-10-31] MEDS ORDERED: SODIUM CHLORIDE 0.9% 1,000 ML IV ONE (20:00)
[2022-10-31 20:08] LABS: COVID AG,FIA SOURCE NASAL SWAB
[2022-10-31 20:10] LABS: BASOPHILS % (AUTO) 1.1 % (0.0-2.0); EOSINOPHILS % (AUTO) 1.1 % (1.0-6.0); HEMATOCRIT 34.1 % (36-46); HEMOGLOBIN 10.8 g/dL (12.0-16.0); LYMPHOCYTES # (AUTO) 1.8 K/uL (1.0-4.8); LYMPHOCYTES % (AUTO) 33.9 % (22.0-44.0); MEAN CORPUSCULAR HEMOGLOBIN 27.9 pg (26.0-34.0); MEAN CORPUSCULAR HGB CONC 31.7 G/dL (31.0-37.0); MEAN CORPUSCULAR VOLUME 88 fL (80-100); MONOCYTES # (AUTO) 0.3 K/uL (0.1-1.0); NEUTROPHILS # (AUTO) 3.1 K/uL (1.8-7.7); NEUTROPHILS % (AUTO) 57.9 % (40.0-70.0); RED BLOOD CELL COUNT(AUTO) 3.87 MIL/uL (4.00-5.20); RED CELL DISTRIBUTION WIDTH 14.9 % (11.5-14.5)
[2022-10-31 20:22] LABS: PLATELET COUNT (AUTO) 86 K/uL (150-450)
[2022-10-31 20:23] LABS: PLATELET MORPHOLOGY COMMENT LARGE PLTS PRESENT
[2022-10-31 20:26] LABS: ALBUMIN 4.4 g/dL (3.4-5.0); BILIRUBIN,TOTAL 0.4 mg/dL (0.1-1.0); CALCIUM, TOTAL 9.9 mg/dL (8.8-10.5); CREATININE 3.4 mg/dL (0.60-1.30); POTASSIUM 4.1 mmol/L (3.5-5.1)
[2022-10-31 20:40] LABS: INFLUENZA TYPE A NEGATIVE FOR TYPE A (NEGATIVE); INFLUENZA TYPE B NEGATIVE FOR TYPE B (NEGATIVE)
[2022-10-31] MEDS ORDERED: ACETAMINOPHEN 500 MG TABLET PO ONE (21:15)
[2022-10-31] MEDS ORDERED: INSULIN REGULAR, HUMAN 100 UNITS/ML IVP ONE (22:00)
[2022-10-31 22:41] LABS: GLUCOMETER DEV NAME(LOC) ERT.5; GLUCOSE,POINT OF CARE 446 MG/DL (70-110)
[2022-10-31 23:46] VITALS: BP 133/74
[2022-11-01 02:51] LABS: GLUCOMETER DEV NAME(LOC) ERT.5; GLUCOSE,POINT OF CARE 346 MG/DL (70-110)
== END 2022-11-01 00:05 | disposition home or self-care (01) ==
LOC: EMS 18:59
DX: B34.9 Viral infection, unspecified (principal); E11.65 Type 2 diabetes mellitus with hyperglycemia; E11.22 Type 2 diabetes mellitus with diabetic chronic kidney disease; N18.9 Chronic kidney disease, unspecified; F32.A Depression, unspecified; F20.9 Schizophrenia, unspecified; F12.90 Cannabis use, unspecified, uncomplicated; Z87.891 Personal history of nicotine dependence; Z90.711 Acquired absence of uterus with remaining cervical stump; Z90.49 Acquired absence of other specified parts of digestive tract; Z98.890 Other specified postprocedural states; Z88.5 Allergy status to narcotic agent; Z88.8 Allergy status to other drugs, medicaments and biological substances; Z20.822 Contact with and (suspected) exposure to COVID-19
CPT/HCPCS: 99284; 96374; 71045; 96361; 87426; 80053; 82962; 85025; 87804; 36415; J7030; J1815

== ENCOUNTER 2022-12-21 10:54 | Emergency (ER) | payer MEDICARE, OTHER ==
[~2022-12-21] VITALS: Ht 162.6 cm; Wt 68.2 kg
[~2022-12-21 10:54] MED LIST changes: -ARIP10TA38 PO; -CIPR-279 PO; -DULO-114 PO
[2022-12-21 13:38] LABS: COVID AG,FIA SOURCE NASAL SWAB
[2022-12-21 14:09] LABS: INFLUENZA TYPE A NEGATIVE FOR TYPE A (NEGATIVE); INFLUENZA TYPE B NEGATIVE FOR TYPE B (NEGATIVE)
[2022-12-21 14:45] VITALS: BP 124/76
== END 2022-12-21 14:54 | disposition home or self-care (01) ==
LOC: EMS 11:05
DX: J06.9 Acute upper respiratory infection, unspecified (principal); D64.9 Anemia, unspecified; F32.A Depression, unspecified; E11.9 Type 2 diabetes mellitus without complications; F20.9 Schizophrenia, unspecified; F12.90 Cannabis use, unspecified, uncomplicated; Z90.49 Acquired absence of other specified parts of digestive tract; Z90.710 Acquired absence of both cervix and uterus; Z87.891 Personal history of nicotine dependence; Z88.5 Allergy status to narcotic agent; Z88.6 Allergy status to analgesic agent; Z88.8 Allergy status to other drugs, medicaments and biological substances; Z20.822 Contact with and (suspected) exposure to COVID-19; Z98.890 Other specified postprocedural states
CPT/HCPCS: 71045; 87804; 99284

== ENCOUNTER 2023-02-14 10:58 | Emergency (ER) | payer MEDICARE, OTHER ==
[~2023-02-14] VITALS: Ht 162.6 cm; Wt 72.7 kg
[2023-02-14] MEDS ORDERED: ACETAMINOPHEN 500 MG TABLET PO ONE (12:30)
[2023-02-14] MEDS ORDERED: ACETAMINOPHEN 650 MG/20.3 ML SOLUTION UDCUP PO ONE (12:30)
[2023-02-14 13:27] VITALS: BP 121/74
== END 2023-02-14 13:32 | disposition home or self-care (01) ==
LOC: EMS 11:03
DX: S76.911A Strain of unspecified muscles, fascia and tendons at thigh level, right thigh, initial encounter (principal); F32.A Depression, unspecified; E11.9 Type 2 diabetes mellitus without complications; E78.00 Pure hypercholesterolemia, unspecified; I10 Essential (primary) hypertension; F20.9 Schizophrenia, unspecified; F12.90 Cannabis use, unspecified, uncomplicated; Z90.49 Acquired absence of other specified parts of digestive tract; Z90.710 Acquired absence of both cervix and uterus; Z98.890 Other specified postprocedural states; Z87.891 Personal history of nicotine dependence; Z88.5 Allergy status to narcotic agent; Z88.8 Allergy status to other drugs, medicaments and biological substances; X58.XXXA Exposure to other specified factors, initial encounter; Y93.89 Activity, other specified; Y92.89 Other specified places as the place of occurrence of the external cause; Y99.8 Other external cause status
CPT/HCPCS: 93970; 99284; Z7502; Z7610

== ENCOUNTER 2023-02-17 10:01 | Emergency (ER) | payer MEDICARE, OTHER ==
[~2023-02-17] VITALS: Ht 154.9 cm; Wt 72.7 kg
[2023-02-17] MEDS ORDERED: INSULIN REGULAR, HUMAN 100 UNITS/ML IVP ONE ×2 (10:45→13:30)
[2023-02-17] MEDS ORDERED: SODIUM CHLORIDE 0.9% 1,000 ML IV ONE (10:45)
[2023-02-17] MEDS ORDERED: DiphenhydrAMINE HCL 50 MG/ML VIAL IVP ONE (10:45)
[2023-02-17 11:03] LABS: BASOPHILS % (AUTO) 0.6 % (0.0-2.0); EOSINOPHILS % (AUTO) 3.5 % (1.0-6.0); HEMATOCRIT 26.7 % (36-46); HEMOGLOBIN 8.4 g/dL (12.0-16.0); LYMPHOCYTES % (AUTO) 15.7 % (22.0-44.0); MEAN CORPUSCULAR HEMOGLOBIN 27.6 pg (26.0-34.0); MEAN CORPUSCULAR HGB CONC 31.5 G/dL (31.0-37.0); MEAN CORPUSCULAR VOLUME 88 fL (80-100); MONOCYTES # (AUTO) 0.6 K/uL (0.1-1.0); MONOCYTES % (AUTO) 9.8 % (2.0-9.0); NEUTROPHILS # (AUTO) 4.4 K/uL (1.8-7.7); NEUTROPHILS % (AUTO) 70.4 % (40.0-70.0); RED BLOOD CELL COUNT(AUTO) 3.05 MIL/uL (4.00-5.20); RED CELL DISTRIBUTION WIDTH 14.9 % (11.5-14.5)
[2023-02-17 11:24] LABS: PLATELET COUNT (AUTO) 35 K/uL (150-450)
[2023-02-17 11:27] LABS: ALBUMIN 3.1 g/dL (3.4-5.0); BILIRUBIN,TOTAL 0.3 mg/dL (0.1-1.0); CALCIUM, TOTAL 9.2 mg/dL (8.8-10.5); CREATININE 2.46 mg/dL (0.60-1.30); POTASSIUM 4.6 mmol/L (3.5-5.1); TOTAL PROTEIN, SERUM 7.9 g/dL (6.4-8.2)
[2023-02-17 11:51] LABS: GLUCOSE,POINT OF CARE 485 MG/DL (70-110)
[2023-02-17 12:31] LABS: GLUCOSE,POINT OF CARE 376 MG/DL (70-110)
[2023-02-17] MEDS ORDERED: NYST30OI6 TP (13:53)
[2023-02-17] MEDS ORDERED: HYDR30CR3 TP (13:53)
[2023-02-17 13:59] VITALS: BP 148/94
[2023-02-17 14:01] LABS: GLUCOSE,POINT OF CARE 255 MG/DL (70-110)
== END 2023-02-17 14:01 | disposition home or self-care (01) ==
LOC: EMS 10:07
DX: E11.65 Type 2 diabetes mellitus with hyperglycemia (principal); L30.4 Erythema intertrigo; F32.A Depression, unspecified; E78.00 Pure hypercholesterolemia, unspecified; I10 Essential (primary) hypertension; F20.9 Schizophrenia, unspecified; F12.90 Cannabis use, unspecified, uncomplicated; Z90.49 Acquired absence of other specified parts of digestive tract; Z90.710 Acquired absence of both cervix and uterus; Z87.891 Personal history of nicotine dependence; Z98.890 Other specified postprocedural states; Z88.5 Allergy status to narcotic agent; Z88.8 Allergy status to other drugs, medicaments and biological substances
CPT/HCPCS: 99284; 96374; 96361; 96375; 80053; 85025; 82962; J1200; J7030; J1815

== ENCOUNTER 2023-02-25 11:34 | Inpatient (IN) | payer MEDICARE, OTHER ==
[~2023-02-25] VITALS: Ht 162.6 cm; Wt 74.9 kg
[~2023-02-25 11:34] MED LIST changes: +HYDR30CR3 TP; +NYST30OI6 TP
[2023-02-25 12:18] LABS: BASOPHILS % (AUTO) 0.6 % (0.0-2.0); EOSINOPHILS % (AUTO) 2.7 % (1.0-6.0); HEMATOCRIT 31.7 % (36-46); HEMOGLOBIN 10.2 g/dL (12.0-16.0); LYMPHOCYTES # (AUTO) 1.7 K/uL (1.0-4.8); LYMPHOCYTES % (AUTO) 22.4 % (22.0-44.0); MEAN CORPUSCULAR HEMOGLOBIN 27.9 pg (26.0-34.0); MEAN CORPUSCULAR HGB CONC 32.2 G/dL (31.0-37.0); MEAN CORPUSCULAR VOLUME 87 fL (80-100); MONOCYTES # (AUTO) 0.8 K/uL (0.1-1.0); MONOCYTES % (AUTO) 10.6 % (2.0-9.0); NEUTROPHILS # (AUTO) 4.9 K/uL (1.8-7.7); NEUTROPHILS % (AUTO) 63.7 % (40.0-70.0); RED BLOOD CELL COUNT(AUTO) 3.67 MIL/uL (4.00-5.20); RED CELL DISTRIBUTION WIDTH 15.2 % (11.5-14.5)
[2023-02-25 12:21] LABS: GLUCOMETER DEV NAME(LOC) ERT.5; GLUCOSE,POINT OF CARE 84 MG/DL (70-110)
[2023-02-25 12:23] LABS: CALCIUM, TOTAL 10.2 mg/dL (8.8-10.5); CREATININE 1.9 mg/dL (0.60-1.30); POTASSIUM 4.1 mmol/L (3.5-5.1)
[2023-02-25 12:28] LABS: ALBUMIN 3.5 g/dL (3.4-5.0); BILIRUBIN,TOTAL 0.3 mg/dL (0.1-1.0); MAGNESIUM 2.4 mg/dL (1.80-2.40); PHOSPHORUS 2.9 mg/dL (2.5-4.9); TOTAL PROTEIN, SERUM 8.4 g/dL (6.4-8.2)
[2023-02-25 12:32] LABS: PROTHROMBIN TIME 10.6 SEC (9.4-11.6)
[2023-02-25 12:36] LABS: PLATELET COUNT (AUTO) 32 K/uL (150-450)
[2023-02-25 13:21] LABS: APPEARANCE,URINE HAZY (CLEAR); BILIRUBIN,URINE NEGATIVE (NEGATIVE); GLUCOSE, URINE (UA) TRACE mg/dL (NEGATIVE); KETONES,URINE NEGATIVE (NEGATIVE); LEUKOCYTE ESTERASE ,URINE LARGE (NEGATIVE); NITRATE,URINE NEGATIVE (NEGATIVE); OCCULT BLOOD,URINE LARGE (NEGATIVE); PH,URINE 5.5 (5.0-8.0); PROTEIN,URINE 100-200,SEE CONFIRM mg/dL (NEGATIVE); SPECIFIC GRAVITIY, URINE 1.009 (1.003-1.030); UROBILINOGEN,URINE <=1.0 mg/dL (<=1.0)
[2023-02-25 13:29] LABS: RBC,URINE >100 /HPF (0-2); SULFOSALICYLIC ACID,URINE 3+ (Negative)
[2023-02-25 13:30] LABS: BACTERIA,URINE Moderate /HPF (None Seen); SQUAMOUS EPITHELIAL CELL,UR Moderate /LPF (None Seen); WBC,URINE 51-100 /HPF (0-5)
[2023-02-25] MEDS ORDERED: CefTRIAXone 1 GM/DEXTROSE 50 ML IV ONE (13:45)
[2023-02-25] MEDS ORDERED: CARI-493 PO (14:10)
[2023-02-25] MEDS ORDERED: ARIP10TA38 PO (14:10)
[2023-02-25] MEDS ORDERED: DULO-114 PO (14:10)
[2023-02-25] MEDS ORDERED: INSU100I3 SQ (14:10)
[2023-02-25] MEDS ORDERED: CEFU250T87 PO (14:10)
[2023-02-25 14:46] LABS: GLUCOMETER DEV NAME(LOC) ERT.5; GLUCOSE,POINT OF CARE 252 MG/DL (70-110)
[2023-02-25 15:00] LABS: COVID AG,FIA SOURCE NASOPHARYNGEAL
[2023-02-25 15:10] VITALS: BP 163/63
[2023-02-25] MEDS ORDERED: ACETAMINOPHEN 325 MG TABLET PO PRN ×2 (15:15→19:45)
[2023-02-25] MEDS ORDERED: ONDANSETRON HCL 4 MG/2 ML VIAL IVP PRN ×2 (15:15→19:45)
[2023-02-25] MEDS ORDERED: 0.9% SODIUM CHLORIDE 10 ML SYRINGE IVP PRN (15:15)
[2023-02-25] MEDS: NYSTATIN 30 GM OINTMENT TP SCH ×2 (16:29→21:28)
[2023-02-25] MEDS: CARISOPRODOL 350 MG TABLET PO PRN (18:12)
[2023-02-25] MEDS ORDERED: MAGNESIUM HYDROXIDE SUSPENSION 30 ML UDCUP PO PRN (19:45)
[2023-02-25] MEDS ORDERED: BISACODYL 10 MG RECTAL RECTAL SUPPOSITORY PR PRN (19:45)
[2023-02-25] MEDS ORDERED: ZOLPIDEM TARTRATE 5 MG TABLET PO PRN (19:45)
[2023-02-25] MEDS ORDERED: IPRATROPIUM BROMIDE 0.5 MG/2.5 ML NEB SOLUTION NEB PRN (19:45)
[2023-02-25] MEDS ORDERED: CefTRIAXone SODIUM 2 GM in DEXTROSE 5%-WATER 50 ML IV SCH (19:45)
[2023-02-25 20:00] VITALS: BP 131/76
[2023-02-25] MEDS ORDERED: DEXTROSE 50%-WATER 25 GM/50 ML SYRINGE IVP PRN (20:00)
[2023-02-25 20:57] LABS: GLUCOMETER DEV NAME(LOC) 5N.1C; GLUCOSE,POINT OF CARE 302 MG/DL (70-110)
[2023-02-25] MEDS ORDERED: CEFUROXIME AXETIL 250 MG TABLET PO SCH (21:00)
[2023-02-25] MEDS ORDERED: TraZODone HCL 150 MG TABLET PO SCH (21:00)
[2023-02-25] MEDS ORDERED: INSULIN GLARGINE,HUM.REC.ANLOG 100 UNITS/ML SQ SCH (21:00)
[2023-02-25] MEDS: CARVEDILOL 6.25 MG TABLET PO SCH (21:25)
[2023-02-25] MEDS: DULoxetine HCL 30 MG CAPSULE PO SCH (21:25)
[2023-02-25] MEDS: HEPARIN SODIUM,PORCINE 5,000 UNITS/ML VIAL SQ SCH (23:10)
[2023-02-26 00:11] LABS: GLUCOMETER DEV NAME(LOC) 5S.1B; GLUCOSE,POINT OF CARE 268 MG/DL (70-110)
[2023-02-26 00:12] VITALS: BP 113/60
[2023-02-26 04:44] VITALS: BP 161/80
[2023-02-26 05:51] LABS: GLUCOMETER DEV NAME(LOC) 5N.2C; GLUCOSE,POINT OF CARE 226 MG/DL (70-110)
[2023-02-26 06:52] LABS: ALBUMIN 2.8 g/dL (3.4-5.0); BILIRUBIN,TOTAL 0.2 mg/dL (0.1-1.0); CALCIUM, TOTAL 9.1 mg/dL (8.8-10.5); CHOL/HDL RATIO 3.1 (3.9-5.7); CREATININE 1.89 mg/dL (0.60-1.30); FREE T4 (FREE THYROXINE) 1.02 ng/dL (0.76-1.46); POTASSIUM 3.8 mmol/L (3.5-5.1); THYROID STIMULATING HORMONE 1.96 uIU/mL (0.36-3.74); TOTAL PROTEIN, SERUM 7.1 g/dL (6.4-8.2)
[2023-02-26 06:56] LABS: BASOPHILS % (AUTO) 0.9 % (0.0-2.0); EOSINOPHILS % (AUTO) 6.4 % (1.0-6.0); HEMATOCRIT 25.6 % (36-46); HEMOGLOBIN 8.3 g/dL (12.0-16.0); LYMPHOCYTES # (AUTO) 2.2 K/uL (1.0-4.8); LYMPHOCYTES % (AUTO) 38.2 % (22.0-44.0); MEAN CORPUSCULAR HEMOGLOBIN 27.8 pg (26.0-34.0); MEAN CORPUSCULAR HGB CONC 32.5 G/dL (31.0-37.0); MEAN CORPUSCULAR VOLUME 86 fL (80-100); MONOCYTES # (AUTO) 0.4 K/uL (0.1-1.0); MONOCYTES % (AUTO) 6.8 % (2.0-9.0); NEUTROPHILS # (AUTO) 2.7 K/uL (1.8-7.7); NEUTROPHILS % (AUTO) 47.7 % (40.0-70.0); PLATELET COUNT (AUTO) 26 K/uL (150-450); RED BLOOD CELL COUNT(AUTO) 2.99 MIL/uL (4.00-5.20); RED CELL DISTRIBUTION WIDTH 14.8 % (11.5-14.5)
[2023-02-26 07:11] VITALS: BP 124/78
[2023-02-26 07:32] LABS: PLATELET MORPHOLOGY COMMENT LARGE PLTS PRESENT
[2023-02-26] MEDS: HEPARIN SODIUM,PORCINE 5,000 UNITS/ML VIAL SQ SCH (08:00)
[2023-02-26] MEDS: CARISOPRODOL 350 MG TABLET PO PRN (08:09)
[2023-02-26] MEDS: CARVEDILOL 6.25 MG TABLET PO SCH (08:09)
[2023-02-26] MEDS: INSULIN LISPRO 100 UNITS/ML SQ PRN ×2 (08:17→11:40)
[2023-02-26] MEDS: DULoxetine HCL 30 MG CAPSULE PO SCH (08:59)
[2023-02-26] MEDS ORDERED: LinaGLIPtin 5 MG TABLET PO SCH (09:00)
[2023-02-26] MEDS ORDERED: PANTOPRAZOLE SODIUM 40 MG/VIAL IVP SCH (09:00)
[2023-02-26] MEDS ORDERED: FUROSEMIDE 20 MG TABLET PO SCH (09:00)
[2023-02-26] MEDS ORDERED: HYDROCORTISONE 2.5% 30 GM CREAM TP SCH (09:00)
[2023-02-26] MEDS: NYSTATIN 30 GM OINTMENT TP SCH (09:00)
[2023-02-26] MEDS ORDERED: ARIPiprazole 10 MG TABLET PO SCH (09:00)
[2023-02-26] MEDS ORDERED: SODIUM CHLORIDE 0.9% 250 ML IV ONE (11:33)
[2023-02-26 11:39] VITALS: BP 119/69
[2023-02-26 12:26] LABS: GLUCOMETER DEV NAME(LOC) 5N.1C; GLUCOSE,POINT OF CARE 211 MG/DL (70-110)
[2023-02-26] MEDS ORDERED: CefTRIAXone 1 GM/DEXTROSE 50 ML IV SCH (14:00)
[2023-02-26 22:22] LABS: GLUCOMETER DEV NAME(LOC) 5S.1B; GLUCOSE,POINT OF CARE 171 MG/DL (70-110)
== END 2023-02-26 15:40 | disposition home or self-care (01) | DRG 638 ==
LOC: EMS 11:53 → 5S 14:24
PROVIDERS: ADMIT Hospitalist; ATTEND Hospitalist
DX: E11.649 Type 2 diabetes mellitus with hypoglycemia without coma (principal); K50.90 Crohn's disease, unspecified, without complications; N39.0 Urinary tract infection, site not specified; Z20.822 Contact with and (suspected) exposure to COVID-19; F32.A Depression, unspecified; R00.8 Other abnormalities of heart beat; R53.83 Other fatigue; R55 Syncope and collapse; F12.90 Cannabis use, unspecified, uncomplicated; R77.8 Other specified abnormalities of plasma proteins; I12.9 Hypertensive chronic kidney disease with stage 1 through stage 4 chronic kidney disease, or unspecified chronic kidney disease; E11.22 Type 2 diabetes mellitus with diabetic chronic kidney disease; E78.00 Pure hypercholesterolemia, unspecified; F20.9 Schizophrenia, unspecified; G47.00 Insomnia, unspecified; N18.9 Chronic kidney disease, unspecified; Z82.49 Family history of ischemic heart disease and other diseases of the circulatory system; Z79.4 Long term (current) use of insulin; Z83.3 Family history of diabetes mellitus; Z90.711 Acquired absence of uterus with remaining cervical stump; Z88.5 Allergy status to narcotic agent; Z88.8 Allergy status to other drugs, medicaments and biological substances; Z79.899 Other long term (current) drug therapy; Z90.49 Acquired absence of other specified parts of digestive tract
CPT/HCPCS: 70450; 71045; 80053; 80061; 81001; 81002; 82550; 82962; 83036; 83735; 83880; 84100; 84439; 84443; 84484; 85025; 85610; 85730; 87086; 87186; 93005; 99285; C9113; J0696; J1644; J1815; J7050; Q9967; 36415-L1; 36415-TC

== ENCOUNTER 2023-05-27 16:57 | Emergency (ER) | payer MEDICARE, OTHER ==
[~2023-05-27] VITALS: Ht 157.5 cm; Wt 63.6 kg
[~2023-05-27 16:57] MED LIST changes: +ARIP10TA38 PO; +CARI-493 PO; +CEFU250T87 PO; +DULO-114 PO; +INSU100I3 SQ
[2023-05-27 17:34] VITALS: TEMP 98.1
[2023-05-27 18:51] VITALS: BP 153/77; PULSE 90; RESP 18
== END 2023-05-27 21:23 | disposition home or self-care (01) ==
LOC: EMS 16:58
DX: S42.001A Fracture of unspecified part of right clavicle, initial encounter for closed fracture (principal); S22.31XA Fracture of one rib, right side, initial encounter for closed fracture; S80.01XA Contusion of right knee, initial encounter; R45.851 Suicidal ideations; F32.A Depression, unspecified; E11.9 Type 2 diabetes mellitus without complications; E78.00 Pure hypercholesterolemia, unspecified; I10 Essential (primary) hypertension; F20.9 Schizophrenia, unspecified; K50.90 Crohn's disease, unspecified, without complications; F12.90 Cannabis use, unspecified, uncomplicated; Z87.891 Personal history of nicotine dependence; Z90.49 Acquired absence of other specified parts of digestive tract; Z90.710 Acquired absence of both cervix and uterus; Z88.5 Allergy status to narcotic agent; Z88.8 Allergy status to other drugs, medicaments and biological substances; W01.0XXA Fall on same level from slipping, tripping and stumbling without subsequent striking against object, initial encounter; Y93.89 Activity, other specified; Y92.89 Other specified places as the place of occurrence of the external cause; Y99.8 Other external cause status
CPT/HCPCS: 99281; Z7502

== ENCOUNTER 2023-06-10 16:09 | Inpatient (IN) | payer MEDICARE, OTHER ==
[~2023-06-10] VITALS: Ht 162.6 cm; Wt 73.2 kg
[~2023-06-10 16:09] MED LIST changes: -ARIP10TA38 PO; -CARI-493 PO; -CEFU250T87 PO; -DULO-114 PO; -FURO20TA4 PO; -HYDR30CR3 TP; -INSU100I3 SQ; -NYST30OI6 TP; -TRAZ-283 PO
[2023-06-10 16:53] LABS: BASOPHILS % (AUTO) 1.4 % (0.0-2.0); EOSINOPHILS % (AUTO) 3.5 % (1.0-6.0); HEMATOCRIT 26.1 % (36-46); LYMPHOCYTES % (AUTO) 26.7 % (22.0-44.0); MEAN CORPUSCULAR HEMOGLOBIN 26.2 pg (26.0-34.0); MEAN CORPUSCULAR HGB CONC 30.7 G/dL (31.0-37.0); MEAN CORPUSCULAR VOLUME 85 fL (80-100); MONOCYTES # (AUTO) 0.4 K/uL (0.1-1.0); MONOCYTES % (AUTO) 10.9 % (2.0-9.0); NEUTROPHILS # (AUTO) 2.2 K/uL (1.8-7.7); NEUTROPHILS % (AUTO) 57.5 % (40.0-70.0); PLATELET COUNT (AUTO) 86 K/uL (150-450); RED BLOOD CELL COUNT(AUTO) 3.06 MIL/uL (4.00-5.20); RED CELL DISTRIBUTION WIDTH 15.8 % (11.5-14.5)
[2023-06-10 16:59] LABS: ANION GAP 10 mmol/L (8-16); CALCIUM, TOTAL 9.9 mg/dL (8.8-10.5); CARBON DIOXIDE 24 mmol/L (22-29); CHLORIDE 103 mmol/L (98-107); CREATININE 2.26 mg/dL (0.60-1.30); GLOMERULAR FILTR. RATE CALC 22 mL/min (>60); GLUCOSE,RANDOM 89 mg/dL (70-110); POTASSIUM 4.1 mmol/L (3.5-5.1); SODIUM SERUM 137 mmol/L (136-145)
[2023-06-10 17:07] LABS: AMMONIA 14 umol/L (11-32); LACTIC ACID 0.9 mmol/L (0.4-2.0)
[2023-06-10 17:08] LABS: ALBUMIN 2.9 g/dL (3.4-5.0); ALKALINE PHOSPHATASE 196 U/L (46-116); ASPARTATE AMINOTRANSFERASE 48 U/L (15-37); BILIRUBIN,TOTAL 0.2 mg/dL (0.1-1.0); LIPASE 960 U/L (73-393); TOTAL PROTEIN, SERUM 7.6 g/dL (6.4-8.2)
[2023-06-10 17:11] LABS: B-TYPE NATRIURETIC PEPTIDE 231 pg/mL (0-100)
[2023-06-10 17:23] LABS: ALANINE AMINOTRANSFERASE 48 U/L (12-78)
[2023-06-10 17:44] LABS: AMPHET/METH SCREEN,URINE NEGATIVE (NEGATIVE); BARBITURATE SCREEN, URINE NEGATIVE (NEGATIVE); BENZODIAZEPINES SCREEN,URINE NEGATIVE (NEGATIVE); CANNABINOID SCREEN,URINE NEGATIVE (NEGATIVE); COCAINE SCREEN,URINE NEGATIVE (NEGATIVE); METHADONE SCREEN, URINE NEGATIVE (NEGATIVE); OPIATE SCREEN,URINE NEGATIVE (NEGATIVE); PHENCYCLIDINE SCREEN,URINE NEGATIVE (NEGATIVE)
[2023-06-10] MEDS ORDERED: ACETAMINOPHEN 325 MG TABLET PO PRN (19:15)
[2023-06-10] MEDS ORDERED: ALBUTEROL SULFATE 2.5 MG/0.5 ML NEB SOLUTION NEB PRN (19:15)
[2023-06-10] MEDS ORDERED: IPRATROPIUM BROMIDE 0.5 MG/2.5 ML NEB SOLUTION NEB PRN (19:15)
[2023-06-10] MEDS ORDERED: ONDANSETRON HCL 4 MG/2 ML VIAL IVP PRN (19:15)
[2023-06-10] MEDS ORDERED: ZOLPIDEM TARTRATE 5 MG TABLET PO PRN (19:15)
[2023-06-10] MEDS ORDERED: BISACODYL 10 MG RECTAL RECTAL SUPPOSITORY PR PRN (19:15)
[2023-06-10] MEDS ORDERED: MAGNESIUM HYDROXIDE SUSPENSION 30 ML UDCUP PO PRN (19:15)
[2023-06-10] MEDS ORDERED: ATORVASTATIN CALCIUM 40 MG TABLET PO SCH (21:00)
[2023-06-10 21:56] VITALS: BP 156/68; PULSE 63; RESP 19; TEMP 97.6
[2023-06-10] MEDS: DEXTROSE 5%-0.45% SODIUM CHL 1,000 ML IV SCH (22:37)
[2023-06-11] MEDS: HEPARIN SODIUM,PORCINE 5,000 UNITS/ML VIAL SQ SCH ×3 (01:02→16:00)
[2023-06-11 04:47] VITALS: BP 155/90; PULSE 75; RESP 20; TEMP 98.8
[2023-06-11 05:51] LABS: BASOPHILS % (AUTO) 2.3 % (0.0-2.0); EOSINOPHILS % (AUTO) 3.7 % (1.0-6.0); HEMATOCRIT 26.3 % (36-46); HEMOGLOBIN 8.2 g/dL (12.0-16.0); LYMPHOCYTES # (AUTO) 1.6 K/uL (1.0-4.8); LYMPHOCYTES % (AUTO) 43.7 % (22.0-44.0); MEAN CORPUSCULAR HEMOGLOBIN 26.8 pg (26.0-34.0); MEAN CORPUSCULAR HGB CONC 31.3 G/dL (31.0-37.0); MEAN CORPUSCULAR VOLUME 86 fL (80-100); MONOCYTES # (AUTO) 0.4 K/uL (0.1-1.0); MONOCYTES % (AUTO) 9.9 % (2.0-9.0); NEUTROPHILS # (AUTO) 1.5 K/uL (1.8-7.7); NEUTROPHILS % (AUTO) 40.4 % (40.0-70.0); PLATELET COUNT (AUTO) 80 K/uL (150-450); RED BLOOD CELL COUNT(AUTO) 3.07 MIL/uL (4.00-5.20); RED CELL DISTRIBUTION WIDTH 15.8 % (11.5-14.5)
[2023-06-11 06:10] LABS: ALBUMIN 2.6 g/dL (3.4-5.0); BILIRUBIN,TOTAL 0.2 mg/dL (0.1-1.0); CALCIUM, TOTAL 9.1 mg/dL (8.8-10.5); CREATININE 2.02 mg/dL (0.60-1.30); POTASSIUM 4.9 mmol/L (3.5-5.1); TOTAL PROTEIN, SERUM 6.9 g/dL (6.4-8.2)
[2023-06-11 06:16] LABS: GLUCOMETER DEV NAME(LOC) 6N.1
[2023-06-11] MEDS: DEXTROSE 5%-0.45% SODIUM CHL 1,000 ML IV SCH (06:40)
[2023-06-11] MEDS ORDERED: DEXTROSE 50%-WATER 25 GM/50 ML SYRINGE IVP PRN (07:45)
[2023-06-11] MEDS ORDERED: INSULIN LISPRO 100 UNITS/ML SQ PRN (07:45)
[2023-06-11 08:00] VITALS: BP 149/70; PULSE 66; RESP 20; TEMP 97.9
[2023-06-11 08:51] LABS: GLUCOMETER DEV NAME(LOC) 4E.2
[2023-06-11] MEDS ORDERED: ARIPiprazole 10 MG TABLET PO SCH (09:00)
[2023-06-11] MEDS ORDERED: DULoxetine HCL 60 MG CAPSULE PO SCH (09:00)
[2023-06-11] MEDS ORDERED: PANTOPRAZOLE SODIUM 40 MG/VIAL IVP SCH (09:00)
[2023-06-11] MEDS ORDERED: METOPROLOL SUCCINATE 25 MG ER TABLET PO SCH (09:00)
[2023-06-11 12:26] LABS: GLUCOMETER DEV NAME(LOC) 6N.2B
[2023-06-11 15:18] VITALS: BP 136/69; PULSE 71; RESP 20; TEMP 98.5
[2023-06-11 17:31] LABS: GLUCOMETER DEV NAME(LOC) 6N.2B
== END 2023-06-11 17:00 | disposition home or self-care (01) | DRG 438 ==
LOC: EMS 16:10 → 6N 20:30
PROVIDERS: ADMIT Hospitalist; ATTEND Hospitalist
DX: K85.90 Acute pancreatitis without necrosis or infection, unspecified (principal); G93.41 Metabolic encephalopathy; K50.90 Crohn's disease, unspecified, without complications; E11.649 Type 2 diabetes mellitus with hypoglycemia without coma; D63.8 Anemia in other chronic diseases classified elsewhere; E78.00 Pure hypercholesterolemia, unspecified; F20.9 Schizophrenia, unspecified; E11.22 Type 2 diabetes mellitus with diabetic chronic kidney disease; F32.A Depression, unspecified; I12.9 Hypertensive chronic kidney disease with stage 1 through stage 4 chronic kidney disease, or unspecified chronic kidney disease; N18.30 Chronic kidney disease, stage 3 unspecified; Z88.8 Allergy status to other drugs, medicaments and biological substances; Z88.5 Allergy status to narcotic agent; Z90.711 Acquired absence of uterus with remaining cervical stump; Z98.891 History of uterine scar from previous surgery; Z82.49 Family history of ischemic heart disease and other diseases of the circulatory system; Z83.3 Family history of diabetes mellitus; Z79.4 Long term (current) use of insulin; Z79.899 Other long term (current) drug therapy; Z90.49 Acquired absence of other specified parts of digestive tract
CPT/HCPCS: 71045; 74176; 80053; 80307; 82140; 82150; 82962; 83605; 83690; 83880; 84484; 85025; 93005; 99285; C9113; G0480; J1644; 36415-L1; 36415-TC

== ENCOUNTER 2023-08-21 19:50 | Emergency (ER) | payer MEDICARE, OTHER ==
[~2023-08-21] VITALS: Ht 163.8 cm; Wt 75.0 kg
[~2023-08-21 19:50] MED LIST changes: +ARIP10TA38 PO; +ATOR40TA71 PO; -CARV6.2534 PO; +DULO-113 PO; +METO25XL PO
[2023-08-21 20:03] VITALS: BP 112/67; PULSE 62; RESP 18; TEMP 97.6
[2023-08-21] MEDS ORDERED: SODIUM CHLORIDE 0.9% 1,000 ML IV ONE (20:15)
[2023-08-21 20:20] LABS: GLUCOMETER DEV NAME(LOC) ER.6; GLUCOSE,POINT OF CARE 489 MG/DL (70-110)
[2023-08-21 20:23] LABS: BASOPHILS % (AUTO) 0.9 % (0.0-2.0); EOSINOPHILS % (AUTO) 1.7 % (1.0-6.0); HEMATOCRIT 26.3 % (36-46); HEMOGLOBIN 8.3 g/dL (12.0-16.0); LYMPHOCYTES # (AUTO) 1.6 K/uL (1.0-4.8); LYMPHOCYTES % (AUTO) 38.2 % (22.0-44.0); MEAN CORPUSCULAR HEMOGLOBIN 26.5 pg (26.0-34.0); MEAN CORPUSCULAR HGB CONC 31.5 G/dL (31.0-37.0); MEAN CORPUSCULAR VOLUME 84 fL (80-100); MONOCYTES # (AUTO) 0.3 K/uL (0.1-1.0); MONOCYTES % (AUTO) 8.4 % (2.0-9.0); NEUTROPHILS # (AUTO) 2.1 K/uL (1.8-7.7); NEUTROPHILS % (AUTO) 50.8 % (40.0-70.0); RED BLOOD CELL COUNT(AUTO) 3.13 MIL/uL (4.00-5.20); RED CELL DISTRIBUTION WIDTH 15.4 % (11.5-14.5); WHITE BLOOD COUNT (AUTO) 4.1 K/uL (4.5-11.0)
[2023-08-21 20:26] LABS: COVID AG,FIA SOURCE NASAL SWAB
[2023-08-21 20:42] LABS: ALBUMIN 3.1 g/dL (3.4-5.0); BILIRUBIN,TOTAL 0.3 mg/dL (0.1-1.0); CALCIUM, TOTAL 9.1 mg/dL (8.8-10.5); CREATININE 3.39 mg/dL (0.60-1.30); PLATELET COUNT (AUTO) 44 K/uL (150-450); PLATELET MORPHOLOGY COMMENT LARGE PLTS PRESENT; POTASSIUM 5.1 mmol/L (3.5-5.1); RBC MORPHOLOGY COMMENT NORMAL RBC MORPH; TOTAL PROTEIN, SERUM 7.8 g/dL (6.4-8.2)
[2023-08-21 20:52] LABS: SARS-COV2 (COVID) ANTIGEN,FIA Positive (Negative)
== END 2023-08-21 22:13 | disposition left against medical advice (07) ==
LOC: EMS 19:52
DX: U07.1 COVID-19 (principal); F32.A Depression, unspecified; E11.9 Type 2 diabetes mellitus without complications; E78.00 Pure hypercholesterolemia, unspecified; I10 Essential (primary) hypertension; F20.9 Schizophrenia, unspecified; F12.90 Cannabis use, unspecified, uncomplicated; K50.90 Crohn's disease, unspecified, without complications; Z90.49 Acquired absence of other specified parts of digestive tract; Z90.710 Acquired absence of both cervix and uterus; Z98.890 Other specified postprocedural states; Z87.891 Personal history of nicotine dependence; Z88.5 Allergy status to narcotic agent; Z88.8 Allergy status to other drugs, medicaments and biological substances
CPT/HCPCS: 80053; 82962; 85025; 99283

== ENCOUNTER 2023-09-19 00:14 | Emergency (ER) | payer MEDICARE, OTHER ==
[~2023-09-19] VITALS: Ht 162.6 cm; Wt 80.0 kg
[2023-09-19 00:16] VITALS: TEMP 97.9
[2023-09-19] MEDS ORDERED: IBUPROFEN 600 MG TABLET PO ONE (00:45)
[2023-09-19] MEDS ORDERED: IBUP-1492 PO (00:58)
[2023-09-19 01:21] VITALS: BP 125/77; PULSE 71; RESP 18
== END 2023-09-19 01:23 | disposition home or self-care (01) ==
LOC: EMS 00:15
DX: R07.89 Other chest pain (principal); F32.A Depression, unspecified; E11.9 Type 2 diabetes mellitus without complications; E78.00 Pure hypercholesterolemia, unspecified; I10 Essential (primary) hypertension; F20.9 Schizophrenia, unspecified; F12.90 Cannabis use, unspecified, uncomplicated; Z90.49 Acquired absence of other specified parts of digestive tract; Z87.891 Personal history of nicotine dependence; Z90.710 Acquired absence of both cervix and uterus; Z98.890 Other specified postprocedural states; Z88.5 Allergy status to narcotic agent; Z88.6 Allergy status to analgesic agent; Z88.8 Allergy status to other drugs, medicaments and biological substances
CPT/HCPCS: 71045; 93005; 99283

== ENCOUNTER 2023-10-05 12:36 | Emergency (ER) | payer MEDICARE, OTHER ==
[~2023-10-05] VITALS: Ht 162.6 cm; Wt 80.0 kg
[~2023-10-05 12:36] MED LIST changes: +IBUP-1492 PO
[2023-10-05 12:37] VITALS: BP 146/74; PULSE 84; RESP 18; TEMP 98
[2023-10-05 13:00] LABS: COVID AG,FIA SOURCE NASAL SWAB
[2023-10-05 13:33] LABS: SARS-COV2 (COVID) ANTIGEN,FIA Negative (Negative)
[2023-10-05 13:34] LABS: INFLUENZA TYPE A NEGATIVE FOR TYPE A (NEGATIVE); INFLUENZA TYPE B NEGATIVE FOR TYPE B (NEGATIVE)
[2023-10-05] MEDS ORDERED: AMOX500T2 PO (13:56)
[2023-10-05] MEDS ORDERED: PHENYLEPHRINE HCL 0.5% 15 ML NASAL SPRAY NASAL ONE (14:00)
== END 2023-10-05 14:15 | disposition home or self-care (01) ==
LOC: EMS 12:41
DX: H66.92 Otitis media, unspecified, left ear (principal); F32.A Depression, unspecified; E11.9 Type 2 diabetes mellitus without complications; E78.00 Pure hypercholesterolemia, unspecified; I10 Essential (primary) hypertension; F20.9 Schizophrenia, unspecified; F12.90 Cannabis use, unspecified, uncomplicated; Z87.891 Personal history of nicotine dependence; Z90.49 Acquired absence of other specified parts of digestive tract; Z90.710 Acquired absence of both cervix and uterus; Z98.890 Other specified postprocedural states; Z88.5 Allergy status to narcotic agent; Z88.6 Allergy status to analgesic agent; Z20.822 Contact with and (suspected) exposure to COVID-19
CPT/HCPCS: 87430; 87804; 99283

== ENCOUNTER → 2024-01-02 | Outpatient (CLI) | payer MEDICARE, OTHER ==
[~2024-01-02] MED LIST changes: +AMOX500T2 PO
== END | disposition home or self-care (01) ==
LOC: RADMN 08:17
PROVIDERS: ATTEND Internal Medicine Geriatric Medicine
DX: Z01.818 Encounter for other preprocedural examination (principal)
CPT/HCPCS: 71046

== ENCOUNTER 2024-05-21 15:04 | Emergency (ER) | payer MEDICARE, OTHER ==
[~2024-05-21] VITALS: Ht 162.6 cm; Wt 63.6 kg
[2024-05-21 15:07] VITALS: TEMP 98.5
[2024-05-21] MEDS: FUROSEMIDE 20 MG TABLET PO ONE (16:05)
[2024-05-21 16:09] LABS: EOSINOPHILS % (AUTO) 0 % (1.0-6.0); HEMATOCRIT 25.6 % (36-46); LYMPHOCYTES # (AUTO) 0.4 K/uL (1.0-4.8); LYMPHOCYTES % (AUTO) 5.9 % (22.0-44.0); MEAN CORPUSCULAR HEMOGLOBIN 29.5 pg (26.0-34.0); MEAN CORPUSCULAR HGB CONC 31.5 G/dL (31.0-37.0); MEAN CORPUSCULAR VOLUME 94 fL (80-100); MONOCYTES # (AUTO) 0.1 K/uL (0.1-1.0); MONOCYTES % (AUTO) 1.5 % (2.0-9.0); NEUTROPHILS # (AUTO) 5.9 K/uL (1.8-7.7); PLATELET COUNT (AUTO) 119 K/uL (150-450); RED BLOOD CELL COUNT(AUTO) 2.72 MIL/uL (4.00-5.20); RED CELL DISTRIBUTION WIDTH 15.9 % (11.5-14.5); WHITE BLOOD COUNT (AUTO) 6.4 K/uL (4.5-11.0)
[2024-05-21 16:17] LABS: CALCIUM, TOTAL 8.9 mg/dL (8.8-10.5); CREATININE 2.76 mg/dL (0.60-1.30); POTASSIUM 5.1 mmol/L (3.5-5.1)
[2024-05-21 16:18] LABS: NEUTROPHILS % (AUTO) 92.6 % (40.0-70.0)
[2024-05-21 16:34] LABS: TROPONIN I-HIGH SENSITIVITY 62 ng/L (<51)
[2024-05-21 16:59] VITALS: BP 137/73; PULSE 78; RESP 18
[2024-05-21 17:46] LABS: TROPONIN I-HIGH SENSITIVITY 51 ng/L (<51)
[2024-05-21] MEDS ORDERED: FURO20TA4 PO (18:00)
== END 2024-05-21 18:22 | disposition home or self-care (01) ==
LOC: EMS 15:04
DX: R60.0 Localized edema (principal); E11.65 Type 2 diabetes mellitus with hyperglycemia; F25.9 Schizoaffective disorder, unspecified; R79.89 Other specified abnormal findings of blood chemistry; I12.9 Hypertensive chronic kidney disease with stage 1 through stage 4 chronic kidney disease, or unspecified chronic kidney disease; E11.22 Type 2 diabetes mellitus with diabetic chronic kidney disease; N18.9 Chronic kidney disease, unspecified; F12.90 Cannabis use, unspecified, uncomplicated; Z88.5 Allergy status to narcotic agent; Z88.6 Allergy status to analgesic agent; Z79.4 Long term (current) use of insulin
CPT/HCPCS: 80048; 82962; 84484; 85025; 93005; 99284

== ENCOUNTER 2024-07-06 02:20 | Emergency (ER) | payer MEDICARE, OTHER ==
[~2024-07-06] VITALS: Ht 162.6 cm; Wt 72.0 kg
[~2024-07-06 02:20] MED LIST changes: -AMOX500T2 PO; +FURO20TA4 PO
[2024-07-06 04:00] VITALS: BP 121/65; PULSE 89; RESP 18; TEMP 98.3; O2SAT 100
[2024-07-06] MEDS ORDERED: CARB50DR OS (04:00)
== END 2024-07-06 05:13 | disposition home or self-care (01) ==
LOC: EMS 02:21
DX: H11.32 Conjunctival hemorrhage, left eye (principal); F32.A Depression, unspecified; E11.9 Type 2 diabetes mellitus without complications; E78.00 Pure hypercholesterolemia, unspecified; I10 Essential (primary) hypertension; F20.9 Schizophrenia, unspecified; F12.90 Cannabis use, unspecified, uncomplicated; Z87.891 Personal history of nicotine dependence; Z90.49 Acquired absence of other specified parts of digestive tract; Z90.710 Acquired absence of both cervix and uterus; Z98.62 Peripheral vascular angioplasty status; Z98.890 Other specified postprocedural states; Z88.5 Allergy status to narcotic agent; Z88.8 Allergy status to other drugs, medicaments and biological substances
CPT/HCPCS: 99283; Z7502

== ENCOUNTER 2024-07-08 20:42 | Emergency (ER) | payer MEDICARE, OTHER ==
[~2024-07-08] VITALS: Ht 162.6 cm; Wt 67.6 kg
[~2024-07-08 20:42] MED LIST changes: +CARB50DR OS
[2024-07-08] MEDS ORDERED: 0.9% SODIUM CHLORIDE 1,000 ML BAG IV ONE (20:43)
[2024-07-08] MEDS ORDERED: EPINEPHrine 1:10,000 [1 MG/10 ML] SYRINGE IVP ONE (20:43)
[2024-07-08] MEDS ORDERED: SODIUM BICARBONATE [ADULT] 8.4% 50 MEQ/50 ML SYRINGE IVP ONE (20:43)
[2024-07-08] MEDS ORDERED: CALCIUM CHLORIDE 100 MG/ML 10 ML SYRINGE IVP ONE (20:43)
[2024-07-08 20:50] VITALS: PULSE 79; RESP 26; O2SAT 100
[2024-07-08 21:06] LABS: HEMATOCRIT 26.2 % (36-46); HEMOGLOBIN 7.2 g/dL (12.0-16.0); MEAN CORPUSCULAR HEMOGLOBIN 29.7 pg (26.0-34.0); MEAN CORPUSCULAR HGB CONC 27.4 G/dL (31.0-37.0); MEAN CORPUSCULAR VOLUME 108 fL (80-100); RED BLOOD CELL COUNT(AUTO) 2.42 MIL/uL (4.00-5.20); RED CELL DISTRIBUTION WIDTH 16.8 % (11.5-14.5); WHITE BLOOD COUNT (AUTO) 8.2 K/uL (4.5-11.0)
[2024-07-08 21:15] LABS: B-TYPE NATRIURETIC PEPTIDE 321 pg/mL (0-100)
[2024-07-08 21:18] LABS: ALCOHOL, BLOOD (SERUM) < 3 mg/dL (0-10)
[2024-07-08 21:19] LABS: COVID AG,FIA SOURCE NASAL SWAB
[2024-07-08 21:20] LABS: PLATELET COUNT (AUTO) 71 K/uL (150-450)
[2024-07-08 21:23] LABS: BAND NEUTROPHILS % (MANUAL) 13 % (0-5); LYMPHOCYTES % (MANUAL) 29 % (22-44); MONOCYTES % (MANUAL) 1 % (2-9); PLATELET MORPHOLOGY COMMENT LARGE PLTS PRESENT; SEGMENTED NEUTROPHILS % 57 % (40-70); TOTAL CELLS COUNTED 100
[2024-07-08 21:24] LABS: RBC MORPHOLOGY COMMENT ABNORMAL RBC MORPH
[2024-07-08 21:26] LABS: TROPONIN I-HIGH SENSITIVITY 78 ng/L (<51)
[2024-07-08 21:31] LABS: INR 1.2 (0.9-1.1); PROTHROMBIN TIME 12.5 SEC (9.4-11.6)
[2024-07-08 21:35] LABS: SARS-COV2 (COVID) ANTIGEN,FIA Negative (Negative)
[2024-07-08 21:39] LABS: ANION GAP 31 mmol/L (8-16); CHLORIDE 90 mmol/L (98-107); SODIUM SERUM 128 mmol/L (136-145)
[2024-07-08 21:40] LABS: ALANINE AMINOTRANSFERASE 256 U/L (12-78); ALBUMIN 1.9 g/dL (3.4-5.0); ALKALINE PHOSPHATASE 228 U/L (46-116); ASPARTATE AMINOTRANSFERASE 576 U/L (15-37); BILIRUBIN,TOTAL 0.7 mg/dL (0.1-1.0); CREATINE KINASE, TOTAL ONLY 438 U/L (26-192); CREATININE 8.99 mg/dL (0.60-1.30); GLOMERULAR FILTR. RATE CALC 4 mL/min (>60); TOTAL PROTEIN, SERUM 5.8 g/dL (6.4-8.2)
[2024-07-08 21:50] LABS: CARBON DIOXIDE 7 mmol/L (22-29); GLUCOSE,RANDOM 908 mg/dL (70-110); UREA NITROGEN, BLOOD 112 mg/dL (7-18)
[2024-07-08 21:51] LABS: LACTIC ACID 16.9 mmol/L (0.4-2.0); LIPASE 2374 U/L (16-77)
[2024-07-08] MEDS: DEXTROSE 5%-WATER 1,000 ML IV SCH (22:00)
[2024-07-08] MEDS ORDERED: DEXTROSE 50%-WATER 25 GM/50 ML SYRINGE IVP PRN (22:00)
[2024-07-08 22:01] LABS: ABG BASE EXCESS -34.7 mmol/L (-2.0-3.0); ABG CARBOXYHEMOGLOBIN 0.6 % (0.5-1.5); ABG HCO3 1.3 mmol/L (21.0-28.0); ABG METHEMOGLOBIN 0.5 % (0.0-1.5); ABG OXYGEN CONTENT 10.8 mL/dL (15.0-23.0); ABG OXYGEN SATURATION 99.9 % (94.0-98.0); ABG OXYHEMOGLOBIN 98.8 % (94.0-98.0); ABG PCO2 23 mmHg (32.0-45.0); PO2, ARTERIAL BG 518.9 mmHg (83.0-108.0); SOURCE, BLOOD GAS ARTERIAL; TEMPERATURE, FAHRENHEIT, BG 92.9 FAHREN (96.0-98.6)
[2024-07-08] MEDS: SODIUM CHLORIDE 0.9% 1,000 ML IV ONE ×3 (22:03→22:55)
[2024-07-08] MEDS: CALCIUM GLUCONATE 100 MG/ML 10 ML IVP ONE (22:03)
[2024-07-08] MEDS: SODIUM BICARBONATE [ADULT] 8.4% 50 MEQ/50 ML SYRINGE IVP ONE ×2 (22:12→23:00)
[2024-07-08 22:13] LABS: ABG PH 6.651 (7.350-7.450); ABG TOTAL HEMOGLOBIN 6.6 G/dL (12.0-16.0)
[2024-07-08 22:14] LABS: ABG A-A DIFF O2 178.5 mmHg (10-20.0); ALLEN TEST, BLOOD GAS Positive; O2 DEVICE,BLOOD GAS VENTILATOR (ROOM AIR); PEEP,BG 5 cm H2O; SITE, BLOOD GAS LFT RADIAL; SPONTANEOUS VT, BG 460 ml; VT, ABG 360 ml
[2024-07-08] MEDS: NOREPINEPHRINE 8 MG/0.9 % NACL 250 ML IV PRN (22:34)
[2024-07-08] MEDS: INSULIN REGULAR, HUMAN 100 UNITS/ML IVP ONE (22:35)
[2024-07-08] MEDS ORDERED: SODIUM CHLORIDE 0.9% 100 ML ONE (22:40)
[2024-07-08] MEDS ORDERED: INSULIN REGULAR, HUMAN 100 UNITS/ML ONE (22:40)
[2024-07-08] MEDS: EPINEPHrine 1:10,000 [1 MG/10 ML] SYRINGE IVP ONE (22:59)
[2024-07-08 23:05] VITALS: PULSE 109; RESP 28; O2SAT 100
[2024-07-08] MEDS: SODIUM BICARBONATE 150 MEQ in DEXTROSE 5%-WATER 1,000 ML IV ONE (23:05)
[2024-07-08] MEDS: INSULIN REGULAR, HUMAN 100 UNITS in SODIUM CHLORIDE 0.9% 99 ML IV PRN (23:25)
[2024-07-08] MEDS: SODIUM POLYSTYRENE SULFONATE 15 GM/60 ML SUSPENSION BOTTLE PR ONE (23:37)
[2024-07-08] MEDS: PHYTONADIONE 10 MG/ML VIAL SQ ONE (23:43)
[2024-07-08] MEDS: PHYTONADIONE 10 MG in SODIUM CHLORIDE 0.9% 50 ML IV ONE (23:48)
[2024-07-08] MEDS: PANTOPRAZOLE SODIUM 80 MG in SODIUM CHLORIDE 0.9% 100 ML IV SCH (23:50)
[2024-07-08 23:56] LABS: ABG BASE EXCESS -33.2 mmol/L (-2.0-3.0); ABG CARBOXYHEMOGLOBIN 0.1 % (0.5-1.5); ABG HCO3 2.1 mmol/L (21.0-28.0); ABG METHEMOGLOBIN 1.2 % (0.0-1.5); ABG OXYGEN CONTENT 9.3 mL/dL (15.0-23.0); ABG OXYHEMOGLOBIN 77.7 % (94.0-98.0); ABG PCO2 34 mmHg (32.0-45.0); ABG TOTAL HEMOGLOBIN 8.4 G/dL (12.0-16.0); PO2, ARTERIAL BG 61.4 mmHg (83.0-108.0); SOURCE, BLOOD GAS ARTERIAL; TEMPERATURE, FAHRENHEIT, BG 90.8 FAHREN (96.0-98.6)
[2024-07-08 23:57] LABS: ABG OXYGEN SATURATION 78.7 % (94.0-98.0); ABG PH 6.663 (7.350-7.450); SITE, BLOOD GAS ARTERIAL LINE
[2024-07-08 23:58] LABS: O2 DEVICE,BLOOD GAS VENTILATOR (ROOM AIR); PEEP,BG 5 cm H2O; SPONTANEOUS VT, BG 404 ml; VT, ABG 360 ml
[2024-07-08] MEDS: SODIUM BICARBONATE 50 MEQ in SODIUM CHLORIDE 0.9% 1,000 ML IV ONE (23:59)
[2024-07-09] MEDS: SODIUM BICARBONATE [ADULT] 8.4% 50 MEQ/50 ML SYRINGE IVP ONE (00:11)
[2024-07-09 01:00] VITALS: PULSE 79; RESP 22; O2SAT 96
[2024-07-09] MEDS: INSULIN REGULAR, HUMAN 100 UNITS/ML IVP PRN (01:15)
[2024-07-09 01:56] LABS: CALCIUM, TOTAL 9.4 mg/dL (8.8-10.5); CREATININE 8.12 mg/dL (0.60-1.30); MAGNESIUM 3.1 mg/dL (1.80-2.40)
[2024-07-09 02:11] LABS: PHOSPHORUS 15.3 mg/dL (2.5-4.9)
[2024-07-09 02:12] LABS: POTASSIUM 6.1 mmol/L (3.5-5.1)
[2024-07-09 02:53] LABS: ABG BASE EXCESS -31.9 mmol/L (-2.0-3.0); ABG HCO3 2.8 mmol/L (21.0-28.0); ABG METHEMOGLOBIN 1.1 % (0.0-1.5); ABG OXYGEN CONTENT 9.4 mL/dL (15.0-23.0); ABG OXYGEN SATURATION 87.6 % (94.0-98.0); ABG OXYHEMOGLOBIN 86.6 % (94.0-98.0); ABG PCO2 32 mmHg (32.0-45.0); ABG TOTAL HEMOGLOBIN 7.6 G/dL (12.0-16.0); PO2, ARTERIAL BG 70.4 mmHg (83.0-108.0); SOURCE, BLOOD GAS ARTERIAL; TEMPERATURE, FAHRENHEIT, BG 89.8 FAHREN (96.0-98.6)
[2024-07-09 02:54] LABS: ABG PH 6.732 (7.350-7.450); SITE, BLOOD GAS ARTERIAL LINE
[2024-07-09 02:55] LABS: O2 DEVICE,BLOOD GAS VENTILATOR (ROOM AIR); PEEP,BG 5 cm H2O; SPONTANEOUS VT, BG 404 ml; VT, ABG 360 ml
[2024-07-09] MEDS ORDERED: INSULIN REGULAR, HUMAN 100 UNITS/ML IVP PRN (03:45)
[2024-07-09] MEDS ORDERED: POTASSIUM CHLORIDE 40 MEQ in SODIUM CHLORIDE 0.45% 1,000 ML IV PRN (03:45)
[2024-07-09] MEDS ORDERED: INSULIN REGULAR, HUMAN 100 UNITS in SODIUM CHLORIDE 0.9% 99 ML IV PRN (03:45)
[2024-07-09] MEDS ORDERED: DEXTROSE 5%-0.45% SODIUM CHL 1,000 ML IV PRN (03:45)
[2024-07-09] MEDS ORDERED: POTASSIUM CHL 20 MEQ/0.45% NS 1,000 ML IV PRN (03:45)
[2024-07-09 04:00] VITALS: BP 62/27; TEMP 89.2; O2SAT 96
[2024-07-09] MEDS: PHENYLEPHRINE 200 MG/D5%-WATER 250 ML IV PRN (04:13)
[2024-07-09 04:16] LABS: GLUCOMETER DEV NAME(LOC) ERT.5; GLUCOSE,POINT OF CARE 473 MG/DL (70-110)
[2024-07-09 04:16] LABS: GLUCOMETER DEV NAME(LOC) ERT.5; GLUCOSE,POINT OF CARE 425 MG/DL (70-110)
[2024-07-09 04:22] VITALS: PULSE 75; RESP 20; O2SAT 98
[2024-07-09] MEDS: SODIUM CHLORIDE 0.45% 1,000 ML IV PRN (04:28)
[2024-07-09 05:06] LABS: GLUCOMETER DEV NAME(LOC) ERT.5; GLUCOSE,POINT OF CARE 393 MG/DL (70-110)
[2024-07-09 11:11] LABS: GLUCOMETER DEV NAME(LOC) ERT.5; GLUCOSE,POINT OF CARE 506 MG/DL (70-110)
== END 2024-07-09 08:06 | disposition admitted as inpatient to this hospital (09) ==
LOC: EMS 20:42 → UNDOADMIN 23:00 → EDH 23:00
DX: I46.9 Cardiac arrest, cause unspecified (principal); E87.5 Hyperkalemia; F32.A Depression, unspecified; E11.9 Type 2 diabetes mellitus without complications; I10 Essential (primary) hypertension; F20.9 Schizophrenia, unspecified; Z87.891 Personal history of nicotine dependence; Z90.710 Acquired absence of both cervix and uterus; Z90.49 Acquired absence of other specified parts of digestive tract; Z20.822 Contact with and (suspected) exposure to COVID-19
CPT/HCPCS: 80048; 80076; 82271; 82550; 82962; 83605; 83690; 83735; 83880; 84100; 84484; 85025; 85610; 85730; 36415; 82805; 92950; 36600; 71045; 70450; 71250; 72125; 72192; 74150; 93005; 51702; 96365; 96366; 96368; 99291; 87426; 94002; 96367; G0480; J0171; J1815 ×2; J3490 ×3; C9113; J3430; J7060; J7030 ×2; J7050 ×2; J2370; 99285